=== PATIENT | male | born 1945 | race Caucasian/White ===

== ENCOUNTER 2023-06-17 03:47 | Emergency (ER) | payer MEDICARE, SELFPAY ==
[2023-06-17 03:51] VITALS: BP 125/83; PULSE 77; RESP 18; TEMP 36.9; O2SAT 97; BMI 25.8
--- NOTE | 2023-06-17 04:27 | ED.AMS ---
HPI - Altered Mental Status General Chief Complaint: Altered Mental Status Stated Complaint: AMS Time Seen by Provider: 06/17/23 03:51 Source: EMS Mode of arrival: EMS Limitations: altered mental status History of Present Illness HPI narrative: Patient comes to the emergency room from [facility] for increased altered mental status. EMS reports the patient has history of dementia. Seems that it today patient was being aggressive, PD was called. Then EMS arrived and brought the patient to the emergency room. Patient is unable to give any history. However, patient's nurse was able to talk to the patient's . Seems that patient was sleeping at 3 in the morning, the staff started moving him around the bed changing sheets, patient became upset and aggressive. Also, patient's states that the patient has history of urinary retention. Recently the Peck catheter was removed because the patient kept pulling it out Related Data Allergies Allergy/AdvReac Type Severity Reaction Status Date / Time No Known Allergies Allergy Verified 06/17/23 04:27 Review of Systems Review of Systems: Yes Unobtainable due to mental condition [facility] Past Medical History Medical History (Updated 06/17/23 @ 05:34 by Brenda Roblero MD) Dementia Social History Social History Alcohol intake: never Smoked in Last 30 Days: No Use of substances other than those prescribed or required for medical reasons: No Advance Directives: No Advance Directives Information Provided: No Physical Exam ED Vital Signs: Vital Signs - 24 hr 06/17/23 03:51 Temperature 98.5 F Pulse Rate 77 Respiratory Rate 18 Blood Pressure 125/83 Pulse Oximetry 97 Oxygen Delivery Method Room Air BMI result Body Mass Index 25.8 Const Other: Appearance: Alert. No acute distress. Not making sense at all but patient is calm Eyes: Pupils equal, round and reactive to light. ENT: Pharynx normal. Neck: Normal inspection. Neck supple. No lymph nodes noted. No crepitus CVS: Normal heart rate and rhythm. Pulses normal. Normal S1 and S2 Respiratory: No respiratory distress. Breath sounds normal. No Wheezing. No rales Abdomen: Soft and nontender. No rigidity. No distention. Skin: Skin warm and dry. Normal skin color. Normal skin turgor. Extremities: No lower extremity edema. No Lacerations. No Rash Neuro: Moving all extremities spontaneously. patient is not able to participating cranial nerve assessment. Psych: calm, cooperative Course Course Course Narrative: -all of patient's labs pending Medical Decision Making Medical Decision Making [facility] Narrative: -I was informed by the patient's nurse that the patient has 400 cc of urine. Patient will be straight cathed. Ideally, patient should be returning to the facility with a Peck catheter. However, the patient's is concerned the patient keeps yancy it out. Patient's requesting that if he retains urine, to be straight cath, no Peck's. -bladder scan shows more than 400 cc of urine. Patient was straight cath, patient calm, cooperative, seems that he is feeling better -patient's white blood cell count 13.1, likely reactive leukocytosis, chemistry within normal limits, urine negative for UTI Patient tested negative for COVID and influenza Differential Diagnosis Differential Diagnoses: The differential diagnosis associated with the presentation includes (Dementia, UTI, anger, urinary retention) Lab Data 06/17/23 04:45 06/17/23 04:45 Labs: Lab Results 06/17/23 06/17/23 Range/Units 04:45 04:52 WBC 13.1 H (4.8-10.8) X10*3/uL RBC 4.50 L (4.60-5.80) X10*6/uL Hgb 14.1 (14.0-18.0) g/dl Hct 41.5 L (42.0-52.0) % MCV 92.2 (80.0-98.0) fL MCH 31.3 (27.0-33.0) pg MCHC 34.0 (31.0-36.0) g/dl RDW 13.9 (11.0-16.0) % Plt Count 233 (160-400) X10*3/uL MPV 9.7 (9.4-12.4) fL Immature Gran % (Auto) 1.6 H (0.0-0.4) % Neut % (Auto) 78.3 H (45-73) % Lymph % (Auto) 12.3 L (20-40) % [place] % (Auto) 7.5 (2-11) % Eos % (Auto) 0.1 (0-4) % Baso % (Auto) 0.2 (0-2) % Lymph # (Auto) 1.6 (1.2-4.9) X10*3/uL [place]ah # (Auto) 1.0 (0.1-1.2) X10*3/uL Eos # (Auto) 0.0 (0.0-0.4) X10*3/uL Baso # (Auto) 0.0 (0.0-0.2) X10*3/uL Abs Immat Gran (auto) 0.21 H (0.00-0.03) X10*3/uL Absolute Neuts (auto) 10.3 H (2.0-8.3) x10*3/uL Absolute Nucleated RBC 0.000 (0.0-0.012) X10*3/uL Nucleated RBC % (auto) 0.0 (0.0-0.2) /100WBC Sodium 141 (135-145) mmol/L Potassium 4.8 (3.3-5.1) mmol/L Chloride 104 (96-108) mmol/L Carbon Dioxide 23 (22-29) mmol/L Anion Gap 19 (12-20) BUN 21 H (9-16) mg/dL Creatinine 1.12 (0.5-1.4) mg/dL Estim Creat Clear Calc 59.6 Estimated GFR > 60 Random Glucose 237 H (60-115) mg/dL Calcium 9.5 (8.4-10.2) mg/dL Total Bilirubin 0.5 (0.0-1.0) mg/dL AST 18 (5-37) U/L ALT 14 (0-40) U/L Alkaline Phosphatase 116 (39-117) U/L Total Protein 6.7 (6.5-8.0) g/dL Albumin 3.8 (3.5-5.0) g/dL Urine Color Yellow Urine Appearance Clear Urine pH 7.0 (5.0-9.0) Ur Specific [place] 1.010 (1.005-1.025) Urine Protein Negative (Neg-Trace) mg/dL Urine Glucose (UA) 500 H (Negative) mg/dL Urine Ketones Negative (Negative) mg/dL Urine Blood Negative (Negative) Urine Nitrite Negative (Negative) Ur Leukocyte Esterase Negative (Negative) Urine RBC 0-2 (0-2) /HPF Urine WBC 0-5 (0-5) /HPF Ur Squamous Epith Cells 0-2 (0-2) /HPF Urine Bacteria None Seen (None Seen) Hyaline Casts 0-2 (0-2) /LPF COVID-19 (CONRADO) Negative (Negative) COVID-19 Clin Com See Note Influenza Type A (IZABELA) Negative (Negative) Influenza Type B (IZABELA) Negative (Negative) Influenza A & B Note See Note Discharge Plan Discharge Clinical Impression: Acute urinary retention Patient Disposition: Home, Self-Care Instructions: Urinary Retention in Men (ED) Additional Instructions: Please follow-up with your primary care physician tomorrow. If you have any worsening or new symptoms, please return to the emergency room or call 911
--- OUTSIDE RECORDS SUMMARY | 2023-06-17 04:29 | XMS_ITS | Continuity of Care Document ---
Author Name Unknown Organization [facility] ter Address [address] [place] [id number] Care Team Providers Care Line Up Worker Name Role Phone Bert CALLEJAS, Luma Dixon Primary Care Phys[place] [facility] [place] - 05/08/[address] [id number]- [facility] Encounter Diagnosis Fall(Final) - 05/05/20 Hyperkalemia(Final) - 05/05/20 Discharge Disposition: A-D/C Home Attending Physician: Claudy Echeverria MD Admitting Physician: Haily Smith MD Referring Physician: Not on Staff, Referring MD Allergies, Adverse Reactions, Alerts Substance Reaction Severity Status NKA Active Immunizations Not Given Vaccine Date Status Refusal Reason pneumococcal 13-valent vaccine 05/07/20 Not Given Patient Refuses Medications allopurinol 300 mg oral tablet 300 mg, 1, tablet, By Mouth, Daily, Refills 0, Maintenance, 02/18/20 14:06:00 EDT Start Date: 02/18/20 Status: Ordered aspirin 81 mg oral tablet 1/2 Tablet, By Mouth, Daily, 0 Refills, Maintenance, 02/18/20 14:07:00 EDT Start Date: 02/18/20 Status: Ordered cyanocobalamin 1000 mcg oral tablet 1,000 mcg, 1, tablet, By Mouth, Daily, # 30 tablet, Refills 6, Tot. Refills 6, Maintenance, 05/08/20 11:09:00 EDT, Route to Pharmacy Electronically, [id number], 183, cm, 05/08/20 7:48:00 EDT, Height, 91.2, kg, 05/06/20 16:31:00 EDT, Dry Weight Start Date: 05/08/20 Status: Ordered diltiazem 180 mg/24 hours oral capsule, extended release 180 mg, 1, capsule, By Mouth, Daily, Refills 0, Maintenance, 02/18/20 14:06:00 EDT Start Date: 02/18/20 Status: Ordered glipiZIDE 5 mg oral tablet 5 mg, 1, tablet, By Mouth, 2 times a day, Refills 0, Maintenance, 02/18/20 14:07:00 EDT Start Date: 02/18/20 Status: Ordered lisinopril 2.5 mg oral tablet 2.5 mg, 1, tablet, By Mouth, Daily, Refills 0, Maintenance, 02/18/20 14:06:00 EDT Start Date: 02/18/20 Status: Ordered metoprolol 25 mg oral tablet 25 mg, 1, tablet, By Mouth, 2 times a day, # 60 tablet, Refills 6, Tot. Refills 6, Maintenance, 05/08/20 11:09:00 EDT, Route to Pharmacy Electronically, [id number], 183, cm, 05/08/20 7:48:00 EDT, Height, 91.2, kg, 05/06/20 16:31:00 EDT, Dry... Start Date: 05/08/20 Status: Ordered Vital Signs Most recent to oldest [Reference Range]: 1 2 3 Height 183 cm (05/08/20 7:48 AM) 183 cm (05/07/20 4:15 PM) 183 cm (05/07/20 12:25 PM) Weight 91.2 kg (05/06/20 4:08 PM) Oxygen Saturation [94-100 %] 98 % (05/08/20 7:48 AM) 95 % (05/08/20 3:00 AM) 94 % (05/07/20 11:00 PM) Pulse Rate [55-90 bpm] 84 bpm (05/08/20 8:33 AM) 84 bpm (05/08/20 8:33 AM) 84 bpm (05/08/20 7:48 AM) Body Mass Index [18.5-24.99] 27.23 *H* (05/06/20 4:08 PM) Blood Pressure [90-138/55-84 mm Hg] 146/70mm Hg *H* (05/08/20 8:33 AM) 146/70mm Hg *H* (05/08/20 8:33 AM) 146/70mm Hg *H* (05/08/20 7:48 AM) Respiratory Rate [16-30 br/min] 18 br/min (05/08/20 7:48 AM) 19 br/min (05/08/20 3:00 AM) 17 br/min (05/07/20 11:00 PM) Temperature [96.8-100.4 DegF] 97.7 DegF (05/08/20 7:48 AM) 98.7 DegF (05/08/20 3:00 AM) 97.9 DegF (05/07/20 11:00 PM) Liters per Minute 1 L/min (05/06/20 11:20 AM) 2 L/min (05/06/20 10:50 AM) 2 L/min (05/06/20 10:14 AM) Mode of Delivery (Oxygen) Room air (05/08/20 7:48 AM) Room air (05/08/20 3:00 AM) Room air (05/07/20 11:00 PM) Blood pressure sites Arm, left (05/08/20 7:48 AM) Arm, right (05/08/20 3:00 AM) Arm, right (05/07/20 11:00 PM) Temperature Route Oral (05/08/20 7:48 AM) Oral (05/08/20 3:00 AM) Oral (05/07/20 11:00 PM) Dry Weight 91.2 kg (05/06/20 4:08 PM) Weight Obtained Via Bed scale (05/06/20 4:08 PM) Dry Weight Obtained Via scale (05/06/20 4:08 PM)
--- OUTSIDE RECORDS SUMMARY | 2023-06-17 04:29 | XMS_ITS | Continuity of Care Document ---
Author Name Unknown Organization [facility] Address [address] [place] [id number]- Care Team Providers Care Napper Runner Name Role Phone Jericho CALLEJAS, Ganga Ball Primary Care Physician [phone] [place] [facility] [place] 03/01/[address] [address]- Encounter Diagnosis Dementia(Discharge Diagnosis) - 02/18/23 Chronic kidney disease (CKD), stage III (moderate)(Discharge Diagnosis) - 02/18/23 Hereditary cerebral amyloid angiopathy(Discharge Diagnosis) - 02/18/23 History of fall(Discharge Diagnosis) - 02/18/23 ENEDINA (obstructive sleep apnea)(Discharge Diagnosis) - 02/18/23 Major neurocognitive disorder(Discharge Diagnosis) - 02/18/23 Major neurocognitive disorder due to multiple etiologies with behavioral disturbance(Discharge Diagnosis) - 02/18/23 Discharge Disposition: A-Transfer SNF Attending Physician: Barbara Juarez MD Admitting Physician: Sierra Ying MD Referring Physician: Not on Staff, Referring MD Allergies, Adverse Reactions, Alerts No Known Allergies Immunizations Given and Recorded Vaccine Date Status Refusal Reason SARS-CoV-2 (COVID-19) mRNA BNT-162b2 vac 12/27/20 Recorded SARS-CoV-2 (COVID-19) mRNA BNT-162b2 vac 12/06/20 Recorded tetanus-diphtheria toxoids (Td) 11/21/20 Recorded influenza virus vaccine, inactivated 07/24/18 Mehdi rded influenza virus vaccine, inactivated 07/12/17 Mehdi rded influenza virus vaccine, inactivated 08/01/14 Mehdi rded Not Given Vaccine Date Status Refusal Reason pneumococcal 13-valent vaccine 05/07/20 Not Given Patient Refuses Medications acetaminophen 325 mg oral tablet 975 mg, By Mouth, 3 times a day, Temperature Greater than 100.5, Refills 0, Maintenance, 02/28/23 13:10:00 EDT, Partial fill upon patient request if the prescription is for a schedule II opioid drug. Start Date: 02/28/23 Status: Ordered Acetaminophen Tablet 975 mg, Tablet, By Mouth, Temperature Greater than 100.5, 02/28/23 9:00:00 EDT Start Date: 02/28/23 Stop Date: 02/28/23 Status: Completed allopurinol 300 mg oral tablet 300 mg, 1, tablet, By Mouth, Daily, Refills 0, Maintenance, 02/18/20 14:06:00 EDT Start Date: 02/18/20 Status: Ordered diltiazem 180 mg/24 hours oral capsule, extended release 180 mg, 1, capsule, By Mouth, Daily, Refills 0, Maintenance, 02/18/20 14:06:00 EDT Start Date: 02/18/20 Status: Ordered diltiazem 180 mg/24 hours oral capsule, extended release 180 mg, CD Capsule, By Mouth, Hold for: sbp <110, 02/28/23 9:00:00 EDT Start Date: 02/28/23 Stop Date: 02/28/23 Status: Completed glipiZIDE 5 mg oral tablet 5 mg, 1, tablet, By Mouth, Daily in AM, Refills 0, Maintenance, 02/28/23 13:09:00 EDT, Partial fillupon patient request if the prescription is for a schedule II opioid drug. Start Date: 02/28/23 Status: Ordered lisinopril 5 mg oral tablet 2.5 mg, Tablet, By Mouth, 02/28/23 9:00:00 EDT Start Date: 02/28/23 Stop Date: 02/28/23 Status: Completed melatonin 3 mg oral tablet = 3 mg, By Mouth, Daily at bedtime, PRN Insomnia, 0 Refills, Maintenance, 02/28/23 13:10:00 EDT, Tablet, Partial fill upon patient request if the prescription is for a schedule II opioid drug. Start Date: 02/28/23 Status: Ordered metoprolol 50 mg oral tablet, extended release 50 mg, 1, tablet, By Mouth, Daily, Refills 0, Maintenance, 03/01/23 7:36:00 EDT, Partial fill upon patient request if the prescription is for a schedule II opioid drug. Start Date: 03/01/23 Status: Ordered MiraLax Powder 1 pack/packet = 17 Gm, By Mouth, Daily, PRN Constipation, 0 Refills, Maintenance, 02/28/23 13:10:00EDT, Powder, Partial fill upon patient request if the prescription is for a schedule II opioid drug. Start Date: 02/28/23 Status: Ordered Senna 8.6 mg oral tablet 17.2 mg, 2, tablet, By Mouth, Daily at bedtime, Refills 0, Maintenance, 02/28/23 13:10:00 EDT, Tablet, Partial fill upon patient request if the prescription is for a schedule II opioid drug. Start Date: 02/28/23 Status: Ordered SEROquel 25 mg oral tablet 12.5 mg, 0.5, tablet, By Mouth, 3 times a day, PRN, Refills 0, Maintenance, Anxiety, 02/28/23 13:10:00 EDT, Partial fill upon patient request if the prescription is for a schedule II opioid drug. Start Date: 02/28/23 Status: Ordered simethicone 80 mg oral tablet, chewable 80 mg, Chew, 3 times a day, PRN, Refills 0, Maintenance, Gas, 02/28/23 13:10:00 EDT, Partial fill upon patient request if the prescription is for a schedule II opioid drug. Start Date: 02/28/23 Status: Ordered traZODone 50 mg oral tablet 1, tablet, By Mouth, Daily at bedtime, PRN, # 30 tablet, Refills 0, Maintenance, NEEDED FOR INSOMNIA, 01/21/23 15:24:00 EDT, Route to Pharmacy Electronically, [id number], 183, cm, 12/29/22 14:03:00 EDT, Height Start Date: 01/21/23 Status: Ordered Problem List Condition Confirmation Course Effective Dates Status Health at Informant Atrial fibrillation Confirmed Active Cataract Confirmed Active Chronic kidney disease (CKD), stage III (moderate) Confirmed Active Dementia Confirmed Active Gout Confirmed Active Hereditary cerebral amyloid angiopathy Confirmed Active History of fall Confirmed Active HTN (hypertension) Confirmed Active Occasional tremors Confirmed Active ENEDINA (obstructive sleep apnea) Confirmed Active Periorbital hematoma of left eye Confirmed Active T2DM (type 2 diabetes mellitus) Confirmed Active Diagnosis Diagnosis Type Effective Dates Health Status Clinical Service Informant Dementia Discharge Diagnosis 02/18/23 Chronic kidney disease (CKD), stage III (moderate) Discharge Diagnosis 02/18/23 Hereditary cerebral amyloid angiopathy Discharge Diagnosis 02/18/23 History of fall Discharge Diagnosis 02/18/23 ENEDINA (obstructive sleep apnea) Discharge Diagnosis 02/18/23 Major neurocognitive disorder Discharge Diagnosis 02/18/23 Major neurocognitive disorder due to multiple etiologies with behavioral disturbance Discharge Diagnosis 02/18/23 Results Radiology Reports * Exam Date Time Procedure Performing Provider Status 02/18/23 5:[address] Head/Brain W/O Contrast Anna Willams; Elena (Verified) Notes: (CT Head/Brain W/O Contrast) Reason For Exam: Trauma RESULT: CT Head/Brain W/O Contrast CT Head/Brain W/O Contrast INDICATION: Hx of Present Illness: just discharged after a fall yesterday. returns due to decreasedmobility at home. says hes been more agressive with family at home and increased difficulty moving around.; Reason: Trauma; Clinical Question(s): Hematoma; Order Comment: TECHNIQUE: Noncontrast head CT using axial technique and reconstructed in axial and coronal planes.Iterative reconstruction techniques are used to optimize dose and image quality. CTDIvol Head: 47.80 mGy, DLP Head: 772 mGy*cm. COMPARISON: 02/16/2023. FINDINGS: Steward Dishwasher view findings, lines and tubes: None. BRAIN AND EXTRA-AXIAL SPACES: No parenchymal hemorrhage, midline shift, or mass effect. Ross-white matter differentiation is wellpreserved. No acute infarct. Negative insular ribbon sign. Atherosclerotic vascular calcification of the carotid arteries but negative hyperdense vessel sign. Moderate prominence of the ventricles and sulci consistent with parenchymal volume loss. Moderate low-density white matter changes. No subarachnoid hemorrhage. No subdural or epidural collection. CALVARIUM, SKULL BASE, AND SOFT TISSUES: No fractures or suspicious bony lesions. The paranasal sinuses and mastoid air cells are clear. Status-post bilateral lens extraction. No significant change in size of a small left supraorbital hematoma. IMPRESSION: No acute intracranial pathology. I have personally reviewed the images and I agree with this report. WSN: [id number] Ordering Physician: Danny Arriola Dictated By: Toni CALLEJAS, Jensen Dictated Date/Time: 02/18/23 6:07 am Reviewed By: Melissa Meier MD Signed By: Melissa Meier MD Signed Date/Time: 02/18/23 6:12 am Transcribed By: MIGDALIA Transcribed Date/Time: 02/18/23 5:26 am Vital Signs Most recent to oldest [Reference Range]: 1 2 3 4 Height 183 cm (03/01/23 10:04 AM) 183 cm (02/28/23 9:57 PM) 183 cm (02/28/23 6:30 AM) Weight 90.5 kg (02/19/23 2:17 PM) 91 kg (02/19/23 11:55 AM) 91 kg (02/19/23 8:34 AM) Oxygen Saturation [94-100 %] 95 % (02/28/23 9:57 PM) 95 % (02/28/23 6:30 AM) 95 % (02/27/23 9:20 PM) Pulse Rate [55-90 bpm] 56 bpm (03/01/23 10:04 AM) 113 bpm *H* (02/28/23 9:57 PM) 93 bpm *H* (02/28/23 9:23 AM) Body Mass Index [18.5-24.99 kg/m2] 27.02 kg/m2 *H* (02/19/23 2:17 PM) 27.17 kg/m2 *H* (02/19/23 11:55 AM) 27.17 kg/m2 *H* (02/19/23 8:34 AM) Blood Pressure [90-138/55-84 mm Hg] 112/62mm Hg (03/01/23 10:04 AM) 132/65mm Hg (02/28/23 9:57 PM) 123/58mm Hg (02/28/23 9:23 AM) 123/58mm Hg (02/28/23 9:23 AM) Respiratory Rate [16-30 br/min] 18 br/min (02/28/23 9:57 PM) 16 br/min (02/28/23 10:24 AM) 18 br/min (02/28/23 6:30 AM) Temperature [96.8-100.4 DegF] 97.1 DegF (02/28/23 9:57 PM) 97.6 DegF (02/28/23 6:30 AM) 98.0 DegF (02/27/23 9:20 PM) Mode of Delivery (Oxygen) Room air (02/28/23 9:57 PM) Room air (02/28/23 6:30 AM) Room air (02/27/23 9:20 PM) Blood pressure sites Arm, right (03/01/23 10:04 AM) Arm, right (02/28/23 9:57 PM) Arm, right (02/28/23 6:30 AM) Temperature Route Oral (02/28/23 9:57 PM) Oral (02/28/23 6:30 AM) Oral (02/27/23 9:20 PM) Dry Weight 90.5 kg (02/19/23 2:17 PM) Weight Obtained Via Patient/family stated (02/17/23 9:30 PM) Social History Social History Type Response Smoking Status Never (less than 100 in lifetime) entered on: 07/22/22 Sex Admission evaluation note * Lan Francis: PERFORM Event Display: Admission Note Authored Date: Patient: ??MACK ALY ? Age:??77 Years?Sex:??Male?:??1945?? Chief Complaint/Reason for Consultation General weakness History of Present Illness History obtained from [facility]. ??Patient is a poor historian. 77-year-old male with history of gout, hypertension, atrial fibrillation, diabetes, dementia??presents with weakness.?? He was seen yesterdayin the emergency department??after having a fall.?? Imaging revealed no traumatic injury and he wassent home with PT services.?? At home he became increasingly agitated??and was unable to get out ofthe car. ??He was too weak??to ambulate and family members could not take care of him.?? So they return to the emergency department.?? Psych was??consulted and adjusted his medications since he was agitated.?? He will need to be admitted??for case management and placement.?? Currently he has no physical complaints. Review of Systems CONSTITUTIONAL: ??Denies any fever, chills, changes to weight or fatigue. EYES: Denies any changes to vision, burning or diplopia. HEENT: Denies any WILKERSON, nasal d/c, nose bleeds, changes to voice, vertigo, photophobia, hearing changes or dental problems. CV: Denies any CP, orthopnea, PND, edema, palpitations. PULM: Denies any SOB, wheezing, cough or production of phlegm. ABD: Denies any abdominal pain, N/V/D, heartburn, PRBPR, melena, or changes to bowel habits. : Denies any changes to frequency. ??Denies dysuria, urgency, straining, hematuria, incontinence.? MS: Denies any joint or muscle pain, falls or changes to gait. NEURO: Denies any weakness, numbness, changes to speech confusion or memory loss. SKIN: Denies any rashes or lesions. ?? PSYCH: Denies any depression or anxiety. SIGECAPS negative. Objective Vital Signs?? Temperature: 98.3 DegF (02/18/23 18:14:00) Temperature Route: Oral (02/18/23 18:14:00) Pulse Rate:??97 bpm??High (02/18/23 20:09:00) Respiratory Rate: 16 br/min (02/18/23 20:09:00) Systolic Blood Pressure: 103 mm Hg (02/18/23 20:09:00) Diastolic Blood Pressure: 68 mm Hg (02/18/23 20:09:00) Blood pressure sites: Arm, left (02/18/23 20:09:00) Mean Arterial Pressure: 82 mm Hg (02/18/23 01:42:00) Pulse Pressure: 31 mm Hg (02/18/23 15:16:00) Oxygen Saturation: 97 % (02/18/23 20:09:00) Mode of Delivery (Oxygen): Room air (02/18/23 20:09:00) Early Warning Score: 0 (02/18/23 20:13:04) ? Physical Exam General:??77 year old male??lies in bed comfortably in no acute distress HEENT: NCAT, moist oral mucosa, good dentition, oropharynx without erythema Card: RRR no murmur, non displaced PMI, no JVD, 2+ radial pulse B/L Resp: CTA B/L, no wheezing, rales, ronchi Abdomen: soft and non tender, bowel sounds WNL Extremities: no pitted edema B/L lower extremities Skin: Without rashes or lesions, good turgor Hem/Lymph: without bruising or lymphadenopathy Psych: appropriate affect Neuro: A&OX3, no focal motor deficits Assessment/Plan 77-year-old male with history of gout, hypertension, atrial fibrillation, diabetes, dementia??presents with weakness.? Dementia (F03.90):??. Agitation (R45.1):??Psych consulted appreciate recs Seroquel 12.5 to 25 mg p.o. 3 times daily??as needed??for agitation Olanzapine 2.5 mg IM every 6 hours as needed for severe agitation Trazodone 25 mg twice daily ?? History of fall (Z91.81):??Patient is awaiting placement in a rehab ?? Hypertension (I10):??Continue lisinopril ?? ENEDINA (obstructive sleep apnea) (G47.33):??CPAP ordered ?? Atrial fibrillation (I48.91):??Continue diltiazem,??metoprolol ?? History of gout (Z87.39):??Continue allopurinol ?? Diabetes: Continue glipizide ?? VTE Prophylaxis:??Pneumoboots ?VTE Prophylaxis Assessment:??VTE Prophylaxis Ordered ?? Discharge Planning:??Awaiting placement ? Histories Allergies Allergies ?(Active and Proposed Allergies Only) NKA? (Severity: Unknown severity, Onset: Unknown) ? Past Medical History/Problem List Active Problems??(12) Atrial fibrillation Cataract Chronic kidney disease (CKD), stage III (moderate) Dementia Gout Hereditary cerebral amyloid angiopathy History of fall HTN (hypertension) Occasional tremors ENEDINA (obstructive sleep apnea) Periorbital hematoma of left eye T2DM (type 2 diabetes mellitus) ? Past Surgical History None ? Social History Alcohol Details:??Use: Never. Employment/School Details:??Status: Retired. Exercise Details:??Self assessment: Fair condition. Home/Environment Details:??Living situation: Home/Independent. ??Lives with: Spouse. Nutrition/Health Details:??Diet: Regular. Sexual Details:??Gender identity: Identifies as male. Substance Abuse Details:??Use: Never. Tobacco Details:??Use: Never (less than 100 in lifetime). Details:??Use: Never (less than 100 in lifetime). Electronic Cigarette/Vaping Details:??Electronic Cigarette Use: Never. ? Family History Father (): Heart attack Sister (): Stroke Brother: Parkinson disease ? Medications Home Medications Allopurinol (allopurinol 300 mg oral tablet)?300?Milligram?1?tablet?By Mouth?Daily Diltiazem (diltiazem 180 mg/24 hours oral capsule, extended release)?180?Milligram?1?capsule?By Mouth?Daily GlipiZIDE (glipiZIDE 5 mg oral tablet)?5?Milligram?1?tablet?By Mouth?2 times a day Lisinopril (lisinopril 2.5 mg oral tablet)?2.5?Milligram?1?tablet?By Mouth?Daily Metoprolol (Metoprolol Tartrate 50 mg oral tablet)?1?tab(s)?By Mouth?2 times a day?for 30?Days Trazodone (traZODone 50 mg oral tablet)?1?tablet?By Mouth?Daily at bedtime?as needed? NEEDED FOR INSOMNIA ? Results Recent Labs BLOOD COUNT & DIFF WBC 10.3 k/mm3 ()?? 02/17/2023 00:45 RBC 4.66 m/mm3 (Low)?? 02/17/2023 00:45 Hgb 15.0 Gm/dL ()?? 02/17/2023 00:45 Hct 44.0 % ()?? 02/17/2023 00:45 MCV 94.4 femtoliters (High)?? 02/17/2023 00:45 MCH 32.2 pg ()?? 02/17/2023 00:45 MCHC 34.1 g/dL ()?? 02/17/2023 00:45 Platelet Count 194 k/mm3 ()?? 02/17/2023 00:45 RDW-SD 51.5 femtoliters (High)?? 02/17/2023 00:45 MPV 9.5 femtoliters ()?? 02/17/2023 00:45 Nucleated RBC (Automated) 0.0 #/100 WBC'S ()?? 02/17/2023 00:45 Abs. NRBC 0.0 k/mm3 ()?? 02/17/2023 00:45 Abs. Neut 7.3 k/mm3 (High)?? 02/17/2023 00:45 Abs. Lymph 1.8 k/mm3 ()?? 02/17/2023 00:45 Abs. [place] 0.9 k/mm3 ()?? 02/17/2023 00:45 Abs. Eo 0.1 k/mm3 ()?? 02/17/2023 00:45 Abs. Baso 0.1 k/mm3 ()?? 02/17/2023 00:45 Neut % 71.0 % ()?? 02/17/2023 00:45 Lymph % 17.3 % ()?? 02/17/2023 00:45 [place] % 9.0 % ()?? 02/17/2023 00:45 Eos % 0.7 % ()?? 02/17/2023 00:45 Baso % 0.8 % ()?? 02/17/2023 00:45 Imm Gran 1.2 % ()?? 02/17/2023 00:45 Abs. Imm Gran 0.1 k/mm3 ()?? 02/17/2023 00:45 ?? CARDIAC Nt-Probnp 381 pg/mL ()?? 02/17/2023 00:45 High Sensitivity Troponin (HSTnT) 109 ng/L (Critical)?? 02/17/2023 02:19 ?? CHEM GENERAL Sodium 138 mmol/L ()?? 02/17/2023 00:45 Potassium 4.4 mmol/L ()?? 02/17/2023 00:45 Chloride 103 mmol/L ()?? 02/17/2023 00:45 Bicarbonate Level 21 mmol/L (Low)?? 02/17/2023 00:45 Anion Gap 14 ()?? 02/17/2023 00:45 Glucose Level 156 mg/dL (High)?? 02/17/2023 00:45 Glucose, POC 107 mg/dL (High)?? 02/18/2023 11:52 BUN 37 mg/dL (High)?? 02/17/2023 00:45 Creatinine-Blood 1.6 mg/dL (High)?? 02/17/2023 00:45 Estimated GFR Creatinine 43 ML/MIN/1.73 M2 ()?? 02/17/2023 00:45 Calcium 9.6 mg/dL ()?? 02/17/2023 00:45 Calcium, Ionized pH Corrected 1.28 mmol/L ()?? 02/17/2023 00:45 Magnesium 1.8 mg/dL ()?? 02/17/2023 00:45 ?? ENDOCRINE/TUMOR MARKER TSH 1.83 uIU/mL ()?? 02/17/2023 00:45 ?? HEME OTHER Hold Blue Top SPECIMEN DISCARDED AFTER 4 HOURS. ()?? 02/17/2023 00:45 ?? UA/URINALYSIS Appear/Color, Urine YELLOW ()?? 02/17/2023 02:03 Specific [place], Urine 1.012 ()?? 02/17/2023 02:03 pH, Urine 5.0 ()?? 02/17/2023 02:03 Albumin, Urine TRACE (Abnormal)?? 02/17/2023 02:03 Glucose, Urine TRACE (Abnormal)?? 02/17/2023 02:03 Ketones, Urine NEGATIVE ()?? 02/17/2023 02:03 Bilirubin, Urine NEGATIVE ()?? 02/17/2023 02:03 Hemoglobin, Urine NEGATIVE ()?? 02/17/2023 02:03 Nitrite, Urine NEGATIVE ()?? 02/17/2023 02:03 Leukocyte, Urine NEGATIVE ()?? 02/17/2023 02:03 Urobilinogen NORMAL mg/dL ()?? 02/17/2023 02:03 WBC's, Urine <1 /HPF ()?? 02/17/2023 02:03 RBC's, Urine 1 /HPF ()?? 02/17/2023 02:03 Squamous Epith <1 /HPF ()?? 02/17/2023 02:03 Mucus SLIGHT /LPF ()?? 02/17/2023 02:03 Hold Urine Culture Testing available 48 hours from time of collection. ()?? 02/17/2023 02:03 ?? VIROLOGY COVID-19 by RT-PCR NEGATIVE ()?? 02/18/2023 03:47 ? Hospital Progress note * Antoni Garcia RN: PERFORM, SIGN, VERIFY Event Display: Progress Note Hospital Authored Date: Patient: MACK ALY Age: 77 years Sex: Male : 1945 Associated Diagnoses: None Author: Antoni Garcia RN Findings Narrative/Incidental Pt A&O*self. VSS. denied any pain for me. All AM meds admin ex the ones significant other refused. Pt ordered for D/C. all paper work done per protocol and given to [facility] including a mini bedside report. pt had no belongings on record with him. He did not have a PIV in site. Given pants; socks and a anamaria to leave with because had no own clothes. picked up via [facility] in stretcher to go to rehab. safety maintained. . Discharge Information Case Management Discharge Plan : Case Management Discharge Plan Data 02/28/2023 15:08 EDT Discharge Level of Care at Discharge Not Done: no DC today (Not Done) 02/28/2023 9:21 EDT Discharge Level of Care at Discharge [facility] facility Discharge Nursing Homes/Rehab Facilities [facility] [address] Leigh Snow [place] (Modified) Discharge Transportation Arranged [facility] [address] [place] [address] Discharge Arranged Transport Date/Time 03/01/2023 10:00 (Modified) Mode of Transportation Arranged Ambulance Name of Agency #1 [facility] (Modified) Agency Night Nurse #1 Leslye Rodriguez, clinical liaison, [facility] (Modified) Service Categories #1 Occupational Therapy, Physical Therapy, Half-Way Service Start Date and Time #1 03/01/2023 10:00 Service Comments #1 Your hospitalist has determined you are cleared to transfer to [facility] to continue your rehabilitation & recovery. You will be transported there by ambulance. Your /health care proxy Cyn is aware of & agrees with this plan. (Modified) Rehabilitation Discharge : Rehab Discharge Index 02/26/2023 8:11 EDT Comments on treatment indicated Rec'd dysphagia diet level 3 and thin liquids w/aspiration precautions, watch for swallow and remind to swallow as needed, solid-liquid alternation, 1:1 feed. May have familir soft foods from home. RN consutled. ST to follow up Full chart review completed Yes Hospital course Hospital course * Tyler BURKS, Courtney: PERFORM, SIGN, VERIFY Event Display: Progress Note Hospital Authored Date: [id number] Patient: MACK ALY Age: 77 years Sex: Male : 1945 Associated Diagnoses: None Author: Tyler BURKS, Courtney Findings Problem Related to Alteration in Neurological : Alteration in Neurological Function/new 02/28/2023 11:00 EDT Alteration in Neuro status Related to Alzheimer's/Dementia Goals & Outcomes, Neurological Pt is safe with transfers & activities, Pt will maintain intact skin integrity, Pt will remain free from injury Interventions, Neurological Assess/monitor neurologic status Goals/Interventions, Neurological Yes Neurological, Problem Start 02/19/2023 19:30 Reviewed plan with, Neurological Patient Patient Progression, Neurological Pt progressing according to plan . Evaluation P: Alteration in Neurological Function I: Interventions per care plan E: Patient A+Ox1, confused, calm and cooperative with care at this time. at bedside, requesting diet order change, MD notified, ST recommending dysphagia level 3 with thin liquids on 02/26, education provided, 1:1 feed, taking medications crushed in pudding. CM working on DC plan. Plan is for DC to rehab facility 1000 on 03/01 via [facility]. Currently resting in bed at this time, bed in [facility], call rodríguez within reach, bed alarm on. . Discharge Information Case Management Discharge Plan : Case Management Discharge Plan Data 02/28/2023 15:08 EDT Discharge Level of Care at Discharge Not Done: no DC today (Not Done) 02/28/2023 9:21 EDT Discharge Level of Care at Discharge [facility] facility Discharge Nursing Homes/Rehab Facilities [facility] [address] Leigh Snow [place] (Modified) Discharge Transportation Arranged [facility] Discharge Arranged Transport Date/Time 03/01/2023 10:00 (Modified) Mode of Transportation Arranged Ambulance Name of Agency #1 [facility] [place] (Modified) Agency Night Nurse #1 Leslye Rodriguez, clinical liaisonLAMINE (Modified) Service Categories #1 Occupational Therapy, Physical Therapy, Half-Way Service Start Date and Time #1 03/01/2023 10:00 Service Comments #1 Your hospitalist has determined you are cleared to transfer to [facility] to continue your rehabilitation & recovery. You will be transported there by ambulance. Your /health care proxy Cyn is aware of & agrees with this plan. (Modified) Rehabilitation Discharge : Rehab Discharge Index 02/26/2023 8:11 EDT Comments on treatment indicated Rec'd dysphagia diet level 3 and thin liquids w/aspiration precautions, watch for swallow and remind to swallow as needed, solid-liquid alternation, 1:1 feed. May have familir soft foods from home. RN consutled. ST to follow up Full chart review completed Yes Hospital course Hospital course * Larry CALLEJAS, Barbara Rodriguez: PERFORM Event Display: Progress Note Hospital Authored Date: [id number] Patient: ??MACK ALY ? Age:??77 Years?Sex:??Male?:??1945? Discharged to rehab, but does not want that one She wants rehab closer to her home Will cancel discharge Will d/c am ?? pl see my d/c summary as progress note Note * Antoni Garcia RN: PERFORM Event Display: Discharge/Transfer Note Hospital Authored Date: [id number] Nursing Discharge Note Entered On: 03/01/2023 10:48 EDT Performed On: 03/01/2023 10:47 EDT by Antoni Garcia RN Nursing Discharge Note 2 Discharge Time : 03/01/2023 10:25 EDT Discharge Level of Care at Discharge : [facility] facility Discharge Nursing Homes/Rehab Facilities : [address] Leigh Snow [place] Patient Left Unit Via : Ambulance Patient Accompanied Off Unit with : Ambulance/Ch[facility] Van Personnel Handover Given to Transport Personnel : Yes DC Instructions Provided & Signed by Pt : Unable Patient Understands D/C Instructions : Unable Patient Instructions Discharge Signed : Yes Did Pt have Specialty Bed or Wound Vac : Yes Antoni Garcia RN - 03/01/2023 10:47 EDT * Larry CALLEJAS, Barbara Rodriguez: PERFORM Event Display: Discharge/Transfer Note Hospital Authored Date: [id number] Patient: ??MCAK ALY ? Age:??77 Years?Sex:??Male?:??1945?? Patient Information Discharge Location: [facility] Primary Care Physician: Ganga Echavarria MD Admit Date/Time: 02/19/23 14:09 Discharge Disposition Discharge Disposition: ?? 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 _ Discharge Medications Acetaminophen (acetaminophen 325 mg oral tablet)?975?Milligram?By Mouth?3 times a day?Temperature Greater than 100.5 Allopurinol (allopurinol 300 mg oral tablet)?300?Milligram?1?tablet?By Mouth?Daily Diltiazem (diltiazem 180 mg/24 hours oral capsule, extended release)?180?Milligram?1?capsule?By Mouth?Daily GlipiZIDE (glipiZIDE 5 mg oral tablet)?5?Milligram?1?tablet?By Mouth?Daily in AM Melatonin (melatonin 3 mg oral tablet)?3?Milligram?By Mouth?Daily at bedtime?as needed?Insomnia Metoprolol (metoprolol 50 mg oral tablet, extended release)?50?Milligram?1?tablet?ByMouth?Daily Polyethylene Glycol 3350 (MiraLax Powder)?1?pack/packet?17?gram?By Mouth?Daily?as needed?Constipation Quetiapine (SEROquel 25 mg oral tablet)?12.5?Milligram?0.5?tablet?By Mouth?3 times a day?as needed?Anxiety Senna (Senna 8.6 mg oral tablet)?17.2?Milligram?2?tab(s)?By Mouth?Daily at bedtime Simethicone (simethicone 80 mg oral tablet, chewable)?80?Milligram?Chew?3 times a day?as needed?Gas Trazodone (traZODone 50 mg oral tablet)?1?tablet?By Mouth?Daily at bedtime?as needed? NEEDED FOR INSOMNIA ? Medications Started Seroquel, melatonin, bowel meds Medications Discontinued Lisinopril Doses Changed Metoprolol to XL 50 daily (from 50 mg BID) Glipizide reduced to 5 mg daily (was on BID at home) Allergies Allergies ?(Active and Proposed Allergies Only) NKA? (Severity: Unknown severity, Onset: Unknown) ? Hospital Course 77 y/o male with h/o multifactorial dementia (micro-hemorrhagic infarcts, cerebral amyloid angiopathy), CAD, HTN, A-fib, DM 2 who presents with generalized weakness and repeated falls at home (appearing to be mechanical). Hospital course complicated by delirium. ?? Delirium (R41.0) Agitation (R45.1) Dementia (F03.90) Cerebral amyloid angiopathy (I68.0) Metabolic work-up benign: CBC, CMP, TSH, CTH, no SIRS.? Appears to have hyperactive delirium, potentially in setting of hospitalization ?? Geriatric consulted and adjusted meds He is more calm and cooperative now PT recommended rehab ?? He is being discharged to[facility]in a stable condition ? Plan: Will continue seroquel and melatonin Would recommend non pharmacologic delirium precautions ? History of fall (Z91.81): appears mechanical. PT rec rehab. ?going to rehab ?? CHRONIC MEDICAL CONDITIONS: Hypertension (I10): Continue CCB and BB ? History of gout (Z87.39): Continue allopurinol ? DM2: Will continue??glipizide ? Code Status: Full ? Diet: Dys 3 with thin liq? Objective ? Discharge Planning:? Vital Signs?? Temperature: 97.1 DegF (02/28/23 21:57:00) Temperature Route: Oral (02/28/23 21:57:00) Pulse Rate:??113 bpm??High (02/28/23 21:57:00) Respiratory Rate: 18 br/min (02/28/23 21:57:00) Systolic Blood Pressure: 132 mm Hg (02/28/23 21:57:00) Diastolic Blood Pressure: 65 mm Hg (02/28/23 21:57:00) Blood pressure sites: Arm, right (02/28/23 21:57:00) Mean Arterial Pressure: 87 mm Hg (02/28/23 21:57:00) Pulse Pressure: 67 mm Hg (02/28/23 21:57:00) Oxygen Saturation: 95 % (02/28/23 21:57:00) Mode of Delivery (Oxygen): Room air (02/28/23 21:57:00) Early Warning Score: 6 (02/28/23 22:47:17) ? . Physical Exam Awake, alert, oriented Lungs: Clear to auscultation bilateral, no wheezing no rales Heart: Regular rate and rhythm, no murmur, no rub or gallop Abdomen: Soft, nontender, nondistended; Bowel sounds present Extremity: No edema cyanosis clubbing Neurological: No focal deficit Psychiatric: Normal mood and affect Pending Results Add On Lab Order ordered on 02/20/2023 Add On Lab Order ordered on 02/22/2023 Add On Lab Order ordered on 02/22/2023 Follow-Up Appointments Added Follow Up ?Time Frame ?Comments Ganga Echavarria MD?If discharged from rehab Ganga Echavarria MD Post Discharge Care Discharge Prescriptions ?None, ??02/28/23 13:17:00 EDT Home Health Face to Face ^[facility] Results Discharge Labs BLOOD COUNT & DIFF WBC 9.9 k/mm3 ()?? 02/20/2023 00:14 RBC 4.82 m/mm3 ()?? 02/20/2023 00:14 Hgb 15.9 Gm/dL ()?? 02/20/2023 00:14 Hct 46.0 % ()?? 02/20/2023 00:14 MCV 95.4 femtoliters (High)?? 02/20/2023 00:14 MCH 33.0 pg ()?? 02/20/2023 00:14 MCHC 34.6 g/dL ()?? 02/20/2023 00:14 Platelet Count 195 k/mm3 ()?? 02/20/2023 00:14 RDW-SD 51.6 femtoliters (High)?? 02/20/2023 00:14 MPV 9.5 femtoliters ()?? 02/20/2023 00:14 Nucleated RBC (Automated) 0.0 #/100 WBC'S ()?? 02/20/2023 00:14 Abs. NRBC 0.0 k/mm3 ()?? 02/20/2023 00:14 Abs. Neut 7.1 k/mm3 (High)?? 02/20/2023 00:14 Abs. Lymph 1.6 k/mm3 ()?? 02/20/2023 00:14 Abs. [place] 0.9 k/mm3 ()?? 02/20/2023 00:14 Abs. Eo 0.2 k/mm3 ()?? 02/20/2023 00:14 Abs. Baso 0.1 k/mm3 ()?? 02/20/2023 00:14 Neut % 71.8 % ()?? 02/20/2023 00:14 Lymph % 15.8 % ()?? 02/20/2023 00:14 [place] % 8.6 % ()?? 02/20/2023 00:14 Eos % 1.8 % ()?? 02/20/2023 00:14 Baso % 0.8 % ()?? 02/20/2023 00:14 Imm Gran 1.2 % ()?? 02/20/2023 00:14 Abs. Imm Gran 0.1 k/mm3 ()?? 02/20/2023 00:14 ?? CHEM GENERAL Sodium 139 mmol/L ()?? 02/22/2023 10:10 Potassium 4.4 mmol/L ()?? 02/22/2023 10:10 Chloride 104 mmol/L ()?? 02/22/2023 10:10 Bicarbonate Level 23 mmol/L ()?? 02/22/2023 10:10 Anion Gap 12 ()?? 02/22/2023 10:10 Glucose Level 210 mg/dL (High)?? 02/22/2023 10:10 Glucose, POC 163 mg/dL (High)?? 02/28/2023 21:37 Hemoglobin A1C (Monitoring) 7.9 % (High)?? 02/22/2023 19:11 BUN 33 mg/dL (High)?? 02/22/2023 10:10 Creatinine-Blood 1.4 mg/dL (High)?? 02/22/2023 10:10 Estimated GFR Creatinine 53 ML/MIN/1.73 M2 ()?? 02/22/2023 10:10 Calcium 9.9 mg/dL ()?? 02/20/2023 00:14 Phosphorus 3.6 mg/dL ()?? 02/20/2023 00:14 Magnesium 1.9 mg/dL ()?? 02/22/2023 10:10 Protein, Total 5.6 Gm/dL (Low)?? 02/22/2023 10:10 Albumin 4.0 Gm/dL ()?? 02/22/2023 10:10 Alkaline Phosphatase 110 units/L ()?? 02/22/2023 10:10 AST (SGOT) 25 units/L ()?? 02/22/2023 10:10 ALT (SGPT) 24 units/L ()?? 02/22/2023 10:10 Bilirubin, Total 1.0 mg/dL ()?? 02/22/2023 10:10 Bilirubin, Direct 0.3 mg/dL ()?? 02/22/2023 10:10 Bilirubin, Indirect 0.7 mg/dL ()?? 02/22/2023 10:10 Vitamin B12 Level 858 pg/mL ()?? 02/20/2023 00:14 Folic Acid Level HEMOLYZED ng/mL ()?? 02/20/2023 00:14 ?? URINE OTHER Est Creatinine Clearance 47.80 mL/min ()?? 02/22/2023 11:28 ? VIROLOGY COVID-19 by RT-PCR NEGATIVE ()?? 02/18/2023 03:47 ? 35 minutes spent on discharge * Antoni Garcia RN: PERFORM Event Display: Patient Education/Instruction Authored Date: [id number] Inpatient Adult Discharge Instructions [address] [address] Name: MACK ALY : 1945 Visit: 02/19/2023 14:09:00 Current Date: 03/01/2023 09:39 Account: [id number] Inpatient Adult Discharge Instructions We would like to thank you for allowing us to assist you with your healthcare needs. The following includes patient education materials and information regarding your injury/illness. Our entire staffstrives to provide an excellent experience for our patients and their families. PLEASE ENSURE YOU FOLLOW-UP PER THE INSTRUCTIONS BELOW! ?? YOUR OPINION IS IMPORTANT TO US! Please complete the survey you may receive by mail or email. Your feedback will be used to make improvements to the healthcare experiences of our patients and their families. Surveys are administered by [employer] ?? If further treatment with your primary care physician or another doctor is recommended, it is important for you to keep the appointment. Call your primary care physician or return to the Emergency Department immediately if your condition worsens, fails to improve, or new symptoms develop. If you need to find a doctor, you can call [facility] [employer] for a referral at [phone] or toll free at [phone] or log in to [email or web address].. ?? You can view and manage your care through the patient portal or by using a health care areli of your choosing. [employer] is a website that allows you to securely view your medical information including your hospital discharge summary, office visit summaries, medications and follow-up visits. You can also request appointments, renew medications, and request access to your medical information using a health care areli of your choosing, or just ask a question. You can enroll at [email or web address] or register during your next office visit. You have been discharged from [facility], Patient Care Unit: S64. If you have any questions regarding these instructions after you leave, please call us and we will be happy to assist you. [facility] Your Care Team Attending Physician Barbara Juarez MD Consulting Providers Nicky Chopra MD Discharging Providers Barbara Juarez MD Reason for Admission AGITATION Your Diagnosis Dementia Chronic kidney disease (CKD), stage III (moderate) Hereditary cerebral amyloid angiopathy History of fall ENEDINA (obstructive sleep apnea) Major neurocognitive disorder Major neurocognitive disorder due to multiple etiologies with behavioral disturbance Agitation Hypertension Atrial fibrillation History of gout Tests Performed Below is a partial list of the tests performed during your hospitalization. You may have had other tests and procedures not included in this list. Please discuss all test results with your provider. BUN Calcium Level CBC CBC w/ Differential COVID-19 (Novel Coronavirus), Rapid PCR CREATININE ELECTROLYTES FOLIC ACID GLUCOSE GLUCOSE POC HEPATIC FUNCTION PANEL Hgb A1C (Monitoring) MAGNESIUM Phosphorus Level VITAMIN B12 CT Head/Brain W/O Contrast Primary Care Provider Ganga Echavarria MD Advance Directive Health Care Proxy on File Yes - Health Care Proxy Discharge Vitals Temperature: 97.1 DegF Height: 183 cm Pulse Rate:??113 bpm??High Weight: 90.5 kg Respiratory Rate: 18 br/min Body Mass Index:??27.02 kg/m2??High Systolic Blood Pressure: 132 mm Hg Body surface area: 2.14 Diastolic Blood Pressure: 65 mm Hg ?? Oxygen Saturation: 95 % ?? Studies Pending All tests and labs ordered during this hospital stay have been completed unless listed below. Please discuss all pending results with your provider listed above in these instructions. ?? Add On Lab Order What to do next Instructions From Your Doctor Discharge Orders You Need to Schedule the Following Appointments Follow Up with??Ganga Echavarria MD Why: If discharged from rehab Where: [address] [place] [address]- Follow Up with??Ganga Echavarria MD Where: [address], [place] [id number]- Discharge Medications MACK ALY :1945 Visit Date:02/19/2023 Medications: Please continue your medications until treatment is completed or stopped by your provider. Medications not listed below should be discontinued. Discuss any questions related to medications with your provider. What How Much When Instructions Next Dose New Acetaminophen (acetaminophen 325 mg oral tablet) 975 Milligram Oral 3 times a day Temperature Greater than 100.5 ?? 03/01/23 AT 3PM New Melatonin (melatonin 3 mg oral tablet) 3 Milligram Oral Daily at Bedtime as needed for Insomnia NEEDED New Polyethylene Glycol 3350 (MiraLax Powder) 17 gram Oral Daily as needed for Constipation NEEDED New Quetiapine (SEROquel 25 mg oral tablet) 0.5 tab(s) Oral 3 times a day as needed for Anxiety NEEDED New Senna (Senna 8.6 mg oral tablet) 2 tab(s) Oral Daily at Bedtime 03/01/23 AT 9PM New Simethicone (simethicone 80 mg oral tablet, chewable) 80 Milligram Chew 3 times a day as needed for Gas NEEDED Changed GlipiZIDE (glipiZIDE 5 mg oral tablet) 1 tab(s) Oral Daily in the morning 03/02/23 AT 9AM Changed Metoprolol (metoprolol 50 mg oral tablet, extended release) 1 tab(s) Oral Daily 03/02/23 AT 9AM Unchanged Allopurinol (allopurinol 300 mg oral tablet) 1 tab(s) Oral Daily 03/02/23 AT 9AM Unchanged Diltiazem (diltiazem 180 mg/ 24 hours oral capsule, extended release) 1 capsule Oral Daily 03/02/23 AT 9AM Unchanged Trazodone (traZODone 50 mg oral tablet) 1 tab(s) Oral Daily at Bedtime as needed for NEEDED FOR INSOMNIA NEEDED ?? What How Much When Comments Stop Taking Lisinopril (lisinopril 2.5 mg oral tablet) 1 tab(s) Oral Daily Test Results Below is a partial list of the most recent Laboratory test results done prior to this discharge. You may have had other tests and procedures not included in this list. Please discuss all test resultswith your provider. Est Creatinine Clearance - 47.80 mL/min (02/22/2023) BUN (02/22/2023) ???BUN - 33 mg/dL Calcium Level (02/20/2023) ???Calcium - 9.9 mg/dL CBC (02/19/2023) ???WBC - 9.9 k/mm3???RBC - 4.67 m/mm3???Hgb - 15.2 Gm/dL???Hct - 44.9 %???MCV - 96.1 femtoliters???MCH - 32.5 pg???MCHC - 33.9 g/dL???Platelet Count - 208 k/mm3???RDW-SD - 52.5 femtoliters???MPV - 9.7 femtoliters???Nucleated RBC (Automated) - 0.0 #/100 WBC'S???Abs. NRBC - 0.0 k/mm3 CBC w/ Differential (02/20/2023) ???WBC - 9.9 k/mm3???RBC - 4.82 m/mm3???Hgb - 15.9 Gm/dL???Hct - 46.0 %???MCV - 95.4 femtoliters???MCH - 33.0 pg???MCHC - 34.6 g/dL???Platelet Count - 195 k/mm3???RDW-SD - 51.6 femtoliters???MPV - 9.5 femtoliters???Nucleated RBC (Automated) - 0.0 #/100 WBC'S???Abs. NRBC - 0.0 k/mm3???Abs. Neut - 7.1 k/mm3???Abs. Lymph - 1.6 k/mm3???Abs. [place] - 0.9 k/mm3???Abs. Eo - 0.2 k/mm3???Abs. Baso - 0.1 k/mm3???Neut % - 71.8 %???Lymph % - 15.8 %???[place] % - 8.6 %???Eos % - 1.8 %???Baso % - 0.8 %???Imm Gran- 1.2 %???Abs. Imm Gran - 0.1 k/mm3 COVID-19 (Novel Coronavirus), Rapid PCR (02/18/2023) ???COVID-19 by RT-PCR - NEGATIVE CREATININE (02/22/2023) ???Creatinine-Blood - 1.4 mg/dL???Estimated GFR Creatinine - 53 ML/MIN/1.73 M2 ELECTROLYTES (02/22/2023) ???Sodium - 139 mmol/L???Potassium - 4.4 mmol/L???Chloride - 104 mmol/L???Bicarbonate Level - 23 mmol/L???Anion Gap - 12 FOLIC ACID (02/20/2023) ???Folic Acid Level - HEMOLYZED GLUCOSE (02/22/2023) ???Glucose Level - 210 mg/dL GLUCOSE POC (03/01/2023) ???Glucose, POC - 78 mg/dL HEPATIC FUNCTION PANEL (02/22/2023) ???Protein, Total - 5.6 Gm/dL???Albumin - 4.0 Gm/dL???Alkaline Phosphatase - 110 units/L???AST (SGOT) - 25 units/L???ALT (SGPT) - 24 units/L???Bilirubin, Total - 1.0 mg/dL???Bilirubin, Direct - 0.3 mg/dL???Bilirubin, Indirect - 0.7 mg/dL Hgb A1C (Monitoring) (02/22/2023) ???Hemoglobin A1C (Monitoring) - 7.9 % MAGNESIUM (02/22/2023) ???Magnesium - 1.9 mg/dL Phosphorus Level (02/20/2023) ???Phosphorus - 3.6 mg/dL VITAMIN B12 (02/20/2023) ???Vitamin B12 Level - 858 pg/mL Allergies (NKA means No Known Allergies) NKA Problems Active Problems??(12) Atrial fibrillation?? Cataract?? Chronic kidney disease (CKD), stage III (moderate)?? Dementia?? Gout?? Hereditary cerebral amyloid angiopathy?? History of fall?? HTN (hypertension)?? Occasional tremors?? ENEDINA (obstructive sleep apnea)?? Periorbital hematoma of left eye?? T2DM (type 2 diabetes mellitus)?? Education Materials Below is the list of Educational Leaflet Providered with your Discharge Instructions. Valuables and Belongings I fully understand and agree that [facility] accepts no responsibility for all my personal property including clothing, toilet articles, radios, jewelry, dentures, hearing aids, rings, money, or any other property that is in my possession or is brought to me after admission. I understand certain valuables may be placed in a hospital safe for a short period of time. I understand that the hospital is not liable for loss or damage due to accident, fire, or other natural occurrence while said property is in the safe. I accept full responsibility for any personal property that I keep with me, and will not hold the hospital responsible in case of loss or disappearance. I acknowledge that i have been encouraged to send valuables and belongings home. ?? No Valuables/Belongings: No valuables/belongings present Review of Valuable and Belonging List: With family, With witness Disposition of Belongings: Sent home with patient/family Possessions released to: Cyn Aly : The only belongings left at the hospital is the patient's yazidism necklace. Date for Pt to Sign Valuables/Belongings: 02/19/23 13:40:00 ?? Other Discharge Information ?? Wound Assessment?? Wound Assessment?? Wound Location I: Forearm, left Wound Type I: Skin Tear Wound I, Present on Admission: Yes Wound Location II: Forearm, right Wound Type II: Skin Tear Wound II, Present on Admission: Yes Wound Location III: Knee, left Wound Type III: Shear Injury Wound III, Present on Admission: Yes ? Case Management Discharge Plan?? Discharge Plan?? Discharge Agency Information?? Discharge Level of Care at Discharge: [facility] facility Name of Agency #1: [facility] Discharge Transportation Arranged: [facility] [address] [place] [address] ??[phone] Agency Night Nurse #1: Leslye Rodriguez clinical liaison, [facility] Mode of Transportation Arranged: Ambulance Service Start Date and Time #1: 03/01/23 10:00:00 Discharge Arranged Transport Date/Time: 03/01/23 10:00:00 Service Categories #1: Occupational Therapy, Physical Therapy, Half-Way Discharge Nursing Homes/Rehab [facility]ilities[facility] [address] [facility] ?? Service Comments #1: Your hospitalist has determined you are cleared to transfer to [facility] to continue your rehabilitation & recovery. You will be transported there by ambulance. Your /health care proxy Cyn is aware of & agrees with this plan. ?? Pulmonary Rehab Status?? Pulmonary Rehab Discharge Status?? Respiratory Rate: 18 br/min ? Common Emergency Awareness Tips IS IT A STROKE? Act FAST and Check for these signs: FACE Does the face look uneven? ARM Does one arm drift down? SPEECH Does their speech sound strange? TIME Call at any sign of stroke ?? Heart Attack Signs Chest discomfort: Most heart attacks involve discomfort in the center of the chest and lasts more than a few minutes, or goes away and comes back. It can feel like uncomfortable pressure, squeezing, fullness or pain. Discomfort in upper body: Symptoms can include pain or discomfort in one or both arms, back, neck, jaw or stomach. Shortness of breath: With or without discomfort. Other signs: Breaking out in a cold sweat, nausea, or lightheaded. Remember, MINUTES DO MATTER. If you experience any of these heart attack warning signs, call to get immediate medical attention! ?? Smoking can increase your chances of developing chronic health problems and can cause harmful effects to other family members in your house. If you smoke, you are strongly encouraged to quit. Please call [facility] [employer] at [phone] or [phone] ([phone]) or log in to [email or web address] for referrals to smoking cessation programs. ?? 235 Suicide & Crisis Lifeline is available 11/04 if you or someone you know needs to find a reason to keep living. By calling 454 you'll be connected to a skilled, trained counselor at a crisis center in your area. INPATIENT DISCHARGE INSTRUCTIONS SIGNATURE PAGE MACK ALY Location:[facility] Registration Date and Time:02/19/2023 14:09 EDT Primary Care Physician: Jericho CALLEJAS, Ganga Ball, Attending Physician: Larry CALLEJAS, Barbara Rodriguez, I MACK ALY, have received the above patient education materials/instructions and have verbalized understanding. If ambulance or transport services are being used I further acknowledge being given a choice of service. ?? If you need to contact me, please call me at this number: . Patient/Gift Shop Manager Name: Patient/Gift Shop Manager Signature: Relationship to Patient: Witness Name/Signature: Date: * Larry CALLEJAS, Barbara Rodriguez: PERFORM Event Display: Discharge/Transfer Note Hospital Authored Date: Patient: ??MACK ALY ? Age:??77 Years?Sex:??Male?:??1945?? Patient Information Discharge Location: [facility] Primary Care Physician: Ganga Echavarria MD Admit Date/Time: 02/19/23 14:09 Discharge Disposition Discharge Disposition: ?? 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 _ Discharge Medications Acetaminophen (acetaminophen 325 mg oral tablet)?975?Milligram?By Mouth?3 times a day?Temperature Greater than 100.5 Allopurinol (allopurinol 300 mg oral tablet)?300?Milligram?1?tablet?By Mouth?Daily Diltiazem (diltiazem 180 mg/24 hours oral capsule, extended release)?180?Milligram?1?capsule?By Mouth?Daily GlipiZIDE (glipiZIDE 5 mg oral tablet)?5?Milligram?1?tablet?By Mouth?Daily in AM Lisinopril (lisinopril 2.5 mg oral tablet)?2.5?Milligram?1?tablet?By Mouth?Daily Melatonin (melatonin 3 mg oral tablet)?3?Milligram?By Mouth?Daily at bedtime?as needed?Insomnia Polyethylene Glycol 3350 (MiraLax Powder)?1?pack/packet?17?gram?By Mouth?Daily?as needed?Constipation Quetiapine (SEROquel 25 mg oral tablet)?12.5?Milligram?0.5?tablet?By Mouth?3 times a day?as needed?Anxiety Senna (Senna 8.6 mg oral tablet)?17.2?Milligram?2?tab(s)?By Mouth?Daily at bedtime Simethicone (simethicone 80 mg oral tablet, chewable)?80?Milligram?Chew?3 times a day?as needed?Gas Trazodone (traZODone 50 mg oral tablet)?1?tablet?By Mouth?Daily at bedtime?as needed? NEEDED FOR INSOMNIA ? Medications Started Seroquel, melatonin, bowel meds Medications Discontinued BB Doses Changed Reduced glipizide to daily (from BID) Allergies Allergies ?(Active and Proposed Allergies Only) NKA? (Severity: Unknown severity, Onset: Unknown) ? Hospital Course 77 y/o male with h/o multifactorial dementia (micro-hemorrhagic infarcts, cerebral amyloid angiopathy), CAD, HTN, A-fib, DM 2 who presents with generalized weakness and repeated falls at home (appearing to be mechanical). Hospital course complicated by delirium. ?? Delirium (R41.0) Agitation (R45.1) Dementia (F03.90) Cerebral amyloid angiopathy (I68.0) Metabolic work-up benign: CBC, CMP, TSH, CTH, no SIRS.? Appears to have hyperactive delirium, potentially in setting of hospitalization ?? Geriatric consulted and adjusted meds He is more calm and cooperative now PT recommended rehab ?? He is being discharged to [facility] in a [facility] condition ? Plan: Will continue seroquel Would recommend non pharmacologic delirium precautions ? History of fall (Z91.81): appears mechanical. PT rec rehab. ? CHRONIC MEDICAL CONDITIONS: Hypertension (I10): Continue lisinopril and CCB Discontinued metoprolol as 3 med will lower BP ?? ENEDINA (obstructive sleep apnea) (G47.33): CPAP ordered Atrial fibrillation (I48.91): Continue diltiazem HR stable ?? Discontinued mtoprolol (change to XL) ?? History of gout (Z87.39): Continue allopurinol ? DM2: Will continue??glipizide ? Code Status: Full ? Diet: Dys 3 with thin liq Regular ? Objective ? Discharge Planning:? Vital Signs?? Temperature: 97.6 DegF (02/28/23 06:30:00) Temperature Route: Oral (02/28/23 06:30:00) Pulse Rate:??93 bpm??High (02/28/23 09:23:00) Respiratory Rate: 16 br/min (02/28/23 10:24:00) Systolic Blood Pressure: 123 mm Hg (02/28/23 09:23:00) Systolic Blood Pressure: 123 mm Hg (02/28/23 09:23:00) Diastolic Blood Pressure: 58 mm Hg (02/28/23 09:23:00) Diastolic Blood Pressure: 58 mm Hg (02/28/23 09:23:00) Blood pressure sites: Arm, right (02/28/23 06:30:00) Mean Arterial Pressure: 93 mm Hg (02/28/23 06:30:00) Pulse Pressure: 63 mm Hg (02/28/23 06:30:00) Oxygen Saturation: 95 % (02/28/23 06:30:00) Mode of Delivery (Oxygen): Room air (02/28/23 06:30:00) Early Warning Score: 4 (02/28/23 12:35:24) ? . Physical Exam Awake, alert, not oriented Lungs: Clear to auscultation bilateral, no wheezing no rales Heart: Regular rate and rhythm, no murmur, no rub or gallop Abdomen: Soft, nontender, nondistended; Bowel sounds present Extremity: No edema cyanosis clubbing Neurological: No focal deficit Psychiatric: Normal mood and affect Pending Results Add On Lab Order ordered on 02/20/2023 Add On Lab Order ordered on 02/22/2023 Add On Lab Order ordered on 02/22/2023 Follow-Up Appointments Added Follow Up ?Time Frame ?Comments Ganga Echavarria MD?If discharged from rehab Ganga Echavarria MD Home Health Face to Face ^HomeHealth[facility]F Results Discharge Labs BLOOD COUNT & DIFF WBC 9.9 k/mm3 ()?? 02/20/2023 00:14 RBC 4.82 m/mm3 ()?? 02/20/2023 00:14 Hgb 15.9 Gm/dL ()?? 02/20/2023 00:14 Hct 46.0 % ()?? 02/20/2023 00:14 MCV 95.4 femtoliters (High)?? 02/20/2023 00:14 MCH 33.0 pg ()?? 02/20/2023 00:14 MCHC 34.6 g/dL ()?? 02/20/2023 00:14 Platelet Count 195 k/mm3 ()?? 02/20/2023 00:14 RDW-SD 51.6 femtoliters (High)?? 02/20/2023 00:14 MPV 9.5 femtoliters ()?? 02/20/2023 00:14 Nucleated RBC (Automated) 0.0 #/100 WBC'S ()?? 02/20/2023 00:14 Abs. NRBC 0.0 k/mm3 ()?? 02/20/2023 00:14 Abs. Neut 7.1 k/mm3 (High)?? 02/20/2023 00:14 Abs. Lymph 1.6 k/mm3 ()?? 02/20/2023 00:14 Abs. [place] 0.9 k/mm3 ()?? 02/20/2023 00:14 Abs. Eo 0.2 k/mm3 ()?? 02/20/2023 00:14 Abs. Baso 0.1 k/mm3 ()?? 02/20/2023 00:14 Neut % 71.8 % ()?? 02/20/2023 00:14 Lymph % 15.8 % ()?? 02/20/2023 00:14 [place] % 8.6 % ()?? 02/20/2023 00:14 Eos % 1.8 % ()?? 02/20/2023 00:14 Baso % 0.8 % ()?? 02/20/2023 00:14 Imm Gran 1.2 % ()?? 02/20/2023 00:14 Abs. Imm Gran 0.1 k/mm3 ()?? 02/20/2023 00:14 ?? CHEM GENERAL Sodium 139 mmol/L ()?? 02/22/2023 10:10 Potassium 4.4 mmol/L ()?? 02/22/2023 10:10 Chloride 104 mmol/L ()?? 02/22/2023 10:10 Bicarbonate Level 23 mmol/L ()?? 02/22/2023 10:10 Anion Gap 12 ()?? 02/22/2023 10:10 Glucose Level 210 mg/dL (High)?? 02/22/2023 10:10 Glucose, POC 192 mg/dL (High)?? 02/28/2023 12:09 Hemoglobin A1C (Monitoring) 7.9 % (High)?? 02/22/2023 19:11 BUN 33 mg/dL (High)?? 02/22/2023 10:10 Creatinine-Blood 1.4 mg/dL (High)?? 02/22/2023 10:10 Estimated GFR Creatinine 53 ML/MIN/1.73 M2 ()?? 02/22/2023 10:10 Calcium 9.9 mg/dL ()?? 02/20/2023 00:14 Phosphorus 3.6 mg/dL ()?? 02/20/2023 00:14 Magnesium 1.9 mg/dL ()?? 02/22/2023 10:10 Protein, Total 5.6 Gm/dL (Low)?? 02/22/2023 10:10 Albumin 4.0 Gm/dL ()?? 02/22/2023 10:10 Alkaline Phosphatase 110 units/L ()?? 02/22/2023 10:10 AST (SGOT) 25 units/L ()?? 02/22/2023 10:10 ALT (SGPT) 24 units/L ()?? 02/22/2023 10:10 Bilirubin, Total 1.0 mg/dL ()?? 02/22/2023 10:10 Bilirubin, Direct 0.3 mg/dL ()?? 02/22/2023 10:10 Bilirubin, Indirect 0.7 mg/dL ()?? 02/22/2023 10:10 Vitamin B12 Level 858 pg/mL ()?? 02/20/2023 00:14 Folic Acid Level HEMOLYZED ng/mL ()?? 02/20/2023 00:14 ?? URINE OTHER Est Creatinine Clearance 47.80 mL/min ()?? 02/22/2023 11:28 ? VIROLOGY COVID-19 by RT-PCR NEGATIVE ()?? 02/18/2023 03:47 ? 35 minutes spent on discharge * Isabel Ocampo RN, V: VERIFY, PERFORM, SIGN Event Display: Case Management Discharge Plan Authored Date: [id number] Patient: MACK ALY Age: 77 years Sex: Male : 1945 Associated Diagnoses: None Author: Isabel Ocampo RN, V Discharge Plan Case Management Discharge Plan : Case Management Discharge Plan Data 02/28/2023 9:21 EDT Discharge Level of Care at Discharge [facility] facility Discharge Nursing Homes/Rehab Facilities Care [address] [facility] (Modified) Discharge Transportation Arranged [facility] [address] [place] [address] Discharge Arranged Transport Date/Time 03/01/2023 10:00 (Modified) Mode of Transportation Arranged Ambulance Name of Agency #1 [facility] (Modified) Agency Night Nurse #1 Leslye Rodriguez clinical liaisonLAMINE (Modified) Service Categories #1 Occupational Therapy, Physical Therapy, Half-Way Service Start Date and Time #1 03/01/2023 10:00 Service Comments #1 Your hospitalist has determined you are cleared to transfer to [facility] to continue your rehabilitation & recovery. You will be transported there by ambulance. Your /health care proxy Cyn is aware of & agrees with this plan. (Modified) * Isabel Ocampo RN, V: SIGN, PERFORM, VERIFY Event Display: Case Management Discharge Plan Authored Date: [id number] Patient: MACK ALY Age: 77 years Sex: Male : 1945 Associated Diagnoses: None Author: Isabel Ocampo RN, V Discharge Plan Case Management Discharge Plan : Case Management Discharge Plan Data 02/28/2023 9:21 EDT Discharge Level of Care at Discharge [facility] facility Discharge Nursing Homes/Rehab Facilities [facility] Discharge Transportation Arranged [facility] Discharge Arranged Transport Date/Time 02/28/2023 12:00 Mode of Transportation Arranged Ambulance Name of Agency #1 In [facility] (In Error) Agency Night Nurse #1 Leslye Rodriguez, clinical liaison, SALEEMOHAndrew Service Categories #1 Occupational Therapy, Physical Therapy, Half-Way Service Comments #1 Your hospitalist has determined you are cleared to transfer to [facility] today to continue your rehabilitation & recovery. You will be transported there by ambulance. Your /health care proxy Cyn is aware of & agrees with this plan. CT Head WO contrast * BHSPowerscribe , CIS S: TRANSCCHRISTIANO Muñoz MD, Ahmed: MARLI Meier MD, Melissa: VERIFY Event Display: Result: Authored Date: [id number] CT Head/Brain W/O Contrast INDICATION: Hx of Present Illness: just discharged after a fall yesterday. returns due to decreasedmobility at home. says hes been more agressive with family at home and increased difficulty moving around.; Reason: Trauma; Clinical Question(s): Hematoma; Order Comment: TECHNIQUE: Noncontrast head CT using axial technique and reconstructed in axial and coronal planes.Iterative reconstruction techniques are used to optimize dose and image quality. CTDIvol Head: 47.80 mGy, DLP Head: 772 mGy*cm. COMPARISON: 02/16/2023. FINDINGS: Steward Dishwasher view findings, lines and tubes: None. BRAIN AND EXTRA-AXIAL SPACES: No parenchymal hemorrhage, midline shift, or mass effect. Ross-white matter differentiation is wellpreserved. No acute infarct. Negative insular ribbon sign. Atherosclerotic vascular calcification of the carotid arteries but negative hyperdense vessel sign. Moderate prominence of the ventricles and sulci consistent with parenchymal volume loss. Moderate low-density white matter changes. No subarachnoid hemorrhage. No subdural or epidural collection. CALVARIUM, SKULL BASE, AND SOFT TISSUES: No fractures or suspicious bony lesions. The paranasal sinuses and mastoid air cells are clear. Status-post bilateral lens extraction. No significant change in size of a small left supraorbital hematoma. IMPRESSION: No acute intracranial pathology. I have personally reviewed the images and I agree with this report. WSN: [id number] Ordering Physician: Danny Arriola Dictated By: Jensen Muñoz MD Dictated Date/Time: 02/18/23 6:07 am Reviewed By: Melissa Meier MD Signed By: Melissa Meier MD Signed Date/Time: 02/18/23 6:12 am Transcribed By: CSMaria Isabel Transcribed Date/Time: 02/18/23 5:26 am Patient Care team information Care Team Personnel Name: Adrian De Leon RN Position: [facility] RN Member Role: Primary Care Nurse Name: Adelita Rizzo RN Position: [facility] ED RN W/OE and Tasks Member Role: Primary Care Nurse Name: Antoni Garcia RN Position: [facility] RN Member Role: Primary Care Nurse Name: Shaji North RN Position: [facility] RN Member Role: Primary Care Nurse Name: Jennifer Soria RN Position: [facility] RN Member Role: Primary Care Nurse Name: Ganga Echavarria MD Position: [facility] Physician - Primary Care Member Role: PCP Address: Address: [address] [place] [address] Name: *Agata COREY Attending Position: [facility] ED Medicine MD Name: Adelita Aguero Position: [facility] ED OA Charge Member Role: ED Associate Name: Farhana Colin RN Position: [facility] ED RN W/OE and Tasks Member Role: Patient Care Provider Name: Luis Sanford Position: [facility] ED TA [facility] Member Role: Patient Care Provider Care Team Related Persons Name: ALY CYN Address: [place] [address]
--- OUTSIDE RECORDS SUMMARY | 2023-06-17 04:29 | XMS_ITS | Continuity of Care Document ---
Author Name Unknown Organization [facility] Address [address] [place] [id number]- Care Team Providers Care Electric Motor Winder Name Role Phone Selma MARTINS, Tiarra Rodriguez Primary Care Physician Encounter [facility] [place] [place] Date(s): 04/23/21 - 05/23/[address] [address] Attending Physician: Marquez Graff Admitting Physician: Marquez Graff Referring Physician: AdmtrMarquez Allergies, Adverse Reactions, Alerts Substance Reaction Severity [...] 05/08/20 11:09:00 EDT, Route to Pharmacy Electronically, [facility], 183, cm, 05/08/20 7:48:00 EDT, [...] By Mouth, 2 times a day, # 120 tablet, Refills 6, Tot. Refills 6, Maintenance, 04/28/21 12:08:00 EDT, Route to Pharmacy Electronically, [facility], 183, cm, 07/28/20 15:00:00 EST, Height, 91.2, kg, 05/06/20 16:31:00 EDTJovon Start Date: 04/28/21 Stop Date: 06/22/22 Status: Ordered Social History Social History Type Response Smoking Status Never (less than 100 in lifetime) entered on: 07/28/20 Sex
--- OUTSIDE RECORDS SUMMARY | 2023-06-17 04:29 | XMS_ITS | Continuity of Care Document ---
Author Name Unknown Organization [facility] Address [address] [place] [address]- Care Team Providers Care Marketing And Public Relations Manager Name Role Phone Selma MARTINS, Tiarra Rodriguez Primary Care Physician [id number] Date(s): 10/27/20 - 11/26/[address] [address] Attending Physician: Marquez Graff Admitting Physician: [...] 05/08/20 11:09:00 EDT, Route to Pharmacy Electronically, [facility], 183, cm, 05/08/20 7:48:00 [...] 05/08/20 11:09:00 EDT, Route to Pharmacy Electronically, [facility], 183, cm, 05/08/20 7:48:00 EDT, Height, 91.2, kg, 05/06/20 16:31:00 EDT, Dry... Start Date: 05/08/20 Status: Ordered Social History Social History Type Response Smoking Status Never (less than 100 in lifetime) entered on: 07/28/20 Sex
--- OUTSIDE RECORDS SUMMARY | 2023-06-17 04:29 | XMS_ITS | Continuity of Care Document ---
Author Name Unknown Organization [facility] ter Address [address] [place] [address]- Care Team Providers Care Chief Executive Or Managing Director Name Role Phone Bert CALLEJAS, Luma Dixon Primary Care Physician Encounter [facility] [place] Date(s): 05/08/20 - 06/07/[address] [address]- [facility] Attending Physician: Not on Staff, Attending MD Admitting Physician: Not on Staff, Admitting MD Referring Physician: Not on Staff, Referring [...] 05/08/20 11:09:00 EDT, Route to Pharmacy Electronically, [facility], 183, cm, 05/08/20 7:48:00 [...] 05/08/20 11:09:00 EDT, Route to Pharmacy Electronically, [facility], 183, cm, 05/08/20 7:48:00 EDT, Height, 91.2, kg, 05/06/20 16:31:00 EDT, Dry... Start Date: 05/08/20 Status: Ordered
--- OUTSIDE RECORDS SUMMARY | 2023-06-17 04:29 | XMS_ITS | Continuity of Care Document ---
Author Name Unknown Organization [facility] Address [address] [place] [address]- Care Team Providers Care Controls Technician Name Role Phone Selma MARTINS, Tiarra Rodriguez Primary Care Physician En[facility] [place] Date(s): 08/18/20 - 08/25/[address] [address] Attending Physician: Christopher CALLEJAS, Esmer Delcid Admitting Physician: Esmer Whiet MD Allergies, Adverse Reactions, Alerts Substance Reaction [...] 05/08/20 11:09:00 EDT, Route to Pharmacy Electronically, [facility], 183, cm, 05/08/20 7:48:00 [...] 05/08/20 11:09:00 EDT, Route to Pharmacy Electronically, [facility], 183, cm, 05/08/20 7:48:00 EDT, Height, 91.2, kg, 05/06/20 16:31:00 EDT, Dry... Start Date: 05/08/20 Status: Ordered Social History Social History Type Response Smoking Status Never (less than 100 in lifetime) entered on: 07/28/20 Sex
--- OUTSIDE RECORDS SUMMARY | 2023-06-17 04:29 | XMS_ITS | Continuity of Care Document ---
Author Name Unknown Organization [facility] Address [address] [place] [address]- Care Team Providers Care Supervisor Burling And Joining Name Role Phone Tiarra Terry Primary Care Physician ( [phone] Encounter [facility] [place] Date(s): 07/28/20 - 08/27/20 [facility] [address] [place] [id number] Attending Physician: Marquez Graff Admitting [...] 05/08/20 11:09:00 EDT, Route to Pharmacy Electronically, [facility], 183, cm, 05/08/20 7:48:00 [...] 05/08/20 11:09:00 EDT, Route to Pharmacy Electronically, [facility], 183, cm, 05/08/20 7:48:00 EDT, Height, 91.2, kg, 05/06/20 16:31:00 EDT, Dry... Start Date: 05/08/20 Status: Ordered Social History Social History Type Response Smoking Status Never (less than 100 in lifetime) entered on: 07/28/20 Sex
--- OUTSIDE RECORDS SUMMARY | 2023-06-17 04:29 | XMS_ITS | Continuity of Care Document ---
Author Name Unknown Organization [facility] Address [address], [address], [address] [place] [id number]- Care Team Providers Care Science Technician Name Role Phone Bert CALLEJAS, Luma Dixon Primary Care Physician En[place] [facility] [place] Date(s): 11/08/19 - 11/18/19 [facility] [address], [address] Floor, [address] [place] [address]- [facility] Attending Physician: Admtr, Ar8 Admitting Physician: Admtr, Ar8 Referring Physician: Admtr, Ar8 Allergies, Adverse Reactions, Alerts Substance Reaction Severity Status NKA Active
--- OUTSIDE RECORDS SUMMARY | 2023-06-17 04:30 | XMS_ITS | Continuity of Care Document ---
Author Name Unknown Organization [facility] Address [address] [place] [address]- Care Team Providers Care Consultant Name Role Phone Selma MARTINS, Tiarra Rodriguez Primary Care Physician ( [phone] Encounter [facility] [place] Date(s): 09/17/20 - 09/24/[address] [address] Attending Physician: Christopher CALLEJAS, Esmer Delcid Admitting Physician: Esmer White MD Allergies, Adverse Reactions, Alerts Substance Reaction [...] 05/08/20 11:09:00 EDT, Route to Pharmacy Electronically, [facility], 183, cm, 05/08/20 [...] 05/08/20 11:09:00 EDT, Route to Pharmacy Electronically, [facility], 183, cm, 05/08/20 7:48:00 EDT, Height, 91.2, kg, 05/06/20 16:31:00 EDT, Dry... Start Date: 05/08/20 Status: Ordered Social History Social History Type Response Smoking Status Never (less than 100 in lifetime) entered on: 07/28/20 Sex
--- OUTSIDE RECORDS SUMMARY | 2023-06-17 04:30 | XMS_ITS | Continuity of Care Document ---
Author Name Unknown Organization [facility] Address [address] [place] [address]- Care Team Providers Care Logistics Vice President Name Role Phone Tiarra Terry Primary Care Physician Encounter [facility] [place] Date(s): 09/24/20 - 10/24/20 [facility] [address] [place] [address] [address] Attending Physician: Marquez Graff Admitting [...] 05/08/20 11:09:00 EDT, Route to Pharmacy Electronically, [facility], 183, cm, 05/08/20 7:48:00 [...] 05/08/20 11:09:00 EDT, Route to Pharmacy Electronically, [facility], 183, cm, 05/08/20 7:48:00 EDT, Height, 91.2, kg, 05/06/20 16:31:00 EDT, Dry... Start Date: 05/08/20 Status: Ordered Social History Social History Type Response Smoking Status Never (less than 100 in lifetime) entered on: 07/28/20 Sex
--- OUTSIDE RECORDS SUMMARY | 2023-06-17 04:30 | XMS_ITS | Continuity of Care Document ---
Author Name Unknown Organization [facility] Address [address] [place] [address]- Care Team Providers Care Automatic Transmission Mechanic Name Role Phone Tiarra Terry Primary Care Physician Encounter [facility] [place] Date(s): 03/16/21 - 05/23/[address] [address] Attending Physician: Christopher CALLEJAS, Esmer Delcid Admitting Physician: Esmer White MD Referring Physician: Tiarra Terry Allergies, Adverse Reactions, Alerts Substance Reaction Severity [...] 05/08/20 11:09:00 EDT, Route to Pharmacy Electronically, [facility], 183, cm, 05/08/20 7:48:00 EDT, [...] 04/28/21 12:08:00 EDT, Route to Pharmacy Electronically, [facility], 183, cm, 07/28/20 15:00:00 EST, Height, 91.2, kg, 05/06/20 16:31:00 EDTYovanny. Start Date: 04/28/21 Stop Date: 06/22/22 Status: Ordered Social History Social History Type Response Smoking Status Never (less than 100 in lifetime) entered on: 07/28/20 Sex
--- OUTSIDE RECORDS SUMMARY | 2023-06-17 04:30 | XMS_ITS | Continuity of Care Document ---
Author Name Unknown Organization [facility] ter Address [address] [place] [address]- Care Team Providers Care Flattening Machine Operator Name Role Phone Bert CALLEJAS, Luma Dixon Primary Care Physician Encounter [facility] Date(s): 09/24/19 - 09/24/[address] [address]- [facility] Attending Physician: Not on Staff, Attending MD Allergies, Adverse Reactions, Alerts Substance Reaction Severity Status NKA Active
--- OUTSIDE RECORDS SUMMARY | 2023-06-17 04:30 | XMS_ITS | Continuity of Care Document ---
Author Name Unknown Organization [facility] ter Address [address] [place] [id number] Care Team Providers Care Professor Of Physical Education Name Role Phone Enmanuel CALLEJAS, Olga Pierce Primary Care Physician [phone] [place] [facility] [place]03[place]23 - 03/04/[address] [address]- Encounter Diagnosis Fall(Final) - 03/03/23 Altered mental status(Final) - 03/03/23 Atrial fibrillation with RVR(Final) - 03/03/23 Discharge Disposition: A-Transfer SNF Attending Physician: Jag To MD Admitting Physician: Sierra Ying MD Referring [...] mg, By Mouth, 3 times a day, PRN, Refills 0, Maintenance, FEVER >100.5, 02/28/23 13:10:00 EDT, Partial fill upon patient request if the prescription is for a schedule II opioid drug. Start Date: 02/28/23 Status: Ordered allopurinol 300 mg oral tablet 300 mg, 1, tablet, By Mouth, Daily, Refills 0, Maintenance, 02/18/20 14:06:00 EDT Start Date: 02/18/20 Status: Ordered bisacodyl 10 mg rectal suppository 1 supp = 10 mg, Rectally, Every 24 hours, PRN as needed for constipation, 0 Refills, Maintenance, 03/03/23 7:20:00 EDT, Partial fill upon patient request if the prescription is for a schedule II opioid drug. Start Date: 03/03/23 Status: Ordered diltiazem 180 mg/24 hours oral capsule, extended release 180 mg, 1, capsule, By Mouth, Daily, Refills 0, Maintenance, 02/18/20 14:06:00 EDT Start Date: 02/18/20 Status: Ordered diltiazem 180 mg/24 hours oral capsule, extended release 180 mg, CD Capsule, By Mouth, 03/04/23 9:00:00 EDT Start Date: 03/04/23 Stop Date: 03/04/23 Status: Completed Fleet Enema 19 gm-7 gm rectal enema 118 mL, Rectally, Once, PRN as needed for constipation, Use only if Bisacodyl is ineffective, # 118mL, 0 Refills, Maintenance, 03/03/23 7:23:00 EDT, Enema, Partial fill upon patient request if the prescription is for a schedule II opioid drug. Start Date: 03/03/23 Status: Ordered glipiZIDE 5 mg oral tablet 5 mg, 1, tablet, By Mouth, Daily in AM, Refills 0, Maintenance, 02/28/23 13:09:00 EDT, Partial fillupon patient request if the prescription is for a schedule II opioid drug. Start Date: 02/28/23 Status: Ordered lactulose 10 gm/15 ml oral syrup 30 mL = 20 Gm, By Mouth, Daily, 0 Refills, Maintenance, 03/03/23 7:27:00 EDT, Partial fill upon patient request if the prescription is for a schedule II opioid drug. Start Date: 03/03/23 Status: Ordered melatonin 3 mg oral tablet = 3 mg, By Mouth, Daily at bedtime, PRN Insomnia, 0 Refills, Maintenance, 02/28/23 13:10:00 EDT, Tablet, Partial fill upon patient request if the prescription is for a schedule II opioid drug. Start Date: 02/28/23 Status: Ordered metoprolol 50 mg oral tablet, extended release 50 mg, XL Tablet, By Mouth, 03/04/23 9:00:00 EDT Start Date: 03/04/23 Stop Date: 03/04/23 Status: Completed metoprolol 50 mg oral tablet, extended release 50 mg, 1, tablet, By Mouth, Daily, Refills 0, Maintenance, 03/01/23 7:36:00 EDT, Partial fill upon patient request if the prescription is for a schedule II opioid drug. Start Date: 03/01/23 Status: Ordered MiraLax Powder 1 pack/packet = 17 Gm, By Mouth, Daily, 0 Refills, Maintenance, 02/28/23 13:10:00 EDT, Powder, Partial fill upon patient request if the prescription is for a schedule II opioid drug. Start Date: 02/28/23 Status: Ordered Senna 8.6 mg oral tablet 8.6 mg, 1, tablet, By Mouth, Daily, PRN, Refills 0, Maintenance, as needed for constipation, 02/28/23 13:10:00 EDT, Tablet, Partial fill upon patient request if the prescription is for a schedule II opioid drug. Start Date: 02/28/23 Status: Ordered Senna 8.6 mg oral tablet 17.2 mg, 2, tablet, By Mouth, Daily at bedtime, Refills 0, Maintenance, 03/03/23 7:30:00 EDT, Partial fill upon patient request if the prescription is for a schedule II opioid drug. Start Date: 03/03/23 Status: Ordered SEROquel 25 mg oral tablet 12.5 mg, 0.5, tablet, By Mouth, 3 times a day, PRN, Refills 0, Maintenance, Anxiety, 02/28/23 13:10:00 EDT, Partial fill upon patient request if the prescription is for a schedule II opioid drug. Start Date: 02/28/23 Status: Ordered simethicone 80 mg oral tablet, chewable 80 mg, 1, tablet, Chew, Every 8 hours, PRN, Refills 0, Maintenance, Gas, 02/28/23 13:10:00 EDT, Partial fill upon patient request if the prescription is for a schedule II opioid drug. Start Date: 02/28/23 Status: Ordered traZODone 50 mg oral tablet 50 mg, 1, tablet, By Mouth, Daily at bedtime, PRN, Not on current paper chart, Maintenance, Insomnia, 03/03/23 7:33:00 EDT, Partial fill upon patient request if the prescription is for a schedule II opioid drug. Start Date: 03/03/23 Status: Ordered Problem List Condition Confirmation Course Effective Dates Status Health St atus Informant Atrial fibrillation Confirmed Active Cataract Confirmed Active Chronic kidney disease (CKD), stage III (moderate) Confirmed Active Dementia Confirmed Active Gout Confirmed Active Hereditary cerebral amyloid angiopathy Confirmed Active History of fall Confirmed Active HTN (hypertension) Confirmed Active Occasional tremors Confirmed Active ENEDINA (obstructive sleep apnea) Confirmed Active Periorbital hematoma of left eye Confirmed Active T2DM (type 2 diabetes mellitus) Confirmed Active Results Orders for Microbiology Reports Name Date Blood Culture 03/03/23 Blood Culture #2 03/03/23 Microbiology Reports TEST:Blood Culture, Second Order STATUS:Unauthenticated BODY SITE: SOURCE:Blood COLLECTED DATE/TIME:03/03/23 6:26 AM Blood Culture, Second Order SPECIMEN DESCRIPTION : BLOOD LHE SPECIAL REQUESTS : NONE CULTURE : NO GROWTH AFTER 24 HOURS REPORT STATUS : PRELIMINARY REPORT TEST:Blood Culture STATUS:Unauthenticated BODY SITE: SOURCE:Blood COLLECTED DATE/TIME:03/03/23 4:20 AM Blood Culture SPECIMEN DESCRIPTION : BLOOD RAC SPECIAL REQUESTS : NONE CULTURE : NO GROWTH AFTER 24 HOURS REPORT STATUS : PRELIMINARY REPORT Radiology Reports (Most Recent Ten) * Exam Date Time Procedure Performing Provider Status 03/03/23 7:11 AM Wrist Comp Min 3 Views Right Mervat Johansen; Auth (Verified) Notes: (Wrist Comp Min 3 Views Right) Reason For Exam: Trauma RESULT: Wrist Comp Min 3 Views Right Wrist Comp Min 3 Views Right HX OF PRESENT ILLNESS: coming from SNF, unwitnessed fall, multiple skin tears, bruising to L occipital, grimace with right arm movement and abd palpation; Reason: Trauma; Clinical Question(s): Fracture COMPARISON: None. FINDINGS: No fracture or dislocation. Mild hypertrophy of the base of the fifth metacarpal. Moderate degenerative changes of the hand. Normal soft tissues. Vascular calcifications. IMPRESSION: No acute fracture. I have personally reviewed the images and I agree with this report. WSN: [id number] Ordering Physician: Iva Quintero Dictated By: Di Ingram MD Dictated Date/Time: 03/03/23 9:47 am Reviewed By: Terry Clark MD, V Signed By: Terry Clark MD, V Signed Date/Time: 03/03/23 9:52 am Transcribed By: MIGDALIA Transcribed Date/Time: 03/03/23 8:46 am * Exam Date Time Procedure Performing Provider Status 03/03/23 7:11 AM Elbow Min 3 Views Right Juve Johansenline; Auth (Verified) Notes: (Elbow Min 3 Views Right) Reason For Exam: Trauma RESULT: Elbow Min 3 Views Right Elbow Min 3 Views Right, 3 views HX OF PRESENT ILLNESS: coming from SNF, unwitnessed fall, multiple skin tears, bruising to L occipital, grimace with right arm movement and abd palpation; Reason: Trauma; Clinical Question(s): Fracture COMPARISON: None. FINDINGS: No fracture or dislocation. Moderate degenerative changes. No joint effusion. IMPRESSION: No acute fracture. I have personally reviewed the images and I agree with this report. WSN: [id number] Ordering Physician: Iva Quintero Dictated By: Di Ingram MD Dictated Date/Time: 03/03/23 8:53 am Reviewed By: Terry Clark MD, V Signed By: Terry Clark MD, V Signed Date/Time: 03/03/23 8:58 am Transcribed By: MIGDALIA Transcribed Date/Time: 03/03/23 8:42 am * Exam Date Time Procedure Performing Provider Status 03/03/23 7:11 AM Elbow Min 3 Views Left Kalli Johansen ueline; Auth (Verified) Notes: (Elbow Min 3 Views Left) Reason For Exam: Trauma RESULT: Elbow Min 3 Views Left Elbow Min 3 Views Left, 3 views HX OF PRESENT ILLNESS: coming from SNF, unwitnessed fall, multiple skin tears, bruising to L occipital, grimace with right arm movement and abd palpation; Reason: Trauma; Clinical Question(s): Fracture COMPARISON: None. FINDINGS: No fracture or dislocation. Moderate degenerative changes. No joint effusion. IMPRESSION: No acute fracture. I have personally reviewed the images and I agree with this report. WSN: [id number] Ordering Physician: Iva Quintero Dictated By: Di Ingram MD Dictated Date/Time: 03/03/23 8:52 am Reviewed By: Terry Clark MD, V Signed By: Terry Clark MD, V Signed Date/Time: 03/03/23 8:57 am Transcribed By: MIGDALIA Transcribed Date/Time: 03/03/23 8:42 am * Exam Date Time Procedure Performing Provider Status 03/03/23 7:11 AM Wrist Comp Min 3 Views Left Mervat Johansen; Auth (Verified) Notes: (Wrist Comp Min 3 Views Left) Reason For Exam: Trauma RESULT: Wrist Comp Min 3 Views Left Wrist Comp Min 3 Views Left HX OF PRESENT ILLNESS: coming from SNF, unwitnessed fall, multiple skin tears, bruising to L occipital, grimace with right arm movement and abd palpation; Reason: Trauma; Clinical Question(s): Fracture COMPARISON: None. FINDINGS: No fracture or dislocation. No arthritic change. Normal carpal configuration. Intact radial and ulnar styloid processes. Normal soft tissues. Moderate arterial calcifications. IMPRESSION: No acute fracture or dislocation is seen involving the left wrist. I have personally reviewed the images and I agree with this report. WSN: [id number] Ordering Physician: Iva Quintero Dictated By: Di Ingram MD Dictated Date/Time: 03/03/23 9:00 am Reviewed By: Terry Clark MD, V Signed By: Terry Clark MD, V Signed Date/Time: 03/03/23 9:05 am Transcribed By: MIGDALIA Transcribed Date/Time: 03/03/23 8:41 am * Exam Date Time Procedure Performing Provider Status 03/03/23 5:[address] Lumbar Spine W/ Contrast Barbie Gupta; Auth (Verified) Notes: (CT Lumbar Spine W/ Contrast) Reason For Exam: Spine fracture, lumbar, traumatic;Other: RESULT: CT Lumbar Spine W/ Contrast CT Chest W/ Contrast, CT Abd/Pelvis W/ IV Contrast Only, CT Thoracic Spine W/ Contrast, CT Lumbar Spine W/ Contrast INDICATION: Hx of Present Illness: coming from SNF, unwitnessed fall, multiple skin tears, bruisingto L occipital, grimace with right arm movement and abd palpation; Reason: Chest trauma, blunt. Clinical Question(s): Aortic hilar injury. TECHNIQUE: Helical CT scan of the chest, abdomen, and pelvis with IV contrast, formatted in 3 planes. The original dataset was reconstructed with a small field of view around the thoracic and lumbar spine utilizing soft tissue and bone algorithm reconstructions in 3 planes. 100 cc of Omnipaque 300 was administered intravenously. This study was performed without oral contrast. Weight-based protocol was performed using automatic exposure control. CTDIvol Body: 14.70 mGy, DLP Body: 1111 mGy*cm. COMPARISON: Correlation with CT abdomen and pelvis 11/27/2021. FINDINGS: Case Maker view findings, lines and tubes: None. Trachea and airways: Patent without evidence of tracheal or endobronchial lesion. Lungs and pleura: Mild bibasilar atelectasis. No effusion or pneumothorax. Mediastinum and silas: No mass or hematoma. No mediastinal or hilar lymphadenopathy. No esophageal abnormality. Normal thyroid. Heart: Heart is normal in size. No pericardial effusion. Mild coronary artery calcification. Aorta: No aortic aneurysm. Pulmonary arteries: Normal caliber. No evidence of pulmonary embolism on this study performed without angiographic technique. Chest wall soft tissues: No acute abnormality. Diaphragm: Intact. Liver: Normal in attenuation and morphology. No suspicious lesion. Gallbladder: No CT evidence of gallbladder pathology. Bile ducts: No biliary ductal dilation. Spleen: Normal in size. Pancreas: No suspicious lesion or ductal dilatation. Adrenal glands: No nodule. Kidneys and ureters: RIGHT: No hydronephrosis, stone, or suspicious lesion. Mild, nonspecific perinephric fat stranding. A few scattered simple appearing cysts. No dedicated imaging follow-up required. LEFT: No hydronephrosis, stone, or suspicious lesion. Mild, nonspecific perinephric fat stranding. Unchanged ill-defined hypodense lesions in the lower pole measuring 4.5 cm medially and 2.9 cm laterally, likely benign Bosniak 2 cysts. Bladder: Bladder is under distended. Questionable wall thickening (201:192). Reproductive organs: Unremarkable. Stomach, small bowel, and large bowel: Normal caliber stomach and bowel loops. No surrounding inflammatory changes. Appendix: No evidence of acute appendicitis. Peritoneum and retroperitoneum: No ascites or pneumoperitoneum. No omental or mesenteric lesions. Lymph nodes: No enlarged lymph nodes. Blood vessels: Mild abdominal aortic vascular calcification. No aneurysm. No evidence of venous thrombosis. Abdominal and pelvic wall soft tissues: No acute abnormality. Bones: * No acute abnormality. * Mild buckling of right anterior rib 3 without fracture line, degraded by motion artifact, favoredto be an old fracture (205:53). * Healing/healed fractures of right anterior ribs 8 and 9 (201:98, 104) and left rib 10 (201:12). * Old fracture of the base of the right fifth metacarpal. Please refer to dedicated right wrist radiograph. * Moderate degenerative changes of the shoulders. Moderate degenerative changes of the sacroiliac joints. Thoracic and lumbar spine: No acute fracture or traumatic malalignment. Mild chronic height loss of T7 and T8. Moderate, multilevel degenerative changes of the visualized spine. Multilevel disc bulging especially L4-L5 with moderate canal stenosis and severe neuroforaminal narrowing bilaterally at that level. IMPRESSION: No acute traumatic injury of the chest, abdomen, pelvis, thoracic spine, and lumbar spine. Questionable wall thickening of an underdistended bladder. Please correlate with urinalysis. Results were relayed by [employer] by Dr. Pettit to Iva Quintero DO on 03/03/2023 6:42 AM. I have personally reviewed the images and I agree with this report. WSN: [id number] Ordering Physician: Iva Quintero Dictated By: Dean Pettit MD Dictated Date/Time: 03/03/23 7:55 am Reviewed By: Johnnie Foreman MD Signed By: Johnnie Foreman MD Signed Date/Time: 03/03/23 8:00 am Transcribed By: MIGDALIA Transcribed Date/Time: 03/03/23 6:44 am * Exam Date Time Procedure Performing Provider Status 03/03/23 5:[address] Thoracic Spine W/ Contrast Barbie Gupta; Elena (Verified) Notes: (CT Thoracic Spine W/ Contrast) Reason For Exam: Spine fracture, thoracic, traumatic;Other: RESULT: CT Thoracic Spine W/ Contrast CT Chest W/ Contrast, CT Abd/Pelvis W/ IV Contrast Only, CT Thoracic Spine W/ Contrast, CT Lumbar Spine W/ Contrast INDICATION: Hx of Present Illness: coming from SNF, unwitnessed fall, multiple skin tears, bruisingto L occipital, grimace with right arm movement and abd palpation; Reason: Chest trauma, blunt. Clinical Question(s): Aortic hilar injury. TECHNIQUE: Helical CT scan of the chest, abdomen, and pelvis with IV contrast, formatted in 3 planes. The original dataset was reconstructed with a small field of view around the thoracic and lumbar spine utilizing soft tissue and bone algorithm reconstructions in 3 planes. 100 cc of Omnipaque 300 was administered intravenously. This study was performed without oral contrast. Weight-based protocol was performed using automatic exposure control. CTDIvol Body: 14.70 mGy, DLP Body: 1111 mGy*cm. COMPARISON: Correlation with CT abdomen and pelvis 11/27/2021. FINDINGS: Case Maker view findings, lines and tubes: None. Trachea and airways: Patent without evidence of tracheal or endobronchial lesion. Lungs and pleura: Mild bibasilar atelectasis. No effusion or pneumothorax. Mediastinum and silas: No mass or hematoma. No mediastinal or hilar lymphadenopathy. No esophageal abnormality. Normal thyroid. Heart: Heart is normal in size. No pericardial effusion. Mild coronary artery calcification. Aorta: No aortic aneurysm. Pulmonary arteries: Normal caliber. No evidence of pulmonary embolism on this study performed without angiographic technique. Chest wall soft tissues: No acute abnormality. Diaphragm: Intact. Liver: Normal in attenuation and morphology. No suspicious lesion. Gallbladder: No CT evidence of gallbladder pathology. Bile ducts: No biliary ductal dilation. Spleen: Normal in size. Pancreas: No suspicious lesion or ductal dilatation. Adrenal glands: No nodule. Kidneys and ureters: RIGHT: No hydronephrosis, stone, or suspicious lesion. Mild, nonspecific perinephric fat stranding. A few scattered simple appearing cysts. No dedicated imaging follow-up required. LEFT: No hydronephrosis, stone, or suspicious lesion. Mild, nonspecific perinephric fat stranding. Unchanged ill-defined hypodense lesions in the lower pole measuring 4.5 cm medially and 2.9 cm laterally, likely benign Bosniak 2 cysts. Bladder: Bladder is under distended. Questionable wall thickening (201:192). Reproductive organs: Unremarkable. Stomach, small bowel, and large bowel: Normal caliber stomach and bowel loops. No surrounding inflammatory changes. Appendix: No evidence of acute appendicitis. Peritoneum and retroperitoneum: No ascites or pneumoperitoneum. No omental or mesenteric lesions. Lymph nodes: No enlarged lymph nodes. Blood vessels: Mild abdominal aortic vascular calcification. No aneurysm. No evidence of venous thrombosis. Abdominal and pelvic wall soft tissues: No acute abnormality. Bones: * No acute abnormality. * Mild buckling of right anterior rib 3 without fracture line, degraded by motion artifact, favoredto be an old fracture (205:53). * Healing/healed fractures of right anterior ribs 8 and 9 (201:98, 104) and left rib 10 (201:12). * Old fracture of the base of the right fifth metacarpal. Please refer to dedicated right wrist radiograph. * Moderate degenerative changes of the shoulders. Moderate degenerative changes of the sacroiliac joints. Thoracic and lumbar spine: No acute fracture or traumatic malalignment. Mild chronic height loss of T7 and T8. Moderate, multilevel degenerative changes of the visualized spine. Multilevel disc bulging especially L4-L5 with moderate canal stenosis and severe neuroforaminal narrowing bilaterally at that level. IMPRESSION: No acute traumatic injury of the chest, abdomen, pelvis, thoracic spine, and lumbar spine. Questionable wall thickening of an underdistended bladder. Please correlate with urinalysis. Results were relayed by [employer] by Dr. Pettit to Iva Quintero DO on 03/03/2023 6:42 AM. I have personally reviewed the images and I agree with this report. WSN: [id number] Ordering Physician: Iva Quintero Dictated By: Dean Pettit MD Dictated Date/Time: 03/03/23 7:55 am Reviewed By: Johnnie Foreman MD Signed By: Johnnie Foreman MD Signed Date/Time: 03/03/23 8:00 am Transcribed By: MIGDALIA Transcribed Date/Time: 03/03/23 6:44 am * Exam Date Time Procedure Performing Provider Status 03/03/23 5:[address] Abd/Pelvis W/ IV Contrast Only Barbie Casper; Auth (Verified) Notes: (CT Abd/Pelvis W/ IV Contrast Only) Reason For Exam: Abd trauma, blunt;Other: RESULT: CT Abd/Pelvis W/ IV Contrast Only CT Chest W/ Contrast, CT Abd/Pelvis W/ IV Contrast Only, CT Thoracic Spine W/ Contrast, CT Lumbar Spine W/ Contrast INDICATION: Hx of Present Illness: coming from SNF, unwitnessed fall, multiple skin tears, bruisingto L occipital, grimace with right arm movement and abd palpation; Reason: Chest trauma, blunt. Clinical Question(s): Aortic hilar injury. TECHNIQUE: Helical CT scan of the chest, abdomen, and pelvis with IV contrast, formatted in 3 planes. The original dataset was reconstructed with a small field of view around the thoracic and lumbar spine utilizing soft tissue and bone algorithm reconstructions in 3 planes. 100 cc of Omnipaque 300 was administered intravenously. This study was performed without oral contrast. Weight-based protocol was performed using automatic exposure control. CTDIvol Body: 14.70 mGy, DLP Body: 1111 mGy*cm. COMPARISON: Correlation with CT abdomen and pelvis 11/27/2021. FINDINGS: Case Maker view findings, lines and tubes: None. Trachea and airways: Patent without evidence of tracheal or endobronchial lesion. Lungs and pleura: Mild bibasilar atelectasis. No effusion or pneumothorax. Mediastinum and silas: No mass or hematoma. No mediastinal or hilar lymphadenopathy. No esophageal abnormality. Normal thyroid. Heart: Heart is normal in size. No pericardial effusion. Mild coronary artery calcification. Aorta: No aortic aneurysm. Pulmonary arteries: Normal caliber. No evidence of pulmonary embolism on this study performed without angiographic technique. Chest wall soft tissues: No acute abnormality. Diaphragm: Intact. Liver: Normal in attenuation and morphology. No suspicious lesion. Gallbladder: No CT evidence of gallbladder pathology. Bile ducts: No biliary ductal dilation. Spleen: Normal in size. Pancreas: No suspicious lesion or ductal dilatation. Adrenal glands: No nodule. Kidneys and ureters: RIGHT: No hydronephrosis, stone, or suspicious lesion. Mild, nonspecific perinephric fat stranding. A few scattered simple appearing cysts. No dedicated imaging follow-up required. LEFT: No hydronephrosis, stone, or suspicious lesion. Mild, nonspecific perinephric fat stranding. Unchanged ill-defined hypodense lesions in the lower pole measuring 4.5 cm medially and 2.9 cm laterally, likely benign Bosniak 2 cysts. Bladder: Bladder is under distended. Questionable wall thickening (201:192). Reproductive organs: Unremarkable. Stomach, small bowel, and large bowel: Normal caliber stomach and bowel loops. No surrounding inflammatory changes. Appendix: No evidence of acute appendicitis. Peritoneum and retroperitoneum: No ascites or pneumoperitoneum. No omental or mesenteric lesions. Lymph nodes: No enlarged lymph nodes. Blood vessels: Mild abdominal aortic vascular calcification. No aneurysm. No evidence of venous thrombosis. Abdominal and pelvic wall soft tissues: No acute abnormality. Bones: * No acute abnormality. * Mild buckling of right anterior rib 3 without fracture line, degraded by motion artifact, favoredto be an old fracture (205:53). * Healing/healed fractures of right anterior ribs 8 and 9 (201:98, 104) and left rib 10 (201:12). * Old fracture of the base of the right fifth metacarpal. Please refer to dedicated right wrist radiograph. * Moderate degenerative changes of the shoulders. Moderate degenerative changes of the sacroiliac joints. Thoracic and lumbar spine: No acute fracture or traumatic malalignment. Mild chronic height loss of T7 and T8. Moderate, multilevel degenerative changes of the visualized spine. Multilevel disc bulging especially L4-L5 with moderate canal stenosis and severe neuroforaminal narrowing bilaterally at that level. IMPRESSION: No acute traumatic injury of the chest, abdomen, pelvis, thoracic spine, and lumbar spine. Questionable wall thickening of an underdistended bladder. Please correlate with urinalysis. Results were relayed by [facility] by Dr. Pettit to Iva Quintero DO on 03/03/2023 6:42 AM. I have personally reviewed the images and I agree with this report. WSN: [id number] Ordering Physician: Iva Quintero Dictated By: Dean Pettit MD Dictated Date/Time: 03/03/23 7:55 am Reviewed By: Johnnie Foreman MD Signed By: Johnnie Foreman MD Signed Date/Time: 03/03/23 8:00 am Transcribed By: MIGDALIA Transcribed Date/Time: 03/03/23 6:44 am * Exam Date Time Procedure Performing Provider Status 03/03/23 5:[address] Chest W/ Contrast Barbie Gupta ; Elena (Verified) Notes: (CT Chest W/ Contrast) Reason For Exam: Chest trauma, blunt;Other: RESULT: CT Chest W/ Contrast CT Chest W/ Contrast, CT Abd/Pelvis W/ IV Contrast Only, CT Thoracic Spine W/ Contrast, CT Lumbar Spine W/ Contrast INDICATION: Hx of Present Illness: coming from SNF, unwitnessed fall, multiple skin tears, bruisingto L occipital, grimace with right arm movement and abd palpation; Reason: Chest trauma, blunt. Clinical Question(s): Aortic hilar injury. TECHNIQUE: Helical CT scan of the chest, abdomen, and pelvis with IV contrast, formatted in 3 planes. The original dataset was reconstructed with a small field of view around the thoracic and lumbar spine utilizing soft tissue and bone algorithm reconstructions in 3 planes. 100 cc of Omnipaque 300 was administered intravenously. This study was performed without oral contrast. Weight-based protocol was performed using automatic exposure control. CTDIvol Body: 14.70 mGy, DLP Body: 1111 mGy*cm. COMPARISON: Correlation with CT abdomen and pelvis 11/27/2021. FINDINGS: Case Maker view findings, lines and tubes: None. Trachea and airways: Patent without evidence of tracheal or endobronchial lesion. Lungs and pleura: Mild bibasilar atelectasis. No effusion or pneumothorax. Mediastinum and silas: No mass or hematoma. No mediastinal or hilar lymphadenopathy. No esophageal abnormality. Normal thyroid. Heart: Heart is normal in size. No pericardial effusion. Mild coronary artery calcification. Aorta: No aortic aneurysm. Pulmonary arteries: Normal caliber. No evidence of pulmonary embolism on this study performed without angiographic technique. Chest wall soft tissues: No acute abnormality. Diaphragm: Intact. Liver: Normal in attenuation and morphology. No suspicious lesion. Gallbladder: No CT evidence of gallbladder pathology. Bile ducts: No biliary ductal dilation. Spleen: Normal in size. Pancreas: No suspicious lesion or ductal dilatation. Adrenal glands: No nodule. Kidneys and ureters: RIGHT: No hydronephrosis, stone, or suspicious lesion. Mild, nonspecific perinephric fat stranding. A few scattered simple appearing cysts. No dedicated imaging follow-up required. LEFT: No hydronephrosis, stone, or suspicious lesion. Mild, nonspecific perinephric fat stranding. Unchanged ill-defined hypodense lesions in the lower pole measuring 4.5 cm medially and 2.9 cm laterally, likely benign Bosniak 2 cysts. Bladder: Bladder is under distended. Questionable wall thickening (201:192). Reproductive organs: Unremarkable. Stomach, small bowel, and large bowel: Normal caliber stomach and bowel loops. No surrounding inflammatory changes. Appendix: No evidence of acute appendicitis. Peritoneum and retroperitoneum: No ascites or pneumoperitoneum. No omental or mesenteric lesions. Lymph nodes: No enlarged lymph nodes. Blood vessels: Mild abdominal aortic vascular calcification. No aneurysm. No evidence of venous thrombosis. Abdominal and pelvic wall soft tissues: No acute abnormality. Bones: * No acute abnormality. * Mild buckling of right anterior rib 3 without fracture line, degraded by motion artifact, favoredto be an old fracture (205:53). * Healing/healed fractures of right anterior ribs 8 and 9 (201:98, 104) and left rib 10 (201:12). * Old fracture of the base of the right fifth metacarpal. Please refer to dedicated right wrist radiograph. * Moderate degenerative changes of the shoulders. Moderate degenerative changes of the sacroiliac joints. Thoracic and lumbar spine: No acute fracture or traumatic malalignment. Mild chronic height loss of T7 and T8. Moderate, multilevel degenerative changes of the visualized spine. Multilevel disc bulging especially L4-L5 with moderate canal stenosis and severe neuroforaminal narrowing bilaterally at that level. IMPRESSION: No acute traumatic injury of the chest, abdomen, pelvis, thoracic spine, and lumbar spine. Questionable wall thickening of an underdistended bladder. Please correlate with urinalysis. Results were relayed by [facility] by Dr. Pettit to Iva Quintero DO on 03/03/2023 6:42 AM. I have personally reviewed the images and I agree with this report. WSN: [id number] Ordering Physician: Iva Quintero Dictated By: Dean Pettit MD Dictated Date/Time: 03/03/23 7:55 am Reviewed By: Johnnie Foreman MD Signed By: Johnnie Foreman MD Signed Date/Time: 03/03/23 8:00 am Transcribed By: MIGDALIA Transcribed Date/Time: 03/03/23 6:44 am * Exam Date Time Procedure Performing Provider Status 03/03/23 5:[address] Maxilloface W/O Contrast Barbie Gupta; Elena (Verified) Notes: (CT Maxilloface W/O Contrast) Reason For Exam: Facial trauma, blunt;Other: RESULT: CT Maxilloface W/O Contrast CT Head/Brain W/O Contrast, CT Cervical Spine W/O Contrast, CT Maxilloface W/O Contrast Hx of Present Illness: coming from SNF, unwitnessed fall, multiple skin tears, bruising to L occipital, grimace with right arm movement and abd palpation; Reason: Head trauma, mod-severe. Clinical Question(s): Hematoma. TECHNIQUE: Noncontrast head CT using axial technique and reconstructed in axial and coronal planes.Weight-based protocol using automatic tube modulation was used to optimize exposure parameters. CTDIvol Body: 12.60 mGy, DLP Body: 416 mGy*cm. CTDIvol Head: 40.00 mGy, DLP Head: 671 mGy*cm. COMPARISON: Head CT 02/18/2023, CT head and cervical spine 02/16/2023, CT head and cervical spine, andmaxillofacial CT 02/04/2023. FINDINGS: BRAIN and EXTRA-AXIAL SPACES: No parenchymal hemorrhage, midline shift or mass effect. Ross-white matter differentiation is well preserved. No acute infarct. Negative insular ribbon sign. Atherosclerotic vascular calcification ofthe carotid arteries but negative hyperdense vessel sign. Moderate prominence of the ventricles and sulci consistent with parenchymal volume loss. Moderate low-density white matter changes. No subarachnoid hemorrhage, subdural or epidural collections. CALVARIUM, SKULL BASE AND SOFT TISSUES: No fractures or suspicious bony lesions. Mild scattered mucosal thickening in the paranasal sinuses with a left maxillary sinus mucus retention cyst. Status-post bilateral lens extraction. Left supraorbital and left frontal scalp soft tissue swelling. CERVICAL SPINE: No fracture. No acute osseous abnormalities. There are, multilevel degenerative changes of the visualized spine with multilevel intervertebral disc space height loss. Multilevel degenerative endplatechanges with confluent bulky osteophytes which are most prominent at the C5-C6 through C7-T1 levels, suggesting DISH. Normal alignment. No locked or perched facet. OTHER BONES: No acute abnormality. CERVICAL SOFT TISSUES AND LUNG APICES: Clear lung apices. Normal thyroid gland. MAXILLOFACE: Periorbital soft tissues: Mild, persistent left supraorbital soft tissue swelling (303:42), representing decreasing hematoma.. Orbital soft tissues: Normal. No hemorrhage or ocular injury. Frontal bones: No fracture. Orbital marquez: No fracture. Nasal bones: No fracture. Frontal processes of maxilla: No fracture. Nasal Septum: No fracture. Anterior nasal spine: Intact. Maxillary bones: No fracture. Alveolus: No fracture or avulsed teeth. Zygomatic arches: No fracture. No overlying soft tissue swelling. Pterygoid plates: Intact bilaterally. Mandible: The portions included on the exam are normal. No fracture or dislocation. IMPRESSION: No acute intracranial abnormality. No acute fracture of the cervical spine. No acute maxillofacial fracture. Results were relayed by [facility] by Dr. Pettit to Iva Quintero DO on 03/03/2023 6:04 AM. I have personally reviewed the images and I agree with this report. WSN: [id number] Ordering Physician: Iva Quintero Dictated By: Dean Pettit MD Dictated Date/Time: 03/03/23 7:41 am Reviewed By: Radha Moreno MD Signed By: Radha Moreno MD Signed Date/Time: 03/03/23 7:46 am Transcribed By: MIGDALIA Transcribed Date/Time: 03/03/23 6:05 am * Exam Date Time Procedure Performing Provider Status 03/03/23 5:[address] Cervical Spine W/O Contrast Barbie Gupta; Elena (Verified) Notes: (CT Cervical Spine W/O Contrast) Reason For Exam: Neck trauma, dangerous injury mechanism;Other: RESULT: CT Cervical Spine W/O Contrast CT Head/Brain W/O Contrast, CT Cervical Spine W/O Contrast, CT Maxilloface W/O Contrast Hx of Present Illness: coming from SNF, unwitnessed fall, multiple skin tears, bruising to L occipital, grimace with right arm movement and abd palpation; Reason: Head trauma, mod-severe. Clinical Question(s): Hematoma. TECHNIQUE: Noncontrast head CT using axial technique and reconstructed in axial and coronal planes.Weight-based protocol using automatic tube modulation was used to optimize exposure parameters. CTDIvol Body: 12.60 mGy, DLP Body: 416 mGy*cm. CTDIvol Head: 40.00 mGy, DLP Head: 671 mGy*cm. COMPARISON: Head CT 02/18/2023, CT head and cervical spine 02/16/2023, CT head and cervical spine, andmaxillofacial CT 02/04/2023. FINDINGS: BRAIN and EXTRA-AXIAL SPACES: No parenchymal hemorrhage, midline shift or mass effect. Ross-white matter differentiation is well preserved. No acute infarct. Negative insular ribbon sign. Atherosclerotic vascular calcification ofthe carotid arteries but negative hyperdense vessel sign. Moderate prominence of the ventricles and sulci consistent with parenchymal volume loss. Moderate low-density white matter changes. No subarachnoid hemorrhage, subdural or epidural collections. CALVARIUM, SKULL BASE AND SOFT TISSUES: No fractures or suspicious bony lesions. Mild scattered mucosal thickening in the paranasal sinuses with a left maxillary sinus mucus retention cyst. Status-post bilateral lens extraction. Left supraorbital and left frontal scalp soft tissue swelling. CERVICAL SPINE: No fracture. No acute osseous abnormalities. There are, multilevel degenerative changes of the visualized spine with multilevel intervertebral disc space height loss. Multilevel degenerative endplatechanges with confluent bulky osteophytes which are most prominent at the C5-C6 through C7-T1 levels, suggesting DISH. Normal alignment. No locked or perched facet. OTHER BONES: No acute abnormality. CERVICAL SOFT TISSUES AND LUNG APICES: Clear lung apices. Normal thyroid gland. MAXILLOFACE: Periorbital soft tissues: Mild, persistent left supraorbital soft tissue swelling (303:42), representing decreasing hematoma.. Orbital soft tissues: Normal. No hemorrhage or ocular injury. Frontal bones: No fracture. Orbital marquez: No fracture. Nasal bones: No fracture. Frontal processes of maxilla: No fracture. Nasal Septum: No fracture. Anterior nasal spine: Intact. Maxillary bones: No fracture. Alveolus: No fracture or avulsed teeth. Zygomatic arches: No fracture. No overlying soft tissue swelling. Pterygoid plates: Intact bilaterally. Mandible: The portions included on the exam are normal. No fracture or dislocation. IMPRESSION: No acute intracranial abnormality. No acute fracture of the cervical spine. No acute maxillofacial fracture. Results were relayed by [facility] by Dr. Pettit to Iva Quintero DO on 03/03/2023 6:04 AM. I have personally reviewed the images and I agree with this report. WSN: [id number] Ordering Physician: Iva Quintero Dictated By: Dean ePttit MD Dictated Date/Time: 03/03/23 7:41 am Reviewed By: Radha Moreno MD Signed By: Radha Moreno MD Signed Date/Time: 03/03/23 7:46 am Transcribed By: MIGDALIA Transcribed Date/Time: 03/03/23 6:05 am Vital Signs Most recent to oldest [Reference Range]: 1 2 3 4 Oxygen Saturation [94-100 %] 95 % (03/04/23 3:49 PM) 95 % (03/04/23 2:18 PM) 96 % (03/04/23 7:21 AM) Pulse Rate [55-90 bpm] 96 bpm *H* (03/04/23 3:49 PM) 77 bpm (03/04/23 2:18 PM) 146 bpm *H* (03/04/23 8:57 AM) 151 bpm *H* (03/04/23 8:57 AM) Blood Pressure [90-138/55-84 mm Hg] 109/66mm Hg (03/04/23 3:49 PM) 119/93mm Hg (03/04/23 2:18 PM) 131/83mm Hg (03/04/23 8:57 AM) 131/83mm Hg (03/04/23 8:57 AM) Respiratory Rate [16-30 br/min] 18 br/min (03/04/23 3:49 PM) 18 br/min (03/04/23 2:18 PM) 20 br/min (03/04/23 7:21 AM) Temperature [96.8-100.4 DegF] 98.6 DegF (03/04/23 2:18 PM) 98.7 DegF (03/03/23 11:09 PM) 97.7 DegF (03/03/23 6:06 PM) Liters per Minute 1 L/min (03/03/23 5:49 PM) 2 L/min (03/03/23 4:13 PM) 2 L/min (03/03/23 1:10 PM) Mode of Delivery (Oxygen) Room air (03/04/23 3:49 PM) Room air (03/04/23 2:18 PM) Room air (03/04/23 7:21 AM) Blood pressure sites Arm, left (03/04/23 3:49 PM) Arm, left (03/04/23 2:18 PM) Arm, left (03/04/23 7:21 AM) Temperature Route Oral (03/04/23 2:18 PM) Oral (03/03/23 6:06 PM) Oral (03/03/23 1:10 PM) Social History Social History Type Response Smoking Status Never (less than 100 in lifetime) entered on: 07/22/22 Sex History and physical note * Elton Guerrero DO: PERFORM, MODIFY, MODIFY Event Display: History and Physical Hospital Authored Date: Patient: ??MACK ALY ? Age:??77 Years?Sex:??Male?:??1945?? Chief Complaint/Reason for Consultation unwitnessed fall History of Present Illness This is a 77-year-old male??with past medical history including??dementia,??gout,??atrial fibrillation,??chronic kidney disease stage III,??hereditary cerebral amyloid angiopathy,??hypertension,??obstructive sleep apnea not tolerant of CPAP,??and diabetes mellitus type 2, who currently presents to the hospital??from his rehab facility??after he sustained a fall out of bed at 2:30 in the morning.?? The patient was noted to be agitated at the time??and was apparently kicking, hitting,??screaming,and biting at??the staff.?? He did complain of some left arm pain??per the notes from the patient's facility.?? In the ED, the patient was initially noted to be??tachycardic with a heart rate in the 120s. ??He had lab work done that demonstrated a white count of 10.7.?? D-dimer was elevated at 13.32.?? Other labs showed a low chloride of 97 with a low bicarb at 21, anion gap of 19, and glucose level of 206 with a beta hydroxybutyrate of 3.2.?? Patient's BUN was 35 with a creatinine of 1.7.?? Itappears that the patient's prior baseline creatinine has been around 1.6- 1.7.?? There was elevationof his alk phos to 154 with an elevated total bili of 1.5.?? Lactate was negative x2.?? High-sensitivity troponin was initially 123, and then subsequently 95 and then 89.?? UA showed 1+ albumin, 1+ ketones, 1 WBC, less than 1 RBC, and moderate bacteria.?? He did undergo [facility] imaging including head, cervical spine, and maxillofacial CT that showed no acute abnormalities or fractures.?? He also underwent CT of the chest, abdomen and pelvis, as well as thoracic and lumbar spine.?? There is no acutetraumatic injury noted on the studies with questionable wall thickening of an under distended the patient also had bilateral wrist and elbow x-rays which showed no evidence of acute fracture.?? The patient is a poor historian due to his underlying dementia.?? His reports that he had a series of falls that led to his most recent hospitalization from February 19 to March 01, 2023.?? Prior to then, she states that he was able to go to the bathroom by himself, walk by himself, feed himself, and onlyneeded assistance with bathing since being at rehab, he has been able to get up to the bathroom.?? She also expresses some concern about using short acting insulin on the patient as she is afraid he might become hypoglycemic, which she states occurred on the last hospital stay Review of Systems A limited review of systems was obtained from this patient??due to his underlying dementia.?? He denies any pain complaints presently. Objective ? Vital Signs?? Temperature: 98.7 DegF (03/03/23 23:09:00) Temperature Route: Oral (03/03/23 18:06:00) Pulse Rate:??140 bpm??High (03/03/23 23:09:00) Respiratory Rate: 23 br/min (03/03/23 23:09:00) Systolic Blood Pressure: 130 mm Hg (03/03/23 23:09:00) Diastolic Blood Pressure: 80 mm Hg (03/03/23 23:09:00) Blood pressure sites: Arm, right (03/03/23 18:06:00) Mean Arterial Pressure: 97 mm Hg (03/03/23 18:06:00) Pulse Pressure: 38 mm Hg (03/03/23 18:06:00) Oxygen Saturation: 96 % (03/03/23 23:09:00) Liters per Minute: 1 L/min (03/03/23 17:49:00) Mode of Delivery (Oxygen): Room air (03/03/23 18:06:00) Early Warning Score: 5 (03/03/23 23:11:14) ? Physical Exam General: Alert, in no acute cardiopulmonary distress. Mental Status: Oriented to person, place and time. Normal affect. Head: Normocephalic.?? Mild left??periorbital ecchymosis??that appears old Eyes: Pupils are equal, round and reactive to light. Extraocular muscles intact. Ear, Nose and Throat: Oropharynx clear, mucous membranes moist. Ears and nose without masses, lesions or deformities. Trachea midline. Neck: Supple, Full range of motion. Respiratory: Clear to auscultation and percussion. No wheezing, rales or rhonchi. Cardiovascular: Heart sounds normal. Regular rate and rhythm, no murmurs, rubs or gallops. Gastrointestinal: Abdomen soft, non-tender, non-distended. Normal bowel sounds. No pulsatile mass. No hepatosplenomegaly. Neurologic: Cranial nerves II-XII grossly intact. No focal neurological deficits. Moves all extremities spontaneously. Sensation intact bilaterally. Skin: No rashes or lesions. No petechiae or purpura. No lower extremity??edema.?? Right upper extremity wrapped??with ED note mentioning??skin tears.?? Ecchymosis noted??as well. Musculoskeletal: No cyanosis or clubbing. No gross deformities. Normal range of motion. Assessment/Plan This is a 77-year-old male??with past medical history as noted above,??who currently presents to the hospital??after he sustained an??unwitnessed fall at his??rehab facility.?? He is now admitted forfurther management. ?? Altered mental status ??(R41.82) Fall ??(W19.XXXA) This patient will be admitted to an observation??medical bed.?? He presents after??an unwitnessed fall out of bed. ??He had [facility] imaging??including CT scan of the head, neck,??maxillofacial,??chest,??abdomen,??and lumbar and thoracic spine.?? His imaging did not show any evidence of acute fracture. ??He also had bilateral wrist and elbow??x-rays that were negative.?? He has had??increased??falls??in the past 1 to 2 months.?? We will ask PT to follow him while he is here.? Atrial fibrillation with RVR ??(I48.91) Patient noted initially to have a rapid heart rate in the 120s.?? Presently heart rate has improvedto the 70s to 80s.?? He is not on chronic anticoagulation due to fall risk and risk of bleeding.?? He is on diltiazem which will be continued, as well as his metoprolol. ?? Metabolic acidosis, increased anion gap ??(E87.29) Patient noted to have mild metabolic??acidosis with??elevated beta hydroxybutyrate??and increased anion gap.?? Lactate level was noted to be normal. ??Patient??glucose is noted to be??in the 200s.?? He did receive IV fluid hydration in the ED??and we will keep him on some??maintenance fluids.?? We will follow his??electrolytes in the morning. ?? Diabetes mellitus type 2. We will follow POC's and cover with sliding scale insulin. Patient's reports that he is prone to hypoglycemia,??so we will monitor POC's every 4 hours for now. ??We will also??adjust sliding scale coverage??to begin at a lower dose if needed. ?? Dementia We will continue patient on Seroquel??as needed for anxiety/agitation. ?? CODE STATUS.?? Patient is a full code. ?? DVT prophylaxis.?? We will use subcu Lovenox and encourage early mobilization. ?? Patient seen on??March 03, 2023. Total time spent with patient and in coordination of care: including reviewing the chart/medical records, speaking with the patient, formulating and discussing the treatment plan, and documenting thefindings and encounter: ??70 + min ? Histories Allergies Allergies ?(Active and Proposed [...] Electronic Cigarette/Vaping Details:??Electronic Cigarette Use: Never. ? Medications Home Medications Acetaminophen (acetaminophen 325 mg oral tablet)?975?Milligram?By Mouth?3 times a day?as needed?FEVER >100.5 Allopurinol (allopurinol 300 mg oral tablet)?300?Milligram?1?tablet?By Mouth?Daily Bisacodyl (bisacodyl 10 mg rectal suppository)?1?suppository(ies)?10?Milligram?Rectally?Every 24 hours?as needed?as needed for constipation Diltiazem (diltiazem 180 mg/24 hours oral capsule, extended release)?180?Milligram?1?capsule?By Mouth?Daily GlipiZIDE (glipiZIDE 5 mg oral tablet)?5?Milligram?1?tablet?By Mouth?Daily in AM Lactulose (lactulose 10 gm/15 ml oral syrup)?30?Milliliter?20?gram?By Mouth?Daily Melatonin (melatonin 3 mg oral tablet)?3?Milligram?By Mouth?Daily at bedtime?as needed?Insomnia Metoprolol (metoprolol 50 mg oral tablet, extended release)?50?Milligram?1?tablet?ByMouth?Daily Polyethylene Glycol 3350 (MiraLax Powder)?1?pack/packet?17?gram?By Mouth?Daily Quetiapine (SEROquel 25 mg oral tablet)?12.5?Milligram?0.5?tablet?By Mouth?3 times a day?as needed?Anxiety Senna (Senna 8.6 mg oral tablet)?8.6?Milligram?1?tab(s)?By Mouth?Daily?as needed?as needed for constipation Senna (Senna 8.6 mg oral tablet)?17.2?Milligram?2?tab(s)?By Mouth?Daily at bedtime Simethicone (simethicone 80 mg oral tablet, chewable)?80?Milligram?1?tablet?Chew?Every 8 hours?as needed?Gas Sodium Biphosphate-Sodium Phosphate (Fleet Enema 19 gm-7 gm rectal enema)?118?Milliliter?Rectally?Once?as needed?as needed for constipation?Use only if Bisacodyl is ineffective Trazodone (traZODone 50 mg oral tablet)?50?Milligram?1?tablet?By Mouth?Daily at bedtime?as needed?Insomnia ? Results Recent Labs BLOOD COUNT & DIFF WBC 10.7 k/mm3 ()?? 03/03/2023 04:20 RBC 4.85 m/mm3 ()?? 03/03/2023 04:20 Hgb 15.7 Gm/dL ()?? 03/03/2023 04:20 Hct 46.3 % ()?? 03/03/2023 04:20 MCV 95.5 femtoliters (High)?? 03/03/2023 04:20 MCH 32.4 pg ()?? 03/03/2023 04:20 MCHC 33.9 g/dL ()?? 03/03/2023 04:20 Platelet Count 245 k/mm3 ()?? 03/03/2023 04:20 RDW-SD 50.4 femtoliters (High)?? 03/03/2023 04:20 MPV 9.9 femtoliters ()?? 03/03/2023 04:20 Nucleated RBC (Automated) 0.0 #/100 WBC'S ()?? 03/03/2023 04:20 Abs. NRBC 0.0 k/mm3 ()?? 03/03/2023 04:20 Abs. Neut 8.3 k/mm3 (High)?? 03/03/2023 04:20 Abs. Lymph 1.2 k/mm3 ()?? 03/03/2023 04:20 Abs. [place] 0.8 k/mm3 ()?? 03/03/2023 04:20 Abs. Eo 0.1 k/mm3 ()?? 03/03/2023 04:20 Abs. Baso 0.1 k/mm3 ()?? 03/03/2023 04:20 Neut % 78.1 % (High)?? 03/03/2023 04:20 Lymph % 10.9 % (Low)?? 03/03/2023 04:20 [place] % 7.9 % ()?? 03/03/2023 04:20 Eos % 0.7 % ()?? 03/03/2023 04:20 Baso % 0.8 % ()?? 03/03/2023 04:20 Imm Gran 1.6 % ()?? 03/03/2023 04:20 Abs. Imm Gran 0.2 k/mm3 ()?? 03/03/2023 04:20 ?? CARDIAC CK, Total 80 units/L ()?? 03/03/2023 04:20 High Sensitivity Troponin (HSTnT) 89 ng/L (Critical)?? 03/03/2023 10:47 ?? CHEM GENERAL Sodium 137 mmol/L ()?? 03/03/2023 04:20 Potassium 4.7 mmol/L ()?? 03/03/2023 04:20 Chloride 97 mmol/L (Low)?? 03/03/2023 04:20 Bicarbonate Level 21 mmol/L (Low)?? 03/03/2023 04:20 Anion Gap 19 (High)?? 03/03/2023 04:20 Glucose Level 206 mg/dL (High)?? 03/03/2023 04:20 Glucose, POC 138 mg/dL (High)?? 03/03/2023 23:05 Beta Hydroxybutyrate 3.20 mmol/L (High)?? 03/03/2023 04:20 BUN 35 mg/dL (High)?? 03/03/2023 04:20 Creatinine-Blood 1.7 mg/dL (High)?? 03/03/2023 04:20 Estimated GFR Creatinine 41 ML/MIN/1.73 M2 ()?? 03/03/2023 04:20 Calcium 10.2 mg/dL ()?? 03/03/2023 04:20 Magnesium 2.1 mg/dL ()?? 03/03/2023 04:20 Protein, Total 6.7 Gm/dL ()?? 03/03/2023 04:20 Albumin 4.6 Gm/dL ()?? 03/03/2023 04:20 AG Ratio 2.2 ()?? 03/03/2023 04:20 Alkaline Phosphatase 154 units/L (High)?? 03/03/2023 04:20 AST (SGOT) 23 units/L ()?? 03/03/2023 04:20 ALT (SGPT) 29 units/L ()?? 03/03/2023 04:20 Bilirubin, Total 1.5 mg/dL (High)?? 03/03/2023 04:20 Lactate 1.7 mmol/L ()?? 03/03/2023 06:26 ?? COAG INR 1.0 ()?? 03/03/2023 04:20 Protime (PT) 10.5 seconds ()?? 03/03/2023 04:20 APTT 24.5 seconds ()?? 03/03/2023 04:20 D-Dimer 13.32 mg/L FEU (High)?? 03/03/2023 04:20 ?? ENDOCRINE/TUMOR MARKER TSH 2.35 uIU/mL ()?? 03/03/2023 04:20 ?? UA/URINALYSIS Appear/Color, Urine YELLOW ()?? 03/03/2023 04:55 Specific [place], Urine 1.021 ()?? 03/03/2023 04:55 pH, Urine 5.0 ()?? 03/03/2023 04:55 Albumin, Urine 1+ (Abnormal)?? 03/03/2023 04:55 Glucose, Urine NEGATIVE ()?? 03/03/2023 04:55 Ketones, Urine 1+ (Abnormal)?? 03/03/2023 04:55 Bilirubin, Urine NEGATIVE ()?? 03/03/2023 04:55 Hemoglobin, Urine NEGATIVE ()?? 03/03/2023 04:55 Nitrite, Urine NEGATIVE ()?? 03/03/2023 04:55 Leukocyte, Urine NEGATIVE ()?? 03/03/2023 04:55 Urobilinogen 2 mg/dL (Abnormal)?? 03/03/2023 04:55 WBC's, Urine 1 /HPF ()?? 03/03/2023 04:55 RBC's, Urine <1 /HPF ()?? 03/03/2023 04:55 Bacteria MODERATE HPF (Abnormal)?? 03/03/2023 04:55 Squamous Epith 1 /HPF ()?? 03/03/2023 04:55 Hyaline Cast 8 LPF (High)?? 03/03/2023 04:55 Mucus SLIGHT /LPF ()?? 03/03/2023 04:55 Hold Urine Culture Testing available 48 hours from time of collection. ()?? 03/03/2023 04:55 ?? VIROLOGY COVID-19 by RT-PCR NEGATIVE ()?? 03/03/2023 04:56 ? Imaging(s) ?Other Image ?EKG showing atrial fibrillation with heart rate 125. Some nonspecific T wave abnormalities noted. ?(03/03/2023 05:[address] Head/Brain W/O Contrast) IMPRESSION: ?? No acute intracranial abnormality. ?? No acute fracture of the cervical spine. ?? No acute maxillofacial fracture. ?? [1] ?? (03/03/2023 05:[address] Chest W/ Contrast) IMPRESSION: ?? No acute traumatic injury of the chest, abdomen, pelvis, thoracic spine, and lumbar spine. ?? Questionable wall thickening of an underdistended bladder. Please correlate with urinalysis. ? (03/03/2023 07:11 EDT Elbow Min 3 Views Left) IMPRESSION:? No acute fracture.?? [2] ?? (03/03/2023 07:11 EDT Wrist Comp Min 3 Views Left) IMPRESSION:? No acute fracture or dislocation is seen involving the left wrist.?? [3] ?? (03/03/2023 07:11 EDT Wrist Comp Min 3 Views Right) IMPRESSION:? No acute fracture.?? [4] ?? (03/03/2023 07:11 EDT Elbow Min 3 Views Right) IMPRESSION:? No acute fracture.?? [5] [1]??CT Head/Brain W/O Contrast; Josh CALLEJAS, Radha N 03/03/2023 05:33 EDT [2]??Elbow Min 3 Views Left; Terry Clark MD V 03/03/2023 07:11 EDT [3]??Wrist Comp Min 3 Views Left; Terry Clark MD V 03/03/2023 07:11 EDT [4]??Wrist Comp Min 3 Views Right; Terry Clark MD V 03/03/2023 07:11 EDT [5]??Elbow Min 3 Views Right; Terry Clark MD V 03/03/2023 07:11 EDT Note * Zuleika CALLEJAS, Jag Wilson: PERFORM Event Display: Discharge/Transfer Note Hospital Authored Date: [id number] Patient: ??MACK ALY ? Age:??77 Years?Sex:??Male?:??1945?? Patient Information Discharge Location: [facility] Primary Care Physician: Olga Singer MD Admit Date/Time: 03/03/23 03:38 Discharge Disposition Discharge Disposition: [facility] Facility[facility]hab Discharge Diagnosis Metabolic acidosis, increased anion gap (E87.29) Altered mental status (R41.82) Atrial fibrillation with RVR (I48.91) Fall (W19.XXXA) ?? _ Discharge Medications Acetaminophen (acetaminophen 325 mg oral tablet)?975?Milligram?By Mouth?3 times a day?as needed?FEVER >100.5 Allopurinol (allopurinol 300 mg oral tablet)?300?Milligram?1?tablet?By Mouth?Daily Bisacodyl (bisacodyl 10 mg rectal suppository)?1?suppository(ies)?10?Milligram?Rectally?Every 24 hours?as needed?as needed for constipation Diltiazem (diltiazem 180 mg/24 hours oral capsule, extended release)?180?Milligram?1?capsule?By Mouth?Daily GlipiZIDE (glipiZIDE 5 mg oral tablet)?5?Milligram?1?tablet?By Mouth?Daily in AM Lactulose (lactulose 10 gm/15 ml oral syrup)?30?Milliliter?20?gram?By Mouth?Daily Melatonin (melatonin 3 mg oral tablet)?3?Milligram?By Mouth?Daily at bedtime?as needed?Insomnia Metoprolol (metoprolol 50 mg oral tablet, extended release)?50?Milligram?1?tablet?ByMouth?Daily Polyethylene Glycol 3350 (MiraLax Powder)?1?pack/packet?17?gram?By Mouth?Daily Quetiapine (SEROquel 25 mg oral tablet)?12.5?Milligram?0.5?tablet?By Mouth?3 times a day?as needed?Anxiety Senna (Senna 8.6 mg oral tablet)?8.6?Milligram?1?tab(s)?By Mouth?Daily?as needed?as needed for constipation Senna (Senna 8.6 mg oral tablet)?17.2?Milligram?2?tab(s)?By Mouth?Daily at bedtime Simethicone (simethicone 80 mg oral tablet, chewable)?80?Milligram?1?tablet?Chew?Every 8 hours?as needed?Gas Sodium Biphosphate-Sodium Phosphate (Fleet Enema 19 gm-7 gm rectal enema)?118?Milliliter?Rectally?Once?as needed?as needed for constipation?Use only if Bisacodyl is ineffective Trazodone (traZODone 50 mg oral tablet)?50?Milligram?1?tablet?By Mouth?Daily at bedtime?as needed?Not on current paper chart?Insomnia ? Hospital Course ? 77-year-old male??with past medical history as noted above,??who currently presents to the hospital??after he sustained an??unwitnessed fall at his??rehab facility.?? No new fractures. ??Was dehydrated with electrolyte imbalances which corrected with fluids.?? Skilled for rehab and discharged back to [facility] in stable condition with no medication changes.?? Patient's updated at bedside and agreeable with plan of care ?? Altered mental status ??(R41.82) Fall ??(W19.XXXA) This patient was admitted to an observation??medical bed.?? He presents after??an unwitnessed fall out of bed. ??He had [facility] imaging??including CT scan of the head, neck,??maxillofacial,??chest,??abdomen,??and lumbar and thoracic spine.?? His imaging did not show any evidence of acute fracture. ??Healso had bilateral wrist and elbow??x-rays that were negative.?? He has had??increased??falls??in the past 1 to 2 months.?? Current falls were in the setting of dehydration since patient??was refusing oral fluids at rehab, patient's at bedside and??stated further and stronger efforts are being made to ensure he??keeps up with oral hydration Physical therapy worked with patient and case management discussed with patient and family??patientwas discharged back to [facility] in stable condition ?? Atrial fibrillation with RVR ??(I48.91) Patient noted initially to have a rapid heart rate in the 120s.?? Presently heart rate has improvedto the 70s to 80s.?? He is not on chronic anticoagulation due to fall risk and risk of bleeding.?? He is on diltiazem which will be continued, as well as his metoprolol. ?? Metabolic acidosis, increased anion gap ??(E87.29) Patient noted to have mild metabolic??acidosis with??elevated beta hydroxybutyrate??and increased anion gap.?? Lactate level was noted to be normal. ??Patient??glucose is noted to be??in the 200s.?? He did receive IV fluid hydration in the ED??and we will keep him on some??maintenance fluids.?? Electrolytes normalized after??IV hydration??and metabolic acidosis resolved with normal anion gap prior to discharge ?? Diabetes mellitus type 2. Continue glipizide at rehab ?? Dementia We will continue patient on Seroquel??as needed for anxiety/agitation. ? Objective ? Vital Signs?? Temperature: 98.6 DegF (03/04/23 14:18:00) Temperature Route: Oral (03/04/23 14:18:00) Pulse Rate: 77 bpm (03/04/23 14:18:00) Respiratory Rate: 18 br/min (03/04/23 14:18:00) Systolic Blood Pressure: 119 mm Hg (03/04/23 14:18:00) Diastolic Blood Pressure:??93 mm Hg??High (03/04/23 14:18:00) Blood pressure sites: Arm, left (03/04/23 14:18:00) Mean Arterial Pressure: 102 mm Hg (03/04/23 14:18:00) Pulse Pressure: 26 mm Hg (03/04/23 14:18:00) Oxygen Saturation: 95 % (03/04/23 14:18:00) Liters per Minute: 1 L/min (03/03/23 17:49:00) Mode of Delivery (Oxygen): Room air (03/04/23 14:18:00) Early Warning Score: 2 (03/04/23 14:19:10) ? . Physical Exam ? General: Alert, in no acute cardiopulmonary distress. Mental Status: Oriented to person, place Respiratory: Clear to auscultation and percussion. No wheezing, rales or rhonchi. Cardiovascular: Heart sounds normal. Regular rate and rhythm, no murmurs, rubs or gallops. Gastrointestinal: Abdomen soft, non-tender, non-distended. Normal bowel sounds. No pulsatile mass. No hepatosplenomegaly. Neurologic: Cranial nerves II-XII grossly intact. No focal neurological deficits. Moves all extremities spontaneously. Sensation intact bilaterally. Skin: No rashes or lesions. No petechiae or purpura. No lower extremity??edema.?? Right upper extremity wrapped??with ED note mentioning??skin tears.?? Ecchymosis noted??as well. Musculoskeletal: No cyanosis or clubbing. No gross deformities. Normal range of motion. ?? Pending Results Blood Culture ordered on 03/03/2023 Blood Culture #2 ordered on 03/03/2023 Patient Education Titles Fall with Uncertain Cause?? Follow-Up Appointments Added Follow Up ?Time Frame ?Comments Olga Singer MD?3-5 day: call to discuss follow up visit Patient Instructions You were seen at [facility] for falls.?? While you were here we performed a CAT scan of the head, neck, chest, abdomen, pelvis.?? These demonstrated no traumatic injuries.?? You were found to be in atrial fibrillation that was fast however this improved with fluids.?? You appeared somewhat dehydrated on exam.?? We performed vital signs which were otherwise stable.? Evaluated??acute kidney injury and some electrolyte imbalances due to dehydration which improved with IV fluids ?? He was stable to return back to [facility], please ensure you have good oral fluid intake??daily to prevent dehydration since this was the primary cause behind your??return to the hospital Post Discharge Care Diet: Diabetic Diet Activity: As tolerated Code Status: ?? Full Resuscitation Condition: Stable Prognosis: Fair Discharge ?03/04/23 14:31:00 EDT Discharge Prescriptions ?None, ??03/04/23 14:31:00 EDT Home Health Face to Face ^[facility]Health[facility] Results Discharge Labs BLOOD COUNT & DIFF WBC 9.6 k/mm3 ()?? 03/04/2023 05:46 RBC 4.61 m/mm3 (Low)?? 03/04/2023 05:46 Hgb 14.9 Gm/dL ()?? 03/04/2023 05:46 Hct 45.0 % ()?? 03/04/2023 05:46 MCV 97.6 femtoliters (High)?? 03/04/2023 05:46 MCH 32.3 pg ()?? 03/04/2023 05:46 MCHC 33.1 g/dL ()?? 03/04/2023 05:46 Platelet Count 247 k/mm3 ()?? 03/04/2023 05:46 RDW-SD 53.1 femtoliters (High)?? 03/04/2023 05:46 MPV 9.8 femtoliters ()?? 03/04/2023 05:46 Nucleated RBC (Automated) 0.0 #/100 WBC'S ()?? 03/04/2023 05:46 Abs. NRBC 0.0 k/mm3 ()?? 03/04/2023 05:46 Abs. Neut 6.6 k/mm3 ()?? 03/04/2023 05:46 Abs. Lymph 1.7 k/mm3 ()?? 03/04/2023 05:46 Abs. [place] 0.8 k/mm3 ()?? 03/04/2023 05:46 Abs. Eo 0.3 k/mm3 ()?? 03/04/2023 05:46 Abs. Baso 0.1 k/mm3 ()?? 03/04/2023 05:46 Neut % 69.0 % ()?? 03/04/2023 05:46 Lymph % 17.2 % ()?? 03/04/2023 05:46 [place] % 8.6 % ()?? 03/04/2023 05:46 Eos % 3.1 % ()?? 03/04/2023 05:46 Baso % 1.0 % ()?? 03/04/2023 05:46 Imm Gran 1.1 % ()?? 03/04/2023 05:46 Abs. Imm Gran 0.1 k/mm3 ()?? 03/04/2023 05:46 ?? CARDIAC CK, Total 80 units/L ()?? 03/03/2023 04:20 High Sensitivity Troponin (HSTnT) 89 ng/L (Critical)?? 03/03/2023 10:47 ?? CHEM GENERAL Sodium 141 mmol/L ()?? 03/04/2023 07:00 Potassium 4.2 mmol/L ()?? 03/04/2023 07:00 Chloride 106 mmol/L ()?? 03/04/2023 07:00 Bicarbonate Level 23 mmol/L ()?? 03/04/2023 07:00 Anion Gap 12 ()?? 03/04/2023 07:00 Glucose Level 109 mg/dL (High)?? 03/04/2023 07:00 Glucose, POC 138 mg/dL (High)?? 03/03/2023 23:05 Beta Hydroxybutyrate 3.20 mmol/L (High)?? 03/03/2023 04:20 BUN 22 mg/dL ()?? 03/04/2023 07:00 Creatinine-Blood 1.3 mg/dL (High)?? 03/04/2023 07:00 Estimated GFR Creatinine 56 ML/MIN/1.73 M2 ()?? 03/04/2023 07:00 Calcium 9.4 mg/dL ()?? 03/04/2023 07:00 Magnesium 2.1 mg/dL ()?? 03/03/2023 04:20 Protein, Total 6.7 Gm/dL ()?? 03/03/2023 04:20 Albumin 4.6 Gm/dL ()?? 03/03/2023 04:20 AG Ratio 2.2 ()?? 03/03/2023 04:20 Alkaline Phosphatase 154 units/L (High)?? 03/03/2023 04:20 AST (SGOT) 23 units/L ()?? 03/03/2023 04:20 ALT (SGPT) 29 units/L ()?? 03/03/2023 04:20 Bilirubin, Total 1.5 mg/dL (High)?? 03/03/2023 04:20 Lactate 1.7 mmol/L ()?? 03/03/2023 06:26 ? COAG INR 1.0 ()?? 03/03/2023 04:20 Protime (PT) 10.5 seconds ()?? 03/03/2023 04:20 APTT 24.5 seconds ()?? 03/03/2023 04:20 D-Dimer 13.32 mg/L FEU (High)?? 03/03/2023 04:20 ?? ENDOCRINE/TUMOR MARKER TSH 2.35 uIU/mL ()?? 03/03/2023 04:20 ? UA/URINALYSIS Appear/Color, Urine YELLOW ()?? 03/03/2023 04:55 Specific [place], Urine 1.021 ()?? 03/03/2023 04:55 pH, Urine 5.0 ()?? 03/03/2023 04:55 Albumin, Urine 1+ (Abnormal)?? 03/03/2023 04:55 Glucose, Urine NEGATIVE ()?? 03/03/2023 04:55 Ketones, Urine 1+ (Abnormal)?? 03/03/2023 04:55 Bilirubin, Urine NEGATIVE ()?? 03/03/2023 04:55 Hemoglobin, Urine NEGATIVE ()?? 03/03/2023 04:55 Nitrite, Urine NEGATIVE ()?? 03/03/2023 04:55 Leukocyte, Urine NEGATIVE ()?? 03/03/2023 04:55 Urobilinogen 2 mg/dL (Abnormal)?? 03/03/2023 04:55 WBC's, Urine 1 /HPF ()?? 03/03/2023 04:55 RBC's, Urine <1 /HPF ()?? 03/03/2023 04:55 Bacteria MODERATE HPF (Abnormal)?? 03/03/2023 04:55 Squamous Epith 1 /HPF ()?? 03/03/2023 04:55 Hyaline Cast 8 LPF (High)?? 03/03/2023 04:55 Mucus SLIGHT /LPF ()?? 03/03/2023 04:55 Hold Urine Culture Testing available 48 hours from time of collection. ()?? 03/03/2023 04:55 ?? VIROLOGY COVID-19 by RT-PCR NEGATIVE ()?? 03/03/2023 04:56 ? Microbiology ?? COVID-19 (Novel Coronavirus), Rapid PCR?? Completed?? Source: Nasal Body Site: Nose Collected Dt/Tm: 03/03/2023 04:56 Last Updated Dt/Tm: 03/03/2023 05:44 ? 38_ minutes spent on discharge * Iva Quintero DO: PERFORM Event Display: Patient Education Leaflets Authored Date: [id number] Fall with Uncertain Cause ?? [id number] Fall with Uncertain Cause You had a fall today. But the cause of your fall is not certain. Falls can happen due to slipping, tripping, or losing your balance. A fall can also happen from a fainting spell or seizure. A fall can happen for a simple reason (such as tripping over something). But falls in older adults are often caused by a combination of things: ??? Age-related decline in function with worsening balance, stability, vision, and muscle strength ??? Chronic illness, such as heart arrhythmias, heart valve disease, vascular disease, COPD, diabetes, stroke, or arthritis ??? Shoes with lack of support that make you likely to slip or slide ??? Anemia or low blood pressure? Effects or side effects of medicines ??? Fluid loss (dehydration) orrecent alcohol use ??? Hazards in your home or around you, such as??uneven surfaces, slippery ground, an unfamiliar place, or obstacles ??? Something linked to an activity you were doing, such as rushing to the bathroom The cause of your fall today is not certain. So it's possible that it was due to a fainting spell or seizure. This means that it could happen again without warning. If you fall again without a cause,come back to this facility right away for more tests. Or follow up with your healthcare provider asexplained below. It's normal to feel sore and tight in your muscles and back the next day, and not just the muscles you first injured. All the parts of your body are connected. So while at first one area hurts, the next day another may hurt. Also, when you injure yourself, it causes inflammation. This makes your muscles tighten up and hurt more. After that, it should slowly improve over the next few days. Tell your provider if you have any more severe pain. Even without a definite head injury, you can still get a concussion. Concussions and bleeding can still happen, especially if you had a recent injury. Or if you take blood-thinner medicine. You may also have a mild headache. And you may feel tired and even nauseous or dizzy. Home care ??? Rest today and resume your normal activities as soon as you feel normal again. It's best to stay with someone. They can check on you for the next 24 hours to see if you fall again. ??? If you were hurt during the fall, follow your healthcare provider's advice on caring for your injury. ??? If you get lightheaded or dizzy, lie down right away. Or sit and lean forward with your head down. ??? For your safety, until you see your healthcare provider: o Don't drive a car or operate dangerous equipment. o Don't take a bath or shower alone. o Don't swim alone. A condition causing fainting or seizures must be ruled out before doing these activities. ??? You may use acetaminophen or ibuprofen to control pain, unless another pain medicine was prescribed. Talk with your provider beforeusing these medicines if you: o Have chronic liver or kidney disease o Ever had a stomach ulcer or??gastrointestinal bleeding o Take blood- thinning medicines ??? Keep your appointments for any further testing that may have been scheduled for you. ?? Follow-up care Follow up with your healthcare provider, or as advised. If X-rays or a CT scan were done, you will be told if there is a change in the reading, especially if it affects treatment. ?? Call 911 Call 911 if any of these happen: ??? Trouble breathing ??? Confusion ??? Trouble waking up ??? Fainting or loss of consciousness ??? Fast or very slow heart rate ??? Seizure ??? Speech or vision problems ??? Arm or leg weakness ??? Trouble walking or talking, loss of balance, numbness or weakness on one side of your body, or facial droop ?? When to get medical advice Call your healthcare provider right away if any of these happen: ??? Another unexplained fall ??? Dizziness ??? Severe headache ??? Nausea and vomiting ??? Blood in vomit, stools (black or red color) ?? Last Reviewed Date: 2022 ?? 1034-1922 [employer]. All rights reserved. This information is not intended as a substitute for professional medical care. Always follow your healthcare professional's instructions. ?? Patient Care team information Care Team Personnel Name: Adrian De Leon RN Position: [facility] RN Member Role: Primary Care Nurse Name: Adelita Rizzo RN Position: [facility] RN W/OE and Tasks Member Role: Primary Care Nurse Name: Olga Singer MD Position: [facility] Physician - Primary Care Member Role: PCP Address: Address: [address] [place] [address] [address] [facility] [place] [address]- [place] Name: Antoni Garcia RN Position: [facility] RN Member Role: Primary Care Nurse Name: Shaji North RN Position: [facility] RN Member Role: Primary Care Nurse Name: Jennifer Soria RN Position: [facility] RN Member Role: Primary Care Nurse Name: Agata SEBASTIAN Attending Position: [facility] ED Medicine MD Name: Mack Fall RN Position: [facility] ED RN W/OE and Tasks Member Role: Patient Care Provider Name: Alexandra Arevalo Position: [facility] ED [facility] Member Role: Patient Care Provider Name: Verona Kinney RN Position: [facility] ED RN W/OE and Tasks Member Role: Patient Care Provider Care Team Related Persons Name: CYN ALY Address: [address] [address]
--- OUTSIDE RECORDS SUMMARY | 2023-06-17 04:30 | XMS_ITS | Continuity of Care Document ---
Author Name Unknown Organization [facility] ter Address [address] [place] [id number]- Care Team Providers Care Correctional Guard Name Role Phone Jericho CALLEJAS, Ganga Ball Primary Care Physician Encounter [facility] Date(s): 05/12/23 - 05/17/[address] [address]- Encounter Diagnosis Syncope(Final) - 05/10/23 Hypotension(Final) - 05/10/23 Discharge Disposition: A-Transfer SNF Attending Physician: Kody Patel MD Admitting Physician: Mckenzie Singh MD Referring Physician: Not on Staff, Referring [...] influenza virus vaccine, inactivated 08/01/14 Mehdi rded Medications acetaminophen 325 mg oral tablet 975 mg, By Mouth, 3 times a day, PRN, Refills 0, Maintenance, FEVER >100.5, 02/28/23 13:10:00 EDT, Partial fill upon patient request if the prescription is for a schedule II opioid drug. Start Date: 02/28/23 Status: Ordered allopurinol 300 mg oral tablet 300 mg, 1, tablet, By Mouth, Daily, # 90 tablet, Refills 1, Tot. Refills 1, Maintenance, 04/18/23 15:35:00 EDT, Route to Pharmacy Electronically, [facility]/pharmacy #[id number], Partial fill upon patient requestif the prescription is for a schedule II opioid anika... Start Date: 04/18/23 Status: Ordered diltiazem 180 mg/24 hours oral capsule, extended release 180 mg, 1, capsule, By Mouth, Daily, # 90 capsule, Refills 3, Tot. Refills 3, Maintenance, 04/18/2315:35:00 EDT, Route to Pharmacy Electronically, [facility]/pharmacy #[id number], Partial fill upon patient request if the prescription is for a schedule II opioid d... Start Date: 04/18/23 Status: Ordered lactulose 10 gm/15 ml oral [...] drug. Start Date: 02/28/23 Status: Ordered metoprolol 25 mg oral tablet 12.5 mg, 0.5, tablet, By Mouth, 2 times a day, # 180 tablet, Refills 0, Tot. Refills 0, Maintenance, 05/11/23 12:06:00 EDT, Do Not Route, Partial fill upon patient request if the prescription is for a schedule II opioid drug. Start Date: 05/11/23 Status: Ordered metoprolol 50 mg oral tablet 12.5 mg, Tablet, By Mouth, 05/17/23 9:00:00 EDT Start Date: 05/17/23 Stop Date: 05/17/23 Status: Completed MiraLax Powder 1 pack/packet = 17 Gm, By Mouth, Daily, 0 Refills, Maintenance, 02/28/23 13:10:00 EDT, Powder, Partial fill upon patient request if the prescription is for a schedule II opioid drug. Start Date: 02/28/23 Status: Ordered mirtazapine 15 mg oral tablet = 7.5 mg, By Mouth, Daily at bedtime, # 30 tablet, 0 Refills, Maintenance, 05/16/23 11:06:00 EDT, Tablet, [facility], Partial fill upon patient request if the prescription is for a schedule II opioid drug., 182, cm, 05/16/23 8:41:00 EDT,... Start Date: 05/16/23 Status: Ordered Senna 8.6 mg oral tablet [...] Status: Ordered SEROquel 25 mg oral tablet See Instructions, PRN, 0.5 tablet By Mouth daily at bedtime; 2 times a day as needed for agitation,Refills 0, Maintenance, Anxiety, 02/28/23 13:10:00 EDT, Instructions Replace Required Details, Partial fill upon patient request if the prescription is... Start Date: 02/28/23 Status: Ordered sertraline 25 mg oral tablet TAKE 1 TABLET BY MOUTH EVERY DAY Start Date: 05/10/23 Status: Ordered simethicone 80 mg oral tablet, chewable 80 mg, 1, tablet, Chew, Every 8 hours, PRN, Refills 0, Maintenance, Gas, 02/28/23 13:10:00 EDT, Partial fill upon patient request if the prescription is for a schedule II opioid drug. Start Date: 02/28/23 Status: Ordered traZODone 50 mg oral tablet TAKE 1 TABLET BY MOUTH AT BEDTIME NEEDED FOR INSOMNIA Start Date: 05/10/23 Status: Ordered Wheelchair with high back and lay's back Wheelchair with high back and lay's back, See Instructions, # 1 Unknown, Refills 0, Tot. 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 This isolate was identified using Maldi-TOF system REPORT STATUS : FINAL 05/15/2023 Radiology Reports * Exam Date Time Procedure Performing Provider Status 05/10/23 4:17 PM Chest Portable Noy Santo; Auth (V erified) Notes: (Chest Portable) Reason For Exam: Stroke;Other: RESULT: Chest Portable Examination: Portable chest performed on 05/10/2023. History: Stroke. Findings: A frontal view of the chest is compared to a prior study dated 02/17/2023. The cardiac and mediastinal silhouettes are within normal limits. The lungs are clear. The osseous and soft tissue structures are unremarkable. IMPRESSION: There is no acute cardiopulmonary disease. WSN: [id number] Ordering Physician: Mayito Wayne Dictated By: Yu Handley MD Dictated Date/Time: 05/10/23 4:20 pm Reviewed By: Yu Handley MD Signed By: Yu Handley MD Signed Date/Time: 05/10/23 4:20 pm Transcribed By: MIGDALIA Transcribed Date/Time: 05/10/23 4:20 pm * Exam Date Time Procedure Performing Provider Status 05/10/23 1:[address] Angio Neck Hyperacute Stroke Adam Garcia; Auth (Verified) Notes: (CT Angio Neck Hyperacute Stroke) Reason For Exam: Aneurysm, neck vessel(s);Other: RESULT: CT Angio Neck Hyperacute Stroke CT Angio Head Hyperacute Stroke, CT Angio Neck Hyperacute Stroke Reason: Other:; Stroke; Clinical Question(s): Other:; Hematoma Aneurysm / Other: TECHNIQUE: CT angiogram of the head and neck was performed after bolus administration of intravenous contrast. 100 mL of Omnipaque 300 was administered intravenously. Coronal and sagittal MIP reformatted images were obtained. Additional 3-D images were created on a separate workstation under concurrent supervision by the attending radiologist. All stenoses are measured using NASCET criteria. Weight-based protocol using automatic tube modulation was used to optimize exposure parameters. RADIATION DOSE PARAMETERS: CTDIvol Body: 16.43 mGy, DLP Body: 616 mGy*cm. CTDIvol Head: 46.80 mGy, DLP Head: 774 mGy*cm. COMPARISON: Noncontrast CT head performed concurrently. FINDINGS: There is a 3 vessel arch. The supraaortic proximal great neck vessels appear normal in caliber and appearance. No hemodynamically significant stenosis. The right common carotid artery is normal in caliber. The right carotid bulb is normal. The right proximal ICA shows 0% stenosis by NASCET criteria. The left common carotid artery is normal in caliber. The left carotid bulb is normal. The left proximal ICA shows 0% stenosis by NASCET criteria. Right vertebral artery: Slightly dominant. Patent without stenosis. Left vertebral artery: Patent without stenosis. Cervical spine: No acute pathology. Multiple levels of cervical spondylosis Soft tissues and lung apices: The visualized upper lungs are clear. Bilateral thyroid lobes are normal. There is no definite abnormality throughout the soft tissue neck. [place]: Concurrent CT of head showed no acute pathology. Generalized volume loss and periventricular hypodensities are noted. Status post bilateral lens extractions. Bilateral internal carotid arteries at the skull base have mural calcifications. No definite stenosis is seen. The right posterior communicating artery is visualized. An infundibulum is seen at origin of the posterior communicating artery . Bilateral ACAs, MCAs and their branches are patent. No stenosis or vessel cut off is seen. No definite aneurysm is noted. Bilateral intracranial vertebral arteries show no definite stenosis. The vertebrobasilar junction is normal. The basilar artery is patent. No stenosis or dissection is seen. There is no basilar tip aneurysm. Bilateral truck driver and their branches are patent. The superior sagittal sinuses, the straight sinus, bilateral transverse and sigmoid sinuses: Patentwithout dural sinus thrombosis. IMPRESSION: No cutoff or high-grade stenosis of the major branches of the intracranial arteries. No aneurysm, stenosis, or vascular malformations present. The right proximal internal carotid artery show no significant stenosis by NASCET criteria. The left proximal internal carotid artery show no significant stenosis by NASCET criteria. The right cervical vertebral artery shows no significant stenosis. The left cervical vertebral artery shows no significant stenosis. REFERENCE: NASCET Criteria: The degree of internal carotid stenosis is based on NASCET Criteria: Normal: No stenosis Mild: Less than 50% stenosis Moderate: 50-69% stenosis Severe: 70-99% stenosis Total occlusion: No detectable patent lumen. The report was cortext to Dr. Mayito Wayne at 2:15 PM on 05/10/2023. WSN: [id number] Ordering Physician: Mayito Wayne Dictated By: Tunde Sosa MD Dictated Date/Time: 05/10/23 2:20 pm Reviewed By: Tunde Sosa MD Signed By: Tunde Sosa MD Signed Date/Time: 05/10/23 2:20 pm Transcribed By: MIGDALIA Transcribed Date/Time: 05/10/23 2:20 pm * Exam Date Time Procedure Performing Provider Status 05/10/23 1:[address] Angio Head Hyperacute Stroke Dany Garcia (Verified) Notes: (CT Angio Head Hyperacute Stroke) Reason For Exam: Stroke;Other: RESULT: CT Angio Head Hyperacute Stroke CT Angio Head Hyperacute Stroke, CT Angio Neck Hyperacute Stroke Reason: Other:; Stroke; Clinical Question(s): Other:; Hematoma Aneurysm / Other: TECHNIQUE: CT angiogram of the head and neck was performed after bolus administration of intravenous contrast. 100 mL of Omnipaque 300 was administered intravenously. Coronal and sagittal MIP reformatted images were obtained. Additional 3-D images were created on a separate workstation under concurrent supervision by the attending radiologist. All stenoses are measured using NASCET criteria. Weight-based protocol using automatic tube modulation was used to optimize exposure parameters. RADIATION DOSE PARAMETERS: CTDIvol Body: 16.43 mGy, DLP Body: 616 mGy*cm. CTDIvol Head: 46.80 mGy, DLP Head: 774 mGy*cm. COMPARISON: Noncontrast CT head performed concurrently. FINDINGS: There is a 3 vessel arch. The supraaortic proximal great neck vessels appear normal in caliber and appearance. No hemodynamically significant stenosis. The right common carotid artery is normal in caliber. The right carotid bulb is normal. The right proximal ICA shows 0% stenosis by NASCET criteria. The left common carotid artery is normal in caliber. The left carotid bulb is normal. The left proximal ICA shows 0% stenosis by NASCET criteria. Right vertebral artery: Slightly dominant. Patent without stenosis. Left vertebral artery: Patent without stenosis. Cervical spine: No acute pathology. Multiple levels of cervical spondylosis Soft tissues and lung apices: The visualized upper lungs are clear. Bilateral thyroid lobes are normal. There is no definite abnormality throughout the soft tissue neck. [place]: Concurrent CT of head showed no acute pathology. Generalized volume loss and periventricular hypodensities are noted. Status post bilateral lens extractions. Bilateral internal carotid arteries at the skull base have mural calcifications. No definite stenosis is seen. The right posterior communicating artery is visualized. An infundibulum is seen at origin of the posterior communicating artery . Bilateral ACAs, MCAs and their branches are patent. No stenosis or vessel cut off is seen. No definite aneurysm is noted. Bilateral intracranial vertebral arteries show no definite stenosis. The vertebrobasilar junction is normal. The basilar artery is patent. No stenosis or dissection is seen. There is no basilar tip aneurysm. Bilateral truck driver and their branches are patent. The superior sagittal sinuses, the straight sinus, bilateral transverse and sigmoid sinuses: Patentwithout dural sinus thrombosis. IMPRESSION: No cutoff or high-grade stenosis of the major branches of the intracranial arteries. No aneurysm, stenosis, or vascular malformations present. The right proximal internal carotid artery show no significant stenosis by NASCET criteria. The left proximal internal carotid artery show no significant stenosis by NASCET criteria. The right cervical vertebral artery shows no significant stenosis. The left cervical vertebral artery shows no significant stenosis. REFERENCE: NASCET Criteria: The degree of internal carotid stenosis is based on NASCET Criteria: Normal: No stenosis Mild: Less than 50% stenosis Moderate: 50-69% stenosis Severe: 70-99% stenosis Total occlusion: No detectable patent lumen. The report was cortext to Dr. Mayito Wayne at 2:15 PM on 05/10/2023. WSN: [id number] Ordering Physician: Mayito Wayne Dictated By: Tunde Sosa MD Dictated Date/Time: 05/10/23 2:20 pm Reviewed By: Tunde Sosa MD Signed By: Tunde Sosa MD Signed Date/Time: 05/10/23 2:20 pm Transcribed By: MIGDALIA Transcribed Date/Time: 05/10/23 2:20 pm * Exam Date Time Procedure Performing Provider Status 05/10/23 1:[address] Head-Hyper Acute Stroke Temi Garcia; Auth (Verified) Notes: (CT Head-Hyper Acute Stroke) Reason For Exam: Neuro deficit, acute, stroke suspected;Other: RESULT: CT Head-Hyper Acute Stroke CT Head-Hyper Acute Stroke INDICATION: Reason: Other:; Neuro deficit, acute, stroke suspected; Clinical Question(s): Other:; Hematoma Infarction TECHNIQUE: Noncontrast head CT using axial technique and reconstructed in axial and coronal planes.Iterative reconstruction techniques are used to optimize dose and image quality. COMPARISON: 03/03/2023 FINDINGS: The visualized sinuses are free from disease. Diffuse prominence of the ventricular system and subarachnoid spaces is seen, consistent with age-appropriate volume loss. A minimal degree of periventricular and deep subcortical white matter low-attenuation is noted, consistent with chronic small vessel ischemic change. There is no intracranial hemorrhage, mass effect, or midline shift. No intra or extra axial fluid collections are identified. The osseous structures are unremarkable. IMPRESSION: There is no acute intracranial abnormality. WSN: [id number] Ordering Physician: Mayito Wayne Dictated By: Yu Handley MD Dictated Date/Time: 05/10/23 1:51 pm Reviewed By: Yu Handley MD Signed By: Yu Handley MD Signed Date/Time: 05/10/23 1:51 pm Transcribed By: MIGDALIA Transcribed Date/Time: 05/10/23 1:50 pm Vital Signs Most recent to oldest [Reference Range]: 1 2 3 Height 182 cm (05/17/23 3:05 AM) 182 cm (05/17/23 12:06 AM) 182 cm (05/16/23 7:41 PM) Weight 79.0 kg (05/11/23 4:24 PM) Oxygen Saturation [94-100 %] 94 % (05/17/23 3:00 PM) 99 % (05/17/23 11:00 AM) 100 % (05/17/23 7:00 AM) Pulse Rate [55-90 bpm] 86 bpm (05/17/23 3:00 PM) 83 bpm (05/17/23 11:00 AM) 88 bpm (05/17/23 9:26 AM) Body Mass Index [18.5-24.99 kg/m2] 23.85 kg/m2 (05/11/23 4:24 PM) Blood Pressure [90-138/55-84 mm Hg] 116/78mm Hg (05/17/23 3:00 PM) 122/85mm Hg (05/17/23 11:00 AM) 123/79mm Hg (05/17/23 9:26 AM) Respiratory Rate [16-30 br/min] 18 br/min (05/17/23 3:00 PM) 18 br/min (05/17/23 11:00 AM) 18 br/min (05/17/23 7:00 AM) Temperature [96.8-100.4 DegF] 98 DegF (05/17/23 3:00 PM) 98.2 DegF (05/17/23 11:00 AM) 97.3 DegF (05/17/23 7:00 AM) Mode of Delivery (Oxygen) Room air (05/17/23 3:00 PM) Room air (05/17/23 11:00 AM) Room air (05/17/23 7:00 AM) Blood pressure sites Arm, left (05/17/23 7:00 PM) Arm, left (05/17/23 3:00 PM) Arm, left (05/17/23 11:00 AM) Temperature Route Oral (05/17/23 3:00 PM) Oral (05/17/23 11:00 AM) Oral (05/17/23 7:00 AM) Dry Weight 91 kg (05/11/23 4:24 PM) Social History Social History Type Response Smoking Status Never (less than 100 in lifetime) entered on: 07/22/22 Sex Male Admission evaluation note * Barbara GIBBONS, Holley Pierce: MODIFY, MODIFY, MODIFY, MODIFY, MODIFY, MODIFY, PERFORM, MODIFY, MODIFY, MODIFY, MODIFY, MODIFY Event Display: Admission Note Authored Date: [id number] Patient: ??MACK ALY ? Age:??77 Years?Sex:??Male?:??1945?? Chief Complaint/Reason for Consultation pt coming from home, visiting nurse reports pt had witnessed episode of unresponsiveness while sitting in wheelchair-no trauma. on EMS arrival pt had a R sided facial droop-resolved. pt has dementia,unable to follow commands. History of Present Illness The patient is a 77 year old male with??past medical history of??dementia,??hypertension, diabetes,type 2, atrial fibrillation, chronic kidney disease, stage III, occasional tremors, cerebral amyloid angiopathy, brain bleeds; who is presenting from home to the ED for sudden onset weakness,??right sided facial droop.?? Due to patient's dementia, he is unable to contribute to the history.?History is obtained from patient's and daughter who are at bedside as well as ED provider note. ??[facility] at home reported patient appeared pale, diaphoretic, was unable to obtain BP at that time. Patientbecame unresponsive shortly afterwards, with pulses intact. On EMS arrival, patient found to be unresponsive and unarousable (for approximately 10- 15 minutes total). Patient then became responsive within ~5 mins in EMS care. EMS reports patient had significant right sided facial droop while in their care. Per patient's , patient was acting strange lately, but attributed this to patient feeling tired. Last BP 88/63, POC 136 prior to their arrival. EMS denies history of any recent trauma, head strikes. The patient was found sitting in his wheelchair. Last known well time 15 minuets prior to EMS??arrival. ??Not on any anticoagulation. On ED presentation, patient's??right sided facial droop appears to have resolved. During my evaluation, patient is unable to participate in interview.? In the ED, the patient is afebrile??and initially hypotensive with?? BP 85/55.?? Blood pressure has remained soft with systolic in the upper 90s, low 100s.?EKG shows AF, controlled rate.?CTof the head is nonacute.?? CTA of the head and neck shows no LVO or high grade stenosis.?CXR is nonacute.?? Laboratory data is significant for glucose 126, Bun/Cr 47/2.3. HS troponin is 192->146.?? The patient was seen by neurology?? for concern of acute stroke.?? As patient's symptoms had resolved by the time he was seen,?? and patient also has a history of cerebral amyloid angiopathy, there was no role for TNK and there was no LVO for neuro endovascular intervention.?? The patient is admitted for syncope. Review of Systems ROS limited due to patient's dementia, unable to answer questions. Objective Vital Signs?? Temperature: 97.3 DegF (05/10/23 19:53:00) Temperature Route: Axillary (05/10/23 19:53:00) Pulse Rate: 77 bpm (05/10/23 19:53:00) Respiratory Rate: 18 br/min (05/10/23 23:08:00) Systolic Blood Pressure: 97 mm Hg (05/10/23 23:08:00) Diastolic Blood Pressure: 73 mm Hg (05/10/23 23:08:00) Blood pressure sites: Arm, left (05/10/23 19:53:00) Mean Arterial Pressure: 81 mm Hg (05/10/23 23:08:00) Pulse Pressure: 24 mm Hg (05/10/23 23:08:00) Oxygen Saturation: 98 % (05/10/23 23:08:00) Mode of Delivery (Oxygen): Room air (05/10/23 23:08:00) Early Warning Score: 4 (05/10/23 23:08:38) ? Intake/Output? No Data Available ?? NIH Stroke Scale Level of Consciousness for Stroke Scale: Alert (05/10/23 14:43:00) Response Month/Age: Answers neither question correctly (05/10/23 14:43:00) Response Open/Close Eyes: Performs both tasks correctly (05/10/23 14:43:00) Best Gaze: Normal (05/10/23 14:43:00) Visual: No visual loss (05/10/23 14:43:00) Facial Palsy: Normal symmetrical movements (05/10/23 14:43:00) Motor Function Left Arm: Drift (05/10/23 14:43:00) Motor Function Right Arm: Drift (05/10/23 14:43:00) Motor Function Left Leg: Some effort against gravity (05/10/23 14:43:00) Motor Function Right Leg: Some effort against gravity (05/10/23 14:43:00) Limb Ataxia: Absent (05/10/23 14:43:00) Sensory: Normal; no sensory loss (05/10/23 14:43:00) Best Language: Mild to moderate aphasia (05/10/23 14:43:00) Dysarthria NIH Stroke Scale: Normal (05/10/23 14:43:00) Extinction and Inattention: No abnormality (05/10/23 14:43:00) NIH Stroke Scale Score: 9 (05/10/23 14:43:00) ? Physical Exam Constitutional: Alert, in no distress. Mental Status: Oriented to person. Head: Normocephalic. Eyes: Pupils are equal, round and reactive to light. Extraocular muscles intact. Ear, Nose and Throat: Oropharynx clear, mucous membranes moist. Ears and nose without masses, lesions or deformities. Trachea midline. Neck: Supple, Full range of motion. Respiratory: Clear to auscultation. No wheezing, rales or rhonchi. Cardiovascular: Irregularly irregular. No murmurs, rubs or gallops. Gastrointestinal: Abdomen soft, non-tender, non-distended. Normal bowel sounds. No pulsatile mass. Genitourinary: No costovertebral angle tenderness. Neurologic: Cranial nerves II-XII grossly intact. No focal neurological deficits. Flexor plantar response. Moves all extremities spontaneously. Sensation intact bilaterally. Skin: No rashes or lesions. No petechiae or purpura.?? Musculoskeletal: No cyanosis or clubbing. No gross deformities. Normal range of motion. Heme/Lymphatics/Immun: Palpation of neck reveals no swelling or tenderness of neck nodes. Psychiatric: Normal mood and affect Assessment/Plan Assessment:??The patient is a 77 year old male with past medical history of dementia, hypertension,diabetes, type 2, atrial fibrillation, chronic kidney disease, stage III, occasional tremors, cerebral amyloid angiopathy, brain bleeds; who is presenting from home to the ED for sudden onset weakness, right sided facial droop. Due to patient's dementia, he is unable to contribute to the history. History is obtained from patient's and daughter who are at bedside as well as ED provider note. [facility]NA at home reported patient appeared pale, diaphoretic, was unable to obtain BP at that time. Patient became unresponsive shortly afterwards, with pulses intact. On EMS arrival, patient found to be un responsive and unarousable (for approximately 10-15 minutes total). Patient then became responsive within ~5 mins in EMS care. EMS reports patient had significant right sided facial droop while in their care. Per patient's , patient was acting strange lately, but attributed this to patient feeling tired. Last BP 88/63, POC 136 prior to their arrival. EMS denies history of any recent trauma,head strikes. The patient was found sitting in his wheelchair. Last known well time 15 minuets prior to EMS arrival. Not on any anticoagulation. On ED presentation, patient's right sided facial droopappears to have resolved. During my evaluation, patient is unable to participate in interview. ?? In the ED, the patient is afebrile and initially hypotensive with BP 85/55. Blood pressure has remained soft with systolic in the upper 90s, low 100s. EKG shows AF, controlled rate. CT of the head isnonacute. CTA of the head and neck shows no LVO or high grade stenosis. CXR is nonacute. Laboratorydata is significant for glucose 126, Bun/Cr 47/2.3. HS troponin is 192->146. The patient was seen by neurology for concern of acute stroke. As patient's symptoms had resolved by the time he was seen and patient also has history of cerebral amyloid angiopathy, there was no role for TNK and there was no LVO for neuro endovascular intervention. The patient is admitted for syncope. ?? Syncope: Hypotension: Unresponsiveness: Sudden weakness, right??facial droop. History of cerebral amyloid angiopathy, brain bleeds. 77 year old male with past medical history of dementia, hypertension, hyperlipidemia, diabetes, type 2, atrial fibrillation, chronic kidney disease, stage III, occasional tremors, cerebral amyloid angiopathy, brain bleeds;?? is presenting from home to the ED for sudden onset weakness, right sided facial droop in the setting of hypotension. In the ED, the patient is afebrile and initially hypotensive with BP 85/55. Blood pressure has remained soft with systolic in the upper 90s, low 100s. EKG shows AF, controlled rate. CT of the head is nonacute. CTA of the head and neck shows no LVO or high grade stenosis. CXR is nonacute. HS troponin is 192->146. The patient was seen by neurology for concern of acute stroke. As patient's symptoms had resolved by the time he was seen, in addition to history of CAA, ??there was no role for TNK and there was no LVO for neuro endovascular intervention.?? Neurology has signed off. The patient is admitted for syncope., likely due to hypotension/dehydration.?? Patient responded well to IVF. -Neurology recommendations appreciated. -Continue telemetry. -Trend troponin. -Consider EEG if symptoms recur. -Encourage oral intake. -Will give gentle hydration. -Continue ASA 81 mg . ?? Hypertension: -Patient takes Diltiazem and metoprolol.?? Will continue home meds with adjustment due to hypotension. -Will decrease??metoprolol??to 25??mg BID. -Continue diltiazem with holding parameters. ?? Atrial fibrillation: -Continue diltiazem (with holding parameters)??and metoprolol 25 mg bid -Only on ASA?? due to history of cerebral amyloid angiopathy. ?? Diabetes: -Hold glipizide. -Monitor glucose POC before meals and HS. -Cover meals with ISS, -Hypoglycemic ER measures. ?? Chronic Kidney Disease: Creatinine bumped to 2.3 from previous ( 1.3) -Will give gentle hydration. -Avoid nephrotoxic medications. -Will monitor kidney function. ?? Diet: Cardiac diabetic. ?? DVT prophylaxis: Pneumatic compression boots. ?? Code Status:?? Presumed full code. ?? Discharge Planning:?? -D'c home in 2-3 days. ? Histories Allergies Allergies ?(Active and Proposed Allergies Only) NKA? (Severity: Unknown severity, Onset: Unknown) ? Past Medical History/Problem List Active Problems??(14) Atrial fibrillation Cataract Chronic kidney disease (CKD), stage III (moderate) Dementia Gout Hereditary cerebral amyloid angiopathy History of fall HTN (hypertension) Occasional tremors ENEDINA (obstructive sleep apnea) Periorbital hematoma of left eye Senile purpura T2DM (type 2 diabetes mellitus) Tinea cruris ? Past Surgical History None ? Social History Alcohol Details:??Use: Never. Employment/School Details:??Status: Retired. Exercise Details:??Self assessment: Fair condition. Home/Environment Details:??Living situation: Home/Independent. ??Lives with: Spouse. Nutrition/Health Details:??Diet: Regular. Sexual Details:??Gender identity: Identifies as male. Substance Abuse Details:??Use: Never. Tobacco Details:??Use: Never (less than 100 in lifetime). Electronic Cigarette/Vaping Details:??Electronic Cigarette Use: Never. ? Psychosocial History ? Family History Father (): Heart attack Sister (): Stroke Brother: Parkinson disease ? Medications Home Medications Acetaminophen (acetaminophen 325 mg oral tablet)?975?Milligram?By Mouth?3 times a day?as needed?FEVER >100.5 Allopurinol (allopurinol 300 mg oral tablet)?300?Milligram?1?tablet?By Mouth?Daily Diltiazem (diltiazem 180 mg/24 hours oral capsule, extended release)?180?Milligram?1?capsule?By Mouth?Daily Durable Medical Equipment (Wheelchair with high back and lay's back)?See Instructions?Wheelchair with high back and lay's backdx history of fall Z91.81 GlipiZIDE (glipiZIDE 5 mg oral tablet)?TAKE 1 TABLET BY MOUTH TWICE A DAY Lactulose (lactulose 10 gm/15 ml oral syrup)?30?Milliliter?20?gram?By Mouth?Daily Lisinopril (lisinopril 2.5 mg oral tablet)?2.5?Milligram?1?tablet?By Mouth?Daily Melatonin (melatonin 3 mg oral tablet)?3?Milligram?By Mouth?Daily at bedtime?as needed?Insomnia Metoprolol (metoprolol 50 mg oral tablet, extended release)?50?Milligram?1?tablet?ByMouth?Daily Metoprolol (Metoprolol Tartrate 50 mg oral tablet)?1?tab(s)?50?Milligram?By Mouth?2 times a day Polyethylene Glycol 3350 (MiraLax Powder)?1?pack/packet?17?gram?By Mouth?Daily Quetiapine (SEROquel 25 mg oral tablet)?See Instructions?as needed?0.5 tablet By Mouth daily at bedtime; 2 times a day as needed for agitation?Anxiety Senna (Senna 8.6 mg oral tablet)?8.6?Milligram?1?tab(s)?By Mouth?Daily?as needed?as needed for constipation Senna (Senna 8.6 mg oral tablet)?17.2?Milligram?2?tab(s)?By Mouth?Daily at bedtime Sertraline (sertraline 25 mg oral tablet)?TAKE 1 TABLET BY MOUTH EVERY DAY Simethicone (simethicone 80 mg oral tablet, chewable)?80?Milligram?1?tablet?Chew?Every 8 hours?as needed?Gas Trazodone (traZODone 50 mg oral tablet)?TAKE 1 TABLET BY MOUTH AT BEDTIME NEEDED FOR INSOMNIA ? Inpatient Medications Medications (15) Active SCHEDULED: (6) Allopurinol 300 mg Tablet (allopurinol 300 mg oral tablet) ??300 mg, By Mouth, Daily Aspirin 81 mg EC Tablet (aspirin 81 mg oral delayed release tablet) ??81 mg, By Mouth, Daily Diltiazem 180 mg/24 hour CD Capsule (diltiazem 180 mg/24 hours oral capsule, extended release) ??180 mg, By Mouth, Daily Insulin Lispro 100 units/mL Inj (3mL) (Insulin LISPRO Sliding Scale) ??2-10 units, Subcutaneous Injection, 3 times a day before meals Metoprolol 25mg Tablet (metoprolol 50 mg oral tablet) ??25 mg, By Mouth, 2 times a day NaCl 0.9% Flush 3ml (NaCL 0.9% Flush) ??3 mL, IV Push, Every 8 hours CONTINUOUS: (1) NaCL 0.45% (1000 mL) Cont IV 1,000 mL (NaCL 0.45% 1,000 mL) ??1,000 mL, IV Infusion, 75 mL/hr PRN: (8) Acetaminophen 325 mg Tablet (Acetaminophen Tablet) ??650 mg, By Mouth, Every 4 hours Melatonin 3 mg Tablet (Melatonin Tablet) ??3 mg, By Mouth, Daily at bedtime NaCl 0.9% Flush 3ml (NaCL 0.9% Flush) ??3 mL, IV Push, Every 8 hours Polyethylene Glycol 17 Gm Powder (MiraLax Powder) ??17 Gm 1 pack/packet, By Mouth, Daily Quetiapine 25 mg Tablet (SEROquel 25 mg oral tablet) ??125 mg, By Mouth, Daily at bedtime Senna 8.6 mg / Docusate 50 mg tablet (Docusate/Senna Tablet) ??1 tablet, By Mouth, 2 times a day Senna Tablet (Senna 8.6 mg oral tablet) ??8.6 mg 1 tablet, By Mouth, Daily Trazodone 50 mg Tablet (traZODone 50 mg oral tablet) ??25 mg, By Mouth, Daily at bedtime ? Results Recent Labs BLOOD BANK Blood Type B Positive ()?? 05/10/2023 13:35 Antibody Screen Negative ()?? 05/10/2023 13:35 ?? BLOOD COUNT & DIFF WBC 10.9 k/mm3 ()?? 05/10/2023 13:40 RBC 4.73 m/mm3 ()?? 05/10/2023 13:40 Hgb 15.1 Gm/dL ()?? 05/10/2023 13:40 Hct 45.9 % ()?? 05/10/2023 13:40 MCV 97.0 femtoliters (High)?? 05/10/2023 13:40 MCH 31.9 pg ()?? 05/10/2023 13:40 MCHC 32.9 g/dL (Low)?? 05/10/2023 13:40 Platelet Count 268 k/mm3 ()?? 05/10/2023 13:40 RDW-SD 46.2 femtoliters ()?? 05/10/2023 13:40 MPV 10.0 femtoliters ()?? 05/10/2023 13:40 Nucleated RBC (Automated) 0.0 #/100 WBC'S ()?? 05/10/2023 13:40 Abs. NRBC 0.0 k/mm3 ()?? 05/10/2023 13:40 Abs. Neut 7.3 k/mm3 (High)?? 05/10/2023 13:40 Abs. Lymph 2.0 k/mm3 ()?? 05/10/2023 13:40 Abs. [place] 1.1 k/mm3 ()?? 05/10/2023 13:40 Abs. Eo 0.4 k/mm3 ()?? 05/10/2023 13:40 Abs. Baso 0.1 k/mm3 ()?? 05/10/2023 13:40 Neut % 66.9 % ()?? 05/10/2023 13:40 Lymph % 18.4 % ()?? 05/10/2023 13:40 [place] % 9.9 % ()?? 05/10/2023 13:40 Eos % 3.3 % ()?? 05/10/2023 13:40 Baso % 0.8 % ()?? 05/10/2023 13:40 Imm Gran 0.7 % ()?? 05/10/2023 13:40 Abs. Imm Gran 0.1 k/mm3 ()?? 05/10/2023 13:40 ?? CARDIAC High Sensitivity Troponin (HSTnT) 146 ng/L (Critical)?? 05/10/2023 16:44 ?? CHEM GENERAL Sodium 135 mmol/L ()?? 05/10/2023 13:40 Potassium 5.0 mmol/L ()?? 05/10/2023 13:40 Chloride 97 mmol/L (Low)?? 05/10/2023 13:40 Bicarbonate Level 25 mmol/L ()?? 05/10/2023 13:40 Anion Gap 13 ()?? 05/10/2023 13:40 Glucose Level 126 mg/dL (High)?? 05/10/2023 13:40 Glucose, POC 184 mg/dL (High)?? 05/10/2023 13:27 BUN 47 mg/dL (High)?? 05/10/2023 13:40 Creatinine-Blood 2.3 mg/dL (High)?? 05/10/2023 13:40 Estimated GFR Creatinine 29 ML/MIN/1.73 M2 ()?? 05/10/2023 13:40 Calcium 10.4 mg/dL ()?? 05/10/2023 13:40 AST (SGOT) 18 units/L ()?? 05/10/2023 13:40 ?? COAG INR 1.0 ()?? 05/10/2023 13:40 Protime (PT) 10.3 seconds ()?? 05/10/2023 13:40 APTT 25.5 seconds ()?? 05/10/2023 13:40 ?? UA/URINALYSIS Appear/Color, Urine YELLOW ()?? 05/10/2023 17:15 Specific [place], Urine 1.034 (High)?? 05/10/2023 17:15 pH, Urine 5.5 ()?? 05/10/2023 17:15 Albumin, Urine 1+ (Abnormal)?? 05/10/2023 17:15 Glucose, Urine NEGATIVE ()?? 05/10/2023 17:15 Ketones, Urine NEGATIVE ()?? 05/10/2023 17:15 Bilirubin, Urine NEGATIVE ()?? 05/10/2023 17:15 Hemoglobin, Urine 2+ (Abnormal)?? 05/10/2023 17:15 Nitrite, Urine NEGATIVE ()?? 05/10/2023 17:15 Leukocyte, Urine 3+ (Abnormal)?? 05/10/2023 17:15 Urobilinogen NORMAL mg/dL ()?? 05/10/2023 17:15 WBC's, Urine >182 /HPF (High)?? 05/10/2023 17:15 RBC's, Urine 157 /HPF (High)?? 05/10/2023 17:15 Bacteria HEAVY HPF (Abnormal)?? 05/10/2023 17:15 WBC Clumps SLIGHT /HPF ()?? 05/10/2023 17:15 Hold Urine Culture Testing available 48 hours from time of collection. ()?? 05/10/2023 17:15 ?? VIROLOGY COVID-19 by RT-PCR NEGATIVE ()?? 05/10/2023 16:15 ? EKG study * Event Display: ECG 12-Lead Authored Date: Please click on pdf link to open report * Event Display: ECG 12-Lead Authored Date: Ventricular Rate: 95 BPM QRS Duration: 84 ms Q-T Interval: 372 ms QTC Calculation(Bazett): 467 ms R [place]: 30 degrees T [place]: 59 degrees Atrial fibrillation Cannot rule out Anterior infarct , age undetermined Abnormal ECG When compared with ECG of 10-MAY-2023 13:55, No significant change was found Confirmed by KENYATTA CRUM MD ([id number]) on 05/11/2023 9:18:24 AM [place]: KENYATTA CRUM MD * Event Display: ECG 12-Lead Authored Date: Please click on pdf link to open report * Event Display: ECG 12-Lead Authored Date: Ventricular Rate: 77 BPM QRS Duration: 88 ms Q-T Interval: 412 ms QTC Calculation(Bazett): 466 ms R [place]: 63 degrees T [place]: 60 degrees Baseline artifact Atrial fibrillation Low voltage QRS Abnormal ECG When compared with ECG of 03-MAR-2023 04:09, Vent. rate has decreased BY 48 BPM Questionable change in QRS axis Confirmed by KENYATTA CRUM MD ([id number]) on 05/10/2023 2:09:14 PM [place]: DIANA CRUM MDAL Cardiology * Event Display: Cardiac Rhythm Strips Authored Date: Hospital Progress note * George Alonso RN: VERIFY, SIGN, PERFORM Event Display: Progress Note Hospital Authored Date: [id number] Patient: MACK ALY Age: 77 years Sex: Male : 1945 Associated Diagnoses: None Author: George Alonso RN Findings Nursing Data Vital Signs : VITAL SIGNS SECTION 05/17/2023 15:00 EDT Temperature 98 DegF Temperature Route Oral Pulse Rate 86 bpm Respiratory Rate 18 br/min Systolic Blood Pressure 116 mm Hg Diastolic Blood Pressure 78 mm Hg Blood pressure sites Arm, left Pulse Pressure 38 mm Hg Oxygen Saturation 94 % Mode of Delivery (Oxygen) Room air . Narrative/Incidental No acute events. Patient awake and alert to self, calm & cooperative, following commands, answering simple questions appropriately. Medications administered per orders. Denies pain, resting comfortably. Eating and eliminating without difficulty, moved bowels. Vitals stable on room air. No signsof distress. Patient safety maintained. Awaiting discharge to rehab facility.. * Mynor Moore RN: PERFORM, SIGN, VERIFY Event Display: Progress Note Hospital Authored Date: Patient: MACK ALY Age: 77 years Sex: Male : 1945 Associated Diagnoses: None Author: Mynor Moore RN Findings Problem Related to Alteration in Cardiac Function (new) : Alteration in Cardiac Function/new 05/16/2023 19:00 EDT Alteration in Cardiac Status Related to Syncope, Other: hypotension Goals & Outcomes, Cardiac Status Pt will resume/maintain adequate cardiac output, Pt will resume/maintain adequate hemodynamic status, Pt will resume/maintain adequate respiratory function, Pt will resume/maintain intact neuro function, Pt will maintain adequate GI/ function appropriate for pt, Pt will maintain adequate nutrition status, Pt/caregiver will state understanding of diagnosis, Pt/caregiver will state strategies to reduce risk factors Cardiac Interventions Implemented Assess/monitor cardiac status, Assess/monitor neuro status, Assess/monitor respiratory status, Assess for tolerance of IV infusions; verify rate & dose BH Goals/Interventions, Cardiac Yes Cardiac, Problem Start 05/11/2023 17:49 Reviewed Plan with, Cardiac Status Patient Patient Progression, Cardiac Status Patient progressing according to plan . Evaluation Patient alert, confused, spitting out bedtime mediations, refusing to hae blood sugar and vital signs assessed, able to redirect. VSS, on Room-air, telemetry: afib, rate contontrolled. Bed in lowest position, bed alarm activated, please see CIS for further assessments and documentation. . Discharge Information Rehabilitation Discharge : Rehab Discharge Index 05/12/2023 8:29 EDT Comments on treatment indicated 77 y/o male presenting from home to the ED for unresponsiveness, sudden onset weakness, right sided facial droop in the setting of hypotension. See for transfers, gait, therex and balance. Rehab vs home with 24hr assist (Modified) Distance pt will ambulate ~3' from bed>chair with RW and fair balance Full chart review completed Yes Plan of care PT Gait training, Transfer training, Therapeutic exercise, Functional Activities, Balance training * Nicky Chopra MD: MODIFY, PERFORM Event Display: Progress Note Hospital Authored Date: Patient: ??MACK ALY ? Age:??77 Years?Sex:??Male?:??1945?? Subjective Oriented to self only. ??Lethargic at times. ??Started on fluids in weekend. Continues to refuse medications at times. ingredient scaler helper came to visit patient. ??Blood pressure is 120s today. ??Was soft 2 nights ago. ??Creatinine has improved to 1.5. ??Patient has been refusing p.m. medications including mirtazapine. received 3d abx for UTI ?? RN and said he ate better in day today and is overall calmer, got restless around 430, calmed down with present interested in facility talked again about dehydration, afib, bp, uti ?? pt was awake alert looking at tv denied pain talking tangentially in disorganized way about a person climbing and gesturing at wall, went along with it and did not challenge him so it was a positive interaction ?? Review of Systems unreliable due to delirium/dementia?? Objective Vitals & Measurements T:??98.5?F?? TMIN:??98.3?F?? TMAX:??98.9?F?? HR:??107??(Peripheral)?? RR:??18?? BP:??104/61?? SpO2:??95%?? Physical Exam CAM??neg ?? Gen - alert, NAD looking at tv HEENT - anicteric sclera Cardiovascular - irregular Respiratory - CTAB Gastrointestinal - soft, NT/ND, BS+ Neuro - alert, speech is disorganized, gives yes/no answers to some questions Psy - calm, disorganized/tangential speech Lab Results Test Name Test Result Date/Time Sodium 135 mmol/L 05/16/2023 00:45 EDT Potassium 4.3 mmol/L 05/16/2023 00:45 EDT Chloride 103 mmol/L 05/16/2023 00:45 EDT Bicarbonate Level 19 mmol/L 05/16/2023 00:45 EDT Anion Gap 13 05/16/2023 00:45 EDT Glucose Level 124 mg/dL 05/16/2023 00:45 EDT Glucose, POC 182 mg/dL 05/16/2023 17:01 EDT Glucose, POC 215 mg/dL 05/16/2023 12:54 EDT Glucose, POC 113 mg/dL 05/16/2023 07:36 EDT Glucose, POC 132 mg/dL 05/15/2023 21:11 EDT BUN 24 mg/dL 05/16/2023 00:45 EDT Creatinine-Blood 1.5 mg/dL 05/16/2023 00:45 EDT Estimated GFR Creatinine 47 ML/MIN/1.73 M2 05/16/2023 00:45 EDT Calcium 8.4 mg/dL 05/16/2023 00:45 EDT Assessment/Plan ??77-year-old male with past medical history significant for dementia, CAA, type 2 diabetes, atrialfibrillation not on anticoagulation (family stopped aspirin), chronic kidney disease stage III, gout, hypertension, obstructive sleep apnea not compliant with CPAP, who presented for episode of unresponsive, right facial droop. found to have hypotension, ZOHRA. now with rapid afib and possible UTI. meet hurt consulted for?? FTT ?? MIND #high risk for delirium / hypoactive delirium - Likely multifactorial due to - ??age, change in environment, progressive dementia, hypoglycemia/poor p.o. intake, ZOHRA, untreated sleep apnea, underlying PTSD/depression, dementia, UTI, afib - pt with progressive dementia and came in with reduced responsiveness. had some behaviors in day towards staff earlier in admission 05/16-calm, more awake, eating more, s/p uti tx Please try non-pharmacological interventions first for delirium: - frequent reorientation/redirection/reassurance, encourage family visits/calls - adequate control of pain - monitor for urinary retention, constipation - sleep hygiene (bright light in day, dim at night, limit VS checks/interruptions at nighttime) - encourage oral hydration and nutrition, 1:1 feeding, asked to bring home food, liberalize diet, offer sweets/snacks - window side bed if possible - engage during the daytime, so patient sleeps more at night - out of bed to chair during the daytime, ambulate TID with assistance - 1:1 sitter if needed -??please avoid restraints as they worsen delirium -??Please avoid benzos, antihistamines, anticholinergics - trial of mirtazapine for mood/sleep/appetite, moved to 1900 - manage HR, BP ?? #severe progression of dementia, advanced stage, likely vascular, with behaviors #CAA #depression Progressive short-term memory impairment and increasing dependence for ADLs and IADLs, decreasing communication skills and worsening mobility at home. ?? is primary caregiver. has behaviors in evening. poor sleep. shu dependent and now needs help to get up. losing weight, poor po, pocketing food, dehydration episodes. Known to have numerous hemorrhages in the brain bilaterally concerning for cerebral amyloid angiopathy per MRI brain in 2019. 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 also has atrophy and LDWM changes in imaging Has ENEDINA, noncompliant with mask. unlikely now to become compliant. also has depression tsh b12 ok Will need increasing support and supervision with time.??In??February I had discussions with 2 daughters and separately about progression and expectations re: dementia and gave communication tips. discussed about planning care for future with daughters and separately. daughters at the time concerned about 's medication management /picking and choosing meds and also about pt's care at home, they shared has hoarding behaviors and it is very hard for pt to mobilize at home and he was falling.??discussed with??his overall??functional and cognitive decline with today-??this is advanced dementia stage. initiated GOC and??discussed hospice. currently wants him to try??mirtazapine for mood and try rehab. see SW notes-there is open APS case for this??patient. should inform APS when he is discharged. ST [facility]. pt has pocketing of food/meds. likely has dysphagia related to dementia. ?? MEDICATION #Medication management trial mirtazapine 7.5 mg HS for mood/appetite/sleep. i did share with i did not think it will result in a large improvement. moved to 1900 as he is not taking PO meds i told it is??ok to use seroquel 12.5 mg tid prn for agitation/restlessness/to help with sleep. med will not change his insight. it is for comfort purposes and so SHE can sleep as caregiver added on new a1c. given weight loss, poor po, pocketing, advanced dementia would target A1c <8.5or just avoid extremes of high and low sugars. it may not be appropriate to give him glipizide any more at home. ?? last qtc 467 ?? Ensure is not giving him any meds from home - happened in February. risk of low bp and bg ?? MOBILITY #At risk of falls / Recurrent Falls, physical deconditioning used to have recurrent falls in yard and also in home and others needed to pick him up. went to rehab after february and was able to walk but mobility has declined to point he is WC bound at home, needs shu for transfers, gets up with assistance.?? Mobilize as much as possible Monitor skin T&R frequently PT consult recs rehab ?? 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 ??has been struggling with coping with the progression of the disease. We discussed in previous admission pt will need more help with time with advancing dementia and this may involve medication management for behaviors. Pt's was given info on [facility]. We found out [facility].?? has her own??beliefs about??medication??management and is fearful of side effects and has??stopped and started and titrated medications by herself in the past.?? She says that her father got Parkinson's after he was put on Haldol.have??explained to her that that all medications used for behaviors are sedating in nature but may be needed to maintain patient's/other's safety.??she has been using seroquel prn at home since February admission and it helps him sleep at night.?? took him home after rehab in march.??Patient has hadsharp decline in??his mobility, now needs a Shu for transfers and??he has lost a lot of weight and is in fact now pocketing??food/medications.?? He has declined even since when I last saw him in February.?? Discussed advanced stage of??dementia and initiated goals of care discussion with today. encouraged her to accept more help at home??going/think about placing him??in a facility if care needs??are??growing beyond what she can manage.?? says she is managing fine with the Shu lift currently.?? She wants him to try rehab again.?? Agreeable to a trial of mirtazapine for mood/appetite/sleep. ??Does not want [facility] rehab again ?? MATTER MOST #Advanced Directives Health Care Proxy: Cyn Aly/Alma Rivera Code Status:??DNR ?? #Goals of care discussion 05/13-spoke to Cyn??for??20 mins today about GOC.??talked about dementia, CAA and these are progressive conditions. even compared to February admission, pt has declined a lot functionally. eating much less + pocketing food/pills. weight loss is apparent (lost 8% weight just since March). stopped walking,?? now transfer dependent and needs help with getting up. also speaking less,??having problems with constipation, dehydration multiple times, retaining before.??we can certainly trial antidepressant mirtazapine but given he is pocketing do not know if he will take this /other meds consistently.??i shared with her i think he is at final stage of dementia and introduced idea of hospice. ??Talked about potential complications and advanced dementia??like bedsores, infections, UTIs??and continued weight loss. ??She started telling me she does not want him on morphine drip.?? Would want him to pass naturally??and not suffer.?? i said morphine is a med used prn for pain and air hunger and ifhe were at home, she would be giving??meds prn as appropriate. ??Talked about hospice??happening??at home versus in a retirement.?? I said that she should think about hospice when??it does not makesense anymore to??bring him back and forth??to the hospital.?? At some point, it would not make sense to keep bringing him here for IV??fluids.?? She acknowledges that changes in environment??and hospital/ED visits are very difficult for him.?? IV fluids cannot be arranged outpatient??and??IV nutrition will not change??his prognosis??or disease??course.?? She expressed understanding.?? She says that she would like to try rehab??again as next step.?? I did encourage her that??if he goes home, she should consider hiring some help. ?? #Discharge Planning - Please f/u case management for placement and arranging services.??see SW notes too - wants rehab but not [facility] - will try to talk to dtrs ?? Thank you for referral, please page Geriatrics Inpatient Consult Service if we can provide further assistance in patient care. ?? Nicky Chopra MD Geriatrics Attending Pager # [phone] / [facility] Medications Inpatient 0.9% NaCL 1,000 mL, 1000 mL, IV Infusion Acetaminophen Tablet, 650 mg, By Mouth, Every 4 hours, PRN allopurinol 300 mg oral tablet, 300 mg, By Mouth, Daily Dextrose 50% Inj Syringe (25Gm), 12.5 Gm, IV Push Slowly, Every 20 minutes, PRN Dextrose 50% Inj Syringe (25Gm), 25 Gm, IV Push Slowly, Every 15 minutes, PRN diltiazem 180 mg/24 hours oral capsule, extended release, 180 mg, By Mouth, Daily Docusate/Senna Tablet, 1 tablet, By Mouth, 2 times a day, PRN Glucagon Inj, 1 mg, Intramuscular, Once, PRN Glucose Gel, 15 Gm, By Mouth, Every 20 minutes, PRN Glucose Gel, 30 Gm, By Mouth, Every 20 minutes, PRN Insulin LISPRO Sliding Scale, 2-10 units, Subcutaneous Injection, 3 times a day before meals Melatonin Tablet, 3 mg, By Mouth, Daily at bedtime, PRN metoprolol 50 mg oral tablet, 12.5 mg, By Mouth, 2 times a day MiraLax Powder, 17 Gm= 1 pack/packet, By Mouth, Daily, PRN mirtazapine 15 mg oral tablet, 7.5 mg, By Mouth, Daily at bedtime Multivit Therapeutic/Minerals Tablet, 1 tablet, By Mouth, Daily NaCL 0.9% Flush, 3 mL, IV Push, Every 8 hours NaCL 0.9% Flush, 3 mL, IV Push, Every 8 hours, PRN Senna 8.6 mg oral tablet, 8.6 mg= 1 tablet, By Mouth, Daily, PRN thiamine 100 mg oral tablet, 100 mg, By Mouth, Daily Home acetaminophen 325 mg oral tablet, 975 mg, By Mouth, 3 times a day, PRN allopurinol 300 mg oral tablet, 300 mg= 1 tablet, By Mouth, Daily, 1 refills diltiazem 180 mg/24 hours oral capsule, extended release, 180 mg= 1 capsule, By Mouth, Daily, 3 refills lactulose 10 gm/15 ml oral syrup, 20 Gm= 30 mL, By Mouth, Daily melatonin 3 mg oral tablet, 3 mg, By Mouth, Daily at bedtime, PRN metoprolol 25 mg oral tablet, 12.5 mg= 0.5 tablet, By Mouth, 2 times a day MiraLax Powder, 17 Gm= 1 pack/packet, By Mouth, Daily mirtazapine 15 mg oral tablet, 7.5 mg, By Mouth, Daily at bedtime Senna 8.6 mg oral tablet, 8.6 mg= 1 tablet, By Mouth, Daily, PRN Senna 8.6 mg oral tablet, 17.2 mg= 2 tablet, By Mouth, Daily at bedtime SEROquel 25 mg oral tablet, See Instructions, PRN sertraline 25 mg oral tablet simethicone 80 mg oral tablet, chewable, 80 mg= 1 tablet, Chew, Every 8 hours, PRN traZODone 50 mg oral tablet Wheelchair with high back and lay's back, See Instructions * Nav , Nicky: PERFORM Event Display: Progress Note Hospital Authored Date: capacity for medical decisions: Patient is not able to clearly and??consistently communicate choices because??he has??severe dementia, cerebral amyloid angiopathy,??often can only give some simple yes or no??answers but otherwise??disorganized and tangential speech. ??He does not understand??the??medical situation including what??conditions he has or the plan of care, he cannot appreciate??or discuss??risks and benefits of treatment and disposition options, and cannot rationally manipulate information??given to him. ??He lacks capacity for complex medical decisions.?? HCP should be invoked.?? Capacity is decision and time specific??and can change, however in this case??patient has dementia which is a progressive and terminal disease,??and I do not expect him to regain capacity to make complex medical decisions??in the future as well. Note * Maria Eugenia Mascorro DO: MODIFY, PERFORM Event Display: Discharge/Transfer Note Hospital Authored Date: Patient: ??MACK ALY ? Age:??77 Years?Sex:??Male?:??1945?? Patient Information Discharge Location: Primary Care Physician: Ganga Echavarria MD Admit Date/Time: 05/12/23 14:26 Discharge Disposition Discharge Disposition: [facility] Facility[facility]Rehab Discharge Diagnosis Hypotension (I95.9) Syncope (R55) Polypharmacy _ Discharge Medications Acetaminophen (acetaminophen 325 mg oral tablet)?975?Milligram?By Mouth?3 times a day?as needed?FEVER >100.5 Allopurinol (allopurinol 300 mg oral tablet)?300?Milligram?1?tablet?By Mouth?Daily Diltiazem (diltiazem 180 mg/24 hours oral capsule, extended release)?180?Milligram?1?capsule?By Mouth?Daily Durable Medical Equipment (Wheelchair with high back and lay's back)?See Instructions?Wheelchair with high back and lay's backdx history of fall Z91.81 Lactulose (lactulose 10 gm/15 ml oral syrup)?30?Milliliter?20?gram?By Mouth?Daily Melatonin (melatonin 3 mg oral tablet)?3?Milligram?By Mouth?Daily at bedtime?as needed?Insomnia Metoprolol (metoprolol 25 mg oral tablet)?12.5?Milligram?0.5?tablet?By Mouth?2 times a day Mirtazapine (mirtazapine 15 mg oral tablet)?7.5?Milligram?By Mouth?Daily at bedtime Polyethylene Glycol 3350 (MiraLax Powder)?1?pack/packet?17?gram?By Mouth?Daily Quetiapine (SEROquel 25 mg oral tablet)?See Instructions?as needed?0.5 tablet By Mouth daily at bedtime; 2 times a day as needed for agitation?Anxiety Senna (Senna 8.6 mg oral tablet)?8.6?Milligram?1?tab(s)?By Mouth?Daily?as needed?as needed for constipation Senna (Senna 8.6 mg oral tablet)?17.2?Milligram?2?tab(s)?By Mouth?Daily at bedtime Sertraline (sertraline 25 mg oral tablet)?TAKE 1 TABLET BY MOUTH EVERY DAY Simethicone (simethicone 80 mg oral tablet, chewable)?80?Milligram?1?tablet?Chew?Every 8 hours?as needed?Gas Trazodone (traZODone 50 mg oral tablet)?TAKE 1 TABLET BY MOUTH AT BEDTIME NEEDED FOR INSOMNIA Medications Started Mirtazapine (mirtazapine 15 mg oral tablet)?7.5?Milligram?By Mouth?Daily at bedtime Medications Discontinued lisinopril glipizide Doses Changed none Allergies Allergies ?(Active and Proposed Allergies Only) NKA? (Severity: Unknown severity, Onset: Unknown) ? PCP Follow-Up/Heads-Up Patient came in with altered mental status and concern for acute stroke, his acute stroke work-up was negative.?? Thought the changes were due to hypotension??which??was suspected be due from medications. ??We discontinued his home lisinopril??and his blood pressures??and heart rates improved. also discontinued home glipizide. Future Appointments Tuesday 8:30 AM EDT ?? With: Maria Eugenia Puga DO Where: [facility] [address] [place] [address] [address] [place] [address]- Status: Pending Hospital Course 77 y/o M h/o dementia, hypertension, diabetes, type 2, atrial fibrillation, chronic kidney disease,stage III, occasional tremors, cerebral amyloid angiopathy, brain bleeds; presented with sudden onset weakness, right sided facial droop, hypotension, syncope (per EMS, patient found to be unresponsive and unarousable for 10-[address] of the head without any acute findings.. CTA of the head and neck shows no LVO or high grade stenosis. The patient was seen by neurology for concern of acute stroke. As patient's symptoms had resolved by the time he was seen and patient also has history of cerebral amyloid angiopathy, there was no role for TNK and there was no LVO for neuro endovascular intervention. The patient was admitted for syncope, ZOHRA, poor appetite/ FTT. This EKG was at baseline ratecontrolled A-fib. EKG not impressive. There was concern for hypotension secondary to medications hewas on lisinopril 25, metoprolol 12.5, and diltiazem 180 mg daily. He is still to lisinopril was held which resulted in both his blood pressure and heart rate increasing. His home dose of diltiazem was reinitiated on 05/15 and his heart rates improved. Blood pressure stabilized. He was also hypoglycemic on presentation so we will discontinue his home glipizide. His UA was concerning for a UTI and he is status post 4 days of ceftriaxone. ?? Objective Assessment and Plan Acute Hypotension Syncope Hx of hypertension Unresponsiveness:??Resolved Sudden weakness, right??facial droop, resolved History of cerebral amyloid angiopathy, brain bleeds. Low concern for stroke. ??Neurology evaluated. ??No focal neuro deficit.?? CT head/CTA head and neck??no acute pathology??low concern for seizure EKG??baseline atrial fibrillation.?? Rate controlled at this time.?? Troponin??elevated secondary to??acute kidney injury??and??low blood pressure is a stress response.?? Serial troponin downtrending.?? No chest pain.?? 2020 echocardiogram??normal EF We suspect acute hypotension secondary to??medications Pt has been on BP + rate control medications including Lisinopril 25mg daily, Metoprolol 12.5 once daily, and diltiazem XR 180 daily BP somewhat low now. after stopping his dilt and lisinopril 05/12/23, both BP and HR trending up, now HR in the 110s... 05/14: we resumed dilt 120XL, Plan: -??discontinue home lisinopril - Continue metoprolol 12.5 BID -??discontinue glipizide, hypoglycemia may have contributed to his presentation ?? Atrial fibrillation, rate controlled On metoprolol 12.5 BID, Dilt XR 160 at home Was on ASA, stopped by family given risk of bleeds with cerebral amyloid angiopathy Cardiology??discussed about Watchman device however patient and family refused in the past Cardiology will follow-up in office Plan: - Metoprolol 12.5 BID - dilt 180 XR - Hold ASA per family request -??discontinue Lisinopril ?? Dirty UA , possible UTI -resolved Acute kidney injury likely prerenal??in the setting of??concomitant URIEL inhibitor use/low blood pressure and dehydration vs UTI Patient's creatinine improved to??1.4 but now worsened to 1.7 today. UA showing more than 182 WBCs??but urine culture growing??10-50,000 Staphylococcus epidermidis likely contaminant s/p 4 days of CTX ?? Diabetes Type 2 FTT, poor PO intake At risk for hypoglycemia Hx of vascular dementia Subjective Hx of depression Appreciate arabella consult -Discontinue home glipizide -Start mirtazapine??7.5 at night ?? Diet: Dysphagia level 3 thin liquids, may need to liberalize if patient not eating ?? Vital Signs?? Temperature: 98 DegF (05/17/23 15:00:00) Temperature Route: Oral (05/17/23 15:00:00) Pulse Rate: 86 bpm (05/17/23 15:00:00) Respiratory Rate: 18 br/min (05/17/23 15:00:00) Systolic Blood Pressure: 116 mm Hg (05/17/23 15:00:00) Diastolic Blood Pressure: 78 mm Hg (05/17/23 15:00:00) Blood pressure sites: Arm, left (05/17/23 15:00:00) Mean Arterial Pressure: 89 mm Hg (05/17/23 03:05:00) Pulse Pressure: 38 mm Hg (05/17/23 15:00:00) Oxygen Saturation: 94 % (05/17/23 15:00:00) Mode of Delivery (Oxygen): Room air (05/17/23 15:00:00) Early Warning Score: 3 (05/17/23 15:14:35) ? Intake/Output? 05/12 14:26 05/17 07:00 05/16 07:00 05/15 07:00 05/14 07:00 ?? 05/17 15:22 05/17 15:22 05/17 06:59 05/16 06:59 05/15 06:59 Intake ? 8985 ?990 ? 2500 ? 3395 ?480 Output ? 5450 ?0 ?600 ? 1550 ?350 Net Total ? 3535 ?990 ? 1900 ? 1845 ?130 ? Urine Count ?6 ?1 ?1 ?0 ?1 Emesis Count ?2 ?0 ?0 ?0 ?0 . Physical Exam General Appearance: The patient is in NAD. Cardiovascular: RRR S1 and S2 heard with no M/R/G. Respiratory: ??Breath sounds clear to auscultation bilaterally. No wheezing. Good air movement throughout both lungs. GI: Soft. Nontender and nondistended.?? MS: ??No edema or erythema in the lower extremities.?? Neuro: ??No slurred speech. ??Patient seen moving their upper and lower extremities independently. Consultants Nicky Chopra MD - geriatrics Patient Education Titles Discharge Instructions for Low Blood Pressure (Hypotension)?? Follow-Up Appointments Added Follow Up ?Time Frame ?Comments Ganga Echavarria MD?1 to 2 weeks Patient Instructions You came in with concerns of change in mental status.?? Work-up was not concerning for stroke. ??Wesuspect??some of your medicines may have lowered your blood pressure little too much contributing to why you came in.?? We have discontinued your home lisinopril. Results Discharge Labs BLOOD BANK Blood Type B Positive ()?? 05/10/2023 13:35 Antibody Screen Negative ()?? 05/10/2023 13:35 ?? BLOOD COUNT & DIFF WBC 7.5 k/mm3 ()?? 05/15/2023 06:45 RBC 4.63 m/mm3 (Low)?? 05/15/2023 06:45 Hgb 14.8 Gm/dL ()?? 05/15/2023 06:45 Hct 43.7 % ()?? 05/15/2023 06:45 MCV 94.4 femtoliters (High)?? 05/15/2023 06:45 MCH 32.0 pg ()?? 05/15/2023 06:45 MCHC 33.9 g/dL ()?? 05/15/2023 06:45 Platelet Count 173 k/mm3 ()?? 05/15/2023 06:45 RDW-SD 45.8 femtoliters ()?? 05/15/2023 06:45 MPV 10.0 femtoliters ()?? 05/15/2023 06:45 Nucleated RBC (Automated) 0.0 #/100 WBC'S ()?? 05/15/2023 06:45 Abs. NRBC 0.0 k/mm3 ()?? 05/15/2023 06:45 Abs. Neut 7.3 k/mm3 (High)?? 05/10/2023 13:40 Abs. Lymph 2.0 k/mm3 ()?? 05/10/2023 13:40 Abs. Carson 1.1 k/mm3 ()?? 05/10/2023 13:40 Abs. Eo 0.4 k/mm3 ()?? 05/10/2023 13:40 Abs. Baso 0.1 k/mm3 ()?? 05/10/2023 13:40 Neut % 66.9 % ()?? 05/10/2023 13:40 Lymph % 18.4 % ()?? 05/10/2023 13:40 Carson % 9.9 % ()?? 05/10/2023 13:40 Eos % 3.3 % ()?? 05/10/2023 13:40 Baso % 0.8 % ()?? 05/10/2023 13:40 Imm Gran 0.7 % ()?? 05/10/2023 13:40 Abs. Imm Gran 0.1 k/mm3 ()?? 05/10/2023 13:40 ?? CARDIAC High Sensitivity Troponin (HSTnT) 139 ng/L (Critical)?? 05/11/2023 02:53 ? CHEM GENERAL Sodium 135 mmol/L ()?? 05/16/2023 00:45 Potassium 4.3 mmol/L ()?? 05/16/2023 00:45 Chloride 103 mmol/L ()?? 05/16/2023 00:45 Bicarbonate Level 19 mmol/L (Low)?? 05/16/2023 00:45 Anion Gap 13 ()?? 05/16/2023 00:45 Glucose Level 124 mg/dL (High)?? 05/16/2023 00:45 Glucose, POC 187 mg/dL (High)?? 05/17/2023 11:32 Hemoglobin A1C (Monitoring) 6.1 % (High)?? 05/13/2023 08:13 Beta Hydroxybutyrate 0.99 mmol/L (High)?? 05/13/2023 08:10 BUN 24 mg/dL (High)?? 05/16/2023 00:45 Creatinine-Blood 1.5 mg/dL (High)?? 05/16/2023 00:45 Estimated GFR Creatinine 47 ML/MIN/1.73 M2 ()?? 05/16/2023 00:45 Calcium 8.4 mg/dL (Low)?? 05/16/2023 00:45 Magnesium 1.5 mg/dL (Low)?? 05/15/2023 06:45 AST (SGOT) 18 units/L ()?? 05/10/2023 13:40 ? COAG INR 1.0 ()?? 05/10/2023 13:40 Protime (PT) 10.3 seconds ()?? 05/10/2023 13:40 APTT 25.5 seconds ()?? 05/10/2023 13:40 ? HEME OTHER Hold Lavender Top SPECIMEN DISCARDED AFTER 24 HOURS. ()?? 05/16/2023 00:45 ? UA/URINALYSIS Appear/Color, Urine YELLOW ()?? 05/14/2023 06:43 Clarity MARKED TURBIDITY (Abnormal)?? 05/14/2023 06:43 Specific [place], Urine 1.014 ()?? 05/14/2023 06:43 pH, Urine 5.5 ()?? 05/14/2023 06:43 Albumin, Urine 1+ ()?? 05/14/2023 06:43 Glucose, Urine NEGATIVE ()?? 05/14/2023 06:43 Ketones, Urine TRACE (Abnormal)?? 05/14/2023 06:43 Bilirubin, Urine NEGATIVE ()?? 05/14/2023 06:43 Hemoglobin, Urine 1+ (Abnormal)?? 05/14/2023 06:43 Nitrite, Urine NEGATIVE ()?? 05/14/2023 06:43 Leukocyte, Urine 3+ (Abnormal)?? 05/14/2023 06:43 Urobilinogen NORMAL mg/dL ()?? 05/14/2023 06:43 WBC's, Urine >182 /HPF (High)?? 05/14/2023 06:43 RBC's, Urine 81 /HPF (High)?? 05/14/2023 06:43 Bacteria HEAVY HPF (Abnormal)?? 05/14/2023 06:43 Squamous Epith 2 /HPF ()?? 05/14/2023 06:43 WBC Clumps SLIGHT /HPF ()?? 05/14/2023 06:43 Hold Urine Culture Testing available 48 hours from time of collection. ()?? 05/10/2023 17:15 Culture Indication CULTURE INDICATED ()?? 05/14/2023 06:43 ? URINE OTHER Protein, Total Urine Random 34 mg/dL ()?? 05/14/2023 06:43 TP/Cr Ratio 0.34 (High)?? 05/14/2023 06:43 Creatinine, Urine 99.5 mg/dL ()?? 05/14/2023 06:43 Est Creatinine Clearance 44.09 mL/min ()?? 05/16/2023 01:41 ?? VIROLOGY COVID-19 by RT-PCR NEGATIVE ()?? 05/10/2023 16:15 ? 05/10/2023 13:[address] Angio Head Hyperacute Stroke IMPRESSION: ?? No cutoff or high-grade stenosis of the major branches of the intracranial arteries. ??No aneurysm,stenosis, or vascular malformations present.? The right proximal internal carotid artery show no significant stenosis by NASCET criteria. ?? The left proximal internal carotid artery show no significant stenosis by NASCET criteria. ?? The right cervical vertebral artery shows no significant stenosis.? The left cervical vertebral artery shows no significant stenosis.? 05/10/2023 13:[address] Angio Neck Hyperacute Stroke IMPRESSION: ?? No cutoff or high-grade stenosis of the major branches of the intracranial arteries. ??No aneurysm,stenosis, or vascular malformations present.? The right proximal internal carotid artery show no significant stenosis by NASCET criteria. ?? The left proximal internal carotid artery show no significant stenosis by NASCET criteria. ?? The right cervical vertebral artery shows no significant stenosis.? The left cervical vertebral artery shows no significant stenosis.? 05/10/2023 13:[address] Head-Hyper Acute Stroke IMPRESSION: ?? There is no acute intracranial abnormality. ?? Patient discussed with attending physician, Dr. Hamlet Mascorro, DO Internal Medicine PGY2 ?? 30_ minutes spent on discharge * Amanda CALLEJAS, Kody Kaiser: PERFORM Event Display: Discharge/Transfer Note Hospital Authored Date: [id number] Attending Attestation:??I have seen and evaluated this patient. ??I have discussed the case and itsmanagement with the resident and agree with the findings and plan as documented in the resident???snote. This patient was seen today by me at 1343 ?? This note reflects information of which I was aware up until 1700 today. ? He is pretty much stable today though. ??Alone when I saw him.?Somewhat sleepy still at times.??No real complaints or concerns. ??Nothing new going on today.?? He mostly seems pretty confused.?Not really changed apparently??he was not really able to??complain about anything specific. ?? This may be his baseline ? Vital stable.?? Temperature 97 heart rate 89 respiratory rate 18 blood pressure 130/85??O2 sat??100% on room air ?? Lungs clear to auscultation heart exam S1-S2 normal no S3 or S4 See above for other details. ? Blood sugars in the 100s today. ? Assessment plan: Patient has been stable since yesterday. ??He was ready for discharge then but bed was not available.?? Apparently a bed now has been found at rehab. ?? I am told that??his had some??reluctance to this plan but eventually agreed. ?? He will be getting discharged today. ?? No major changes planned for today. ??We will still need ongoing blood pressure monitoring at rehab. ? Please see above for the rest of the details of our assessments and plans. ?? * Paulino Tracey RN: PERFORM, SIGN, VERIFY Event Display: Case Management Discharge Plan Authored Date: [id number] Patient: MACK ALY Age: 77 years Sex: Male : 1945 Associated Diagnoses: None Author: Paulino Tracey RN Discharge Plan Case Management Discharge Plan : Case Management Discharge Plan Data 05/17/2023 14:56 EDT Discharge Level of Care at Discharge [facility] facility Discharge Nursing Homes/Rehab Facilities [facility] Discharge Transportation Arranged [facility] [address] [place] [address] Discharge Arranged Transport Date/Time 05/17/2023 17:00 Mode of Transportation Arranged Ambulance Name of Agency #1 [facility] Service Categories #1 Occupational Therapy, Physical Therapy, [facility] Service Comments #1 Ambulance arranged for 5pm * Susan Ruffin RN: PERFORM Event Display: Patient Education/Instruction Authored Date: [id number] Inpatient Adult Discharge Instructions [address] [address] Name: MACK ALY : 1945 Visit: 05/12/2023 14:26:00 Current Date: 05/17/2023 16:08 Account: [id number] Inpatient Adult Discharge Instructions We would like [...] and their families. Surveys are administered by [employer] ?? If further treatment with your primary care physician or another doctor is recommended, it is important for you to keep the appointment. Call your primary care physician or return to the Emergency Department immediately if your condition worsens, fails to improve, or new symptoms develop. If you need to find a doctor, you can call [facility] for a referral at [phone] or toll free at [phone] ([phone]) or log in to [email or web address] ?? [facility], in keeping with [facility] guidance, no longer requires face masks for staff, patientsor visitors in most situations. Similiar to time spent indoors at other locations, there is the chance that you were exposed to repiratory viruses during your time with us (such as flu or COVID-19). If you develop symptoms concerning for a viral respiratory infection, please seek testing (and treatment if indicated) from your medical provider or home test kit. ?? You can view and manage your care through the patient portal or by using a health care areli of your choosing. [employer] is a website that allows you to securely view your medical information including your hospital discharge summary, office visit summaries, medications and follow-up visits. You can also request appointments, renew medications, and request access to your medical information using a health care areli of your choosing, or just ask a question. You can enroll at [email or web address] or register during your next office visit. You have been discharged from [facility], Patient Care Unit: W4. If you have any questions regarding these instructions after you leave, please call us and we will be happy to assist you. [facility] Your Care Team Attending Physician Amanda CALLEJAS, Kody Kaiser Consulting Providers Nicky Chopra MD Discharging Providers Maria Eugenia Mascorro DO Reason for Admission pt coming from home, visiting nurse reports pt had witnessed episode of unresponsiveness while sitting in wheelchair-no trauma. on EMS arrival pt had a R sided facial droop-resolved. pt has dementia,unable to follow commands. Your Diagnosis Syncope Hypotension Tests Performed Below is a partial list of the tests performed during your hospitalization. You may have had other tests and procedures not included in this list. Please discuss all test results with your provider. AST Basic Metabolic Panel BETA HYDROXYBUTYRATE BUN Calcium Level CBC CBC w/ Differential COVID-19 (Novel Coronavirus), Rapid PCR Creatinine Electrolytes Glucose Level GLUCOSE POC HEMOGLOBIN A1C High??Sensitivity??Troponin T HOLD LAVENDER TUBE Magnesium Level PT (INR) PTT TP/CR RATIO, URINE Troponin T, High Sensitivity Type and Screen UA W/Reflex Culture & Renal Urinalysis w/hold for Urine Culture CT Angio Head Hyperacute Stroke CT Angio Neck Hyperacute Stroke CT Head-Hyper Acute Stroke XR Chest Portable Primary Care Provider Ganga Echavarria MD Advance Directive Health Care Proxy on File Yes - Health Care Proxy Discharge Vitals Temperature: 98 DegF Height: 182 cm Pulse Rate: 86 bpm Weight: 79 kg Respiratory Rate: 18 br/min Body Mass Index: 23.85 kg/m2 Systolic Blood Pressure: 116 mm Hg Body surface area: 2 Diastolic Blood Pressure: 78 mm Hg ?? Oxygen Saturation: 94 % ?? Studies Pending All tests and labs ordered during this hospital stay have been completed unless listed below. Please discuss all pending results with your provider listed above in these instructions. ?? Add On Lab Order What to do next Instructions From Your Doctor You came in with concerns of change in mental status.?? Work-up was not concerning for stroke. ??Wesuspect??some of your medicines may have lowered your blood pressure little too much contributing to why you came in.?? We have discontinued your home lisinopril. Discharge Orders Scheduled Follow-Up Appointments Tuesday 8:30 AM EDT ?? With: Maria Eugenia Puga DO Where: [facility] [address] [place] [address] [address] [place] [address]- Status: Pending You Need to Schedule the Following Appointments Follow Up with??Ganga Echavarria MD When:??Within 1 to 2 weeks Where: [address] [place] [address] [place] [address]- Discharge Medications MACK ALY :1945 Visit Date:05/12/2023 Medications: Please continue your medications until treatment is completed or stopped by your provider. Medications not listed below should be discontinued. Discuss any questions related to medications with your provider. What How Much When Instructions Next Dose New Mirtazapine (mirtazapine 15 mg oral tablet) 7.5 Milligram Oral Daily at Bedtime [facility] Tonight 9pm Changed Metoprolol (metoprolol 25 mg oral tablet) 0.5 tab(s) Oral Twice a day Tonight 9pm Unchanged Acetaminophen (acetaminophen 325 mg oral tablet) 975 Milligram Oral 3 times a day as needed for FEVER >100.5 as needed Unchanged Allopurinol (allopurinol 300 mg oral tablet) 1 tab(s) Oral Daily Wed 9am Unchanged Diltiazem (diltiazem 180 mg/ 24 hours oral capsule, extended release) 1 capsule Oral Daily Wed 9am Unchanged Durable Medical Equipment (Wheelchair with high back and lay's back) See instructions Wheelchair with high back and lay's back dx history of fall Z91.81 ?? Unchanged Lactulose (lactulose 10 gm/ 15 ml oral syrup) 30 Milliliter Oral Daily Tues 9am Unchanged Melatonin (melatonin 3 mg oral tablet) 3 Milligram Oral Daily at Bedtime as needed for Insomnia as needed Unchanged Polyethylene Glycol 3350 (MiraLax Powder) 17 gram Oral Daily Wed 9am Unchanged Quetiapine (SEROquel 25 mg oral tablet) See instructions 0.5 tablet By Mouth daily at bedtime; 2 times a day as needed for agitation, As needed for Anxiety ?? Tonight 9pm Unchanged Senna (Senna 8.6 mg oral tablet) 2 tab(s) Oral Daily at Bedtime Tonight 9pm Unchanged Senna (Senna 8.6 mg oral tablet) 1 tab(s) Oral Daily as needed for as needed for constipation as needed Unchanged Sertraline (sertraline 25 mg oral tablet) TAKE 1 TABLET BY MOUTH EVERY DAY ?? Wed 9am Unchanged Simethicone (simethicone 80 mg oral tablet, chewable) 1 tab(s) Chew Every 8 hours as needed for Gas as needed Unchanged Trazodone (traZODone 50 mg oral tablet) TAKE 1 TABLET BY MOUTH AT BEDTIME NEEDED FOR INSOMNIA ?? as needed [facility] [address], [place] [phone] ?? What When Comments Stop Taking GlipiZIDE (glipiZIDE 5 mg oral tablet) TAKE 1 TABLET BY MOUTH TWICE A DAY ?? Test Results Below is a partial list of the most recent Laboratory test results done prior to this discharge. You may have had other tests and procedures not included in this list. Please discuss all test resultswith your provider. Est Creatinine Clearance - 44.09 mL/min (05/16/2023) AST (05/10/2023) ???AST (SGOT) - 18 units/L Basic Metabolic Panel (05/15/2023) ???Sodium - 133 mmol/L???Potassium - 4.9 mmol/L???Chloride - 100 mmol/L???Bicarbonate Level - 18 mmol/L???Anion Gap - 15???Glucose Level - 193 mg/dL???BUN - 26 mg/dL???Creatinine-Blood - 1.7 mg/dL???Estimated GFR Creatinine - 40 ML/MIN/1.73 M2???Calcium - 9.3 mg/dL BETA HYDROXYBUTYRATE (05/13/2023) ???Beta Hydroxybutyrate - 0.99 mmol/L BUN (05/16/2023) ???BUN - 24 mg/dL Calcium Level (05/16/2023) ???Calcium - 8.4 mg/dL CBC (05/15/2023) ???WBC - 7.5 k/mm3???RBC - 4.63 m/mm3???Hgb - 14.8 Gm/dL???Hct - 43.7 %???MCV - 94.4 femtoliters???MCH - 32.0 pg???MCHC - 33.9 g/dL???Platelet Count - 173 k/mm3???RDW-SD - 45.8 femtoliters???MPV - 10.0 femtoliters???Nucleated RBC (Automated) - 0.0 #/100 WBC'S???Abs. NRBC - 0.0 k/mm3 CBC w/ Differential (05/10/2023) ???WBC - 10.9 k/mm3???RBC - 4.73 m/mm3???Hgb - 15.1 Gm/dL???Hct - 45.9 %???MCV - 97.0 femtoliters???MCH - 31.9 pg???MCHC - 32.9 g/dL???Platelet Count - 268 k/mm3???RDW-SD - 46.2 femtoliters???MPV - 10.0 femtoliters???Nucleated RBC (Automated) - 0.0 #/100 WBC'S???Abs. NRBC - 0.0 k/mm3???Abs. Neut - 7.3 k/mm3???Abs. Lymph - 2.0 k/mm3???Abs. Carson - 1.1 k/mm3???Abs. Eo - 0.4 k/mm3???Abs. Baso - 0.1 k/mm3???Neut % - 66.9 %???Lymph % - 18.4 %???Carson % - 9.9 %???Eos % - 3.3 %???Baso % - 0.8 %???Imm Gran - 0.7 %???Abs. Imm Gran - 0.1 k/mm3 COVID-19 (Novel Coronavirus), Rapid PCR (05/10/2023) ???COVID-19 by RT-PCR - NEGATIVE Creatinine (05/16/2023) ???Creatinine-Blood - 1.5 mg/dL???Estimated GFR Creatinine - 47 ML/MIN/1.73 M2 Electrolytes (05/16/2023) ???Sodium - 135 mmol/L???Potassium - 4.3 mmol/L???Chloride - 103 mmol/L???Bicarbonate Level - 19 mmol/L???Anion Gap - 13 Glucose Level (05/16/2023) ???Glucose Level - 124 mg/dL GLUCOSE POC (05/17/2023) ???Glucose, POC - 187 mg/dL HEMOGLOBIN A1C (05/13/2023) ???Hemoglobin A1C (Monitoring) - 6.1 % High??Sensitivity??Troponin T (05/10/2023) ???High Sensitivity Troponin (HSTnT) - 192 ng/L HOLD LAVENDER TUBE (05/16/2023) ???Hold Lavender Top - SPECIMEN DISCARDED AFTER 24 HOURS. Magnesium Level (05/15/2023) ???Magnesium - 1.5 mg/dL PT (INR) (05/10/2023) ???INR - 1.0???Protime (PT) - 10.3 seconds PTT (05/10/2023) ???APTT - 25.5 seconds TP/CR RATIO, URINE (05/14/2023) ???Protein, Total Urine Random - 34 mg/dL???TP/Cr Ratio - 0.34???Creatinine, Urine - 99.5 mg/dL Troponin T, High Sensitivity (05/11/2023) ???High Sensitivity Troponin (HSTnT) - 139 ng/L Type and Screen (05/10/2023) ???Blood Type - B Positive???Antibody Screen - Negative UA W/Reflex Culture & Renal (05/14/2023) ???Appear/Color, Urine - YELLOW???Clarity - MARKED TURBIDITY???Specific [place], Urine - 1.014???pH, Urine - 5.5???Albumin, Urine - 1+???Glucose, Urine - NEGATIVE???Ketones, Urine - TRACE???Bilirubin, Urine - NEGATIVE???Hemoglobin, Urine - 1+???Nitrite, Urine - NEGATIVE???Leukocyte, Urine - 3+???Urobilinogen - NORMAL? ?WBC's, Urine - >182 /HPF? ?RBC's, Urine - 81 /HPF? ?Bacteria - HEAVY? ?Squamous Epith - 2 /HPF???WBC Clumps - SLIGHT???Culture Indication - CULTURE INDICATED Urinalysis w/hold for Urine Culture (05/10/2023) ???Appear/Color, Urine - YELLOW???Specific [place], Urine - 1.034???pH, Urine - 5.5???Albumin, Urine - 1+???Glucose, Urine - NEGATIVE???Ketones, Urine - NEGATIVE???Bilirubin, Urine - NEGATIVE???Hemoglobin, Urine - 2+???Nitrite, Urine - NEGATIVE???Leukocyte, Urine - 3+???Urobilinogen - NORMAL???WBC's, Urine - >182 /HPF? ?RBC's, Urine - 157 /HPF? ?Bacteria - HEAVY? ?WBC Clumps - SLIGHT? ?Hold Urine Culture - Testing available 48 hours from time of collection. Allergies (NKA means No Known Allergies) NKA Problems Active Problems??(14) Atrial fibrillation?? Cataract?? Chronic kidney disease (CKD), stage III (moderate)?? Dementia?? Gout?? Hereditary cerebral amyloid angiopathy?? History of fall?? HTN (hypertension)?? Occasional tremors?? ENEDINA (obstructive sleep apnea)?? Periorbital hematoma of left eye?? Senile purpura?? T2DM (type 2 diabetes mellitus)?? Tinea cruris?? Education Materials Below is the list of Educational Leaflet Providered with your Discharge Instructions. Discharge Instructions for Low Blood Pressure (Hypotension)?? Valuables and Belongings I fully understand and agree that [facility] accepts no responsibility for all my personal [...] to send valuables and belongings home. ?? Review of Valuable and Belonging List: With patient Date for Pt to Sign Valuables/Belongings: 05/11/23 16:26:00 ?? Other Discharge Information ?? Wound Assessment?? Wound Assessment?? Wound Location I: Knee, right Wound Type I: Skin Tear Wound I, Present on Admission: Yes Wound Location II: Elbow, right Wound Type II: Skin Tear Wound II, Present on Admission: Yes Wound Location III: Wrist, left Wound Type III: Skin Tear Wound III, Present on Admission: Yes ? Case Management Discharge Plan?? Discharge Plan?? Discharge Agency Information?? Discharge Level of Care at Discharge: [facility] facility Name of Agency #1: [facility] Discharge Transportation Arranged: [facility] [address] [facility] ??[phone] Service Categories #1: Occupational Therapy, Physical Therapy, [facility] Mode of Transportation Arranged: Ambulance Service Comments #1: Ambulance arranged for 5pm Discharge Arranged Transport Date/Time: 05/17/23 17:00:00 ?? Discharge Nursing Homes/Rehab Facilities: [facility] ? Pulmonary Rehab Status?? Pulmonary Rehab Discharge Status?? [...] are strongly encouraged to quit. Please call [facility] at [phone] or [phone] ([phone]) or log in to [email or web address] for referrals to smoking cessation programs. ?? 650 Suicide & Crisis Lifeline is available 11/04 if you or someone you know needs to find a reason to keep living. By calling 010 you'll be connected to a skilled, trained counselor at a crisis center in your area. INPATIENT DISCHARGE INSTRUCTIONS SIGNATURE KURTIS MACK ALY Location:[facility] Registration Date and Time:05/12/2023 14:26 EDT Primary Care Physician: Jericho CALLEJAS, Ganga Ball, Attending Physician: Amanda CALLEJAS, Kody Kaiser, I MACK ALY, have received the above patient education materials/instructions and have verbalized understanding. If ambulance or transport services are being used I further acknowledge being given a choice of service. ?? If you need to contact me, please call me at this number: . Patient/Intelligence Officer Basic Name: Patient/Intelligence Officer Basic Signature: Relationship to Patient: Witness Name/Signature: Date: * Event Display: Provider Clarification Note Please click on pdf link to open report * Event Display: Provider Clarification Note Please click on pdf link to open report * Maria Eugenia Mascorro DO P: PERFORM, MODIFY Event Display: Discharge/Transfer Note Hospital Authored Date: [id number] Patient: ??MACK ALY ? Age:??77 Years?Sex:??Male?:??1945?? Patient Information Discharge Location: Primary Care Physician: Ganga Echavarria MD Admit Date/Time: 05/12/23 14:26 Discharge Disposition Discharge Disposition: ?? Discharge Diagnosis Hypotension (I95.9) Syncope (R55) _ Discharge Medications Acetaminophen (acetaminophen 325 mg oral tablet)?975?Milligram?By Mouth?3 times a day?as needed?FEVER >100.5 Allopurinol (allopurinol 300 mg oral tablet)?300?Milligram?1?tablet?By Mouth?Daily Diltiazem (diltiazem 180 mg/24 hours oral capsule, extended release)?180?Milligram?1?capsule?By Mouth?Daily Durable Medical Equipment (Wheelchair with high back and lay's back)?See Instructions?Wheelchair with high back and lay's backdx history of fall Z91.81 Lactulose (lactulose 10 gm/15 ml oral syrup)?30?Milliliter?20?gram?By Mouth?Daily Melatonin (melatonin 3 mg oral tablet)?3?Milligram?By Mouth?Daily at bedtime?as needed?Insomnia Metoprolol (metoprolol 25 mg oral tablet)?12.5?Milligram?0.5?tablet?By Mouth?2 times a day Mirtazapine (mirtazapine 15 mg oral tablet)?7.5?Milligram?By Mouth?Daily at bedtime Polyethylene Glycol 3350 (MiraLax Powder)?1?pack/packet?17?gram?By Mouth?Daily Quetiapine (SEROquel 25 mg oral tablet)?See Instructions?as needed?0.5 tablet By Mouth daily at bedtime; 2 times a day as needed for agitation?Anxiety Senna (Senna 8.6 mg oral tablet)?8.6?Milligram?1?tab(s)?By Mouth?Daily?as needed?as needed for constipation Senna (Senna 8.6 mg oral tablet)?17.2?Milligram?2?tab(s)?By Mouth?Daily at bedtime Sertraline (sertraline 25 mg oral tablet)?TAKE 1 TABLET BY MOUTH EVERY DAY Simethicone (simethicone 80 mg oral tablet, chewable)?80?Milligram?1?tablet?Chew?Every 8 hours?as needed?Gas Trazodone (traZODone 50 mg oral tablet)?TAKE 1 TABLET BY MOUTH AT BEDTIME NEEDED FOR INSOMNIA ?? Medications Started Mirtazapine (mirtazapine 15 mg oral tablet)?7.5?Milligram?By Mouth?Daily at bedtime Medications Discontinued lisinopril glipizide Doses Changed none Allergies Allergies ?(Active and Proposed Allergies Only) NKA? (Severity: Unknown severity, Onset: Unknown) ? PCP Follow-Up/Heads-Up Patient came in with altered mental status and concern for acute stroke, his acute stroke work-up was negative.?? Thought the changes were due to hypotension??which??was suspected be due from medications. ??We discontinued his home lisinopril??and his blood pressures??and heart rates improved. also discontinued home glipizide. Future Appointments Tuesday 8:30 AM EDT ?? With: Maria Eugenia Puga DO Where: [facility] [address] [place] [address] [address] [place] [address]- Status: Pending Hospital Course 77 y/o M h/o dementia, hypertension, diabetes, type 2, atrial fibrillation, chronic kidney disease,stage III, occasional tremors, cerebral amyloid angiopathy, brain bleeds; presented with sudden onset weakness, right sided facial droop, hypotension, syncope (per EMS, patient found to be unresponsive and unarousable for 10-[address] of the head without any acute findings.. CTA of the head and neck shows no LVO or high grade stenosis. The patient was seen by neurology for concern of acute stroke. As patient's symptoms had resolved by the time he was seen and patient also has history of cerebral amyloid angiopathy, there was no role for TNK and there was no LVO for neuro endovascular intervention. The patient was admitted for syncope, ZOHRA, poor appetite/ FTT. This EKG was at baseline ratecontrolled A-fib. EKG not impressive. There was concern for hypotension secondary to medications hewas on lisinopril 25, metoprolol 12.5, and diltiazem 180 mg daily. He is still to lisinopril was held which resulted in both his blood pressure and heart rate increasing. His home dose of diltiazem was reinitiated on 05/15 and his heart rates improved. Blood pressure stabilized. He was also hypoglycemic on presentation so we will discontinue his home glipizide. His UA was concerning for a UTI and he is status post 4 days of ceftriaxone. Started mirtazapine 7.5 to help with appetite and sleep perGeri consult. ?? Objective Assessment and Plan Acute Hypotension Syncope Hx of hypertension Unresponsiveness:??Resolved Sudden weakness, right??facial droop, resolved History of cerebral amyloid angiopathy, brain bleeds. Low concern for stroke. ??Neurology evaluated. ??No focal neuro deficit.?? CT head/CTA head and neck??no acute pathology??low concern for seizure EKG??baseline atrial fibrillation.?? Rate controlled at this time.?? Troponin??elevated secondary to??acute kidney injury??and??low blood pressure is a stress response.?? Serial troponin downtrending.?? No chest pain.?? 2020 echocardiogram??normal EF We suspect acute hypotension secondary to??medications Pt has been on BP + rate control medications including Lisinopril 25mg daily, Metoprolol 12.5 once daily, and diltiazem XR 180 daily BP somewhat low now. after stopping his dilt and lisinopril 05/12/23, both BP and HR trending up, now HR in the 110s... 05/14: we resumed dilt 120XL, Plan: -??discontinue home lisinopril - Continue metoprolol 12.5 BID -??discontinue glipizide, hypoglycemia may have contributed to his presentation (d/c on discharge) ?? Atrial fibrillation, rate controlled On metoprolol 12.5 BID, Dilt XR 160 at home Was on ASA, stopped by family given risk of bleeds with cerebral amyloid angiopathy Cardiology??discussed about Watchman device however patient and family refused in the past Cardiology will follow-up in office Plan: - Metoprolol 12.5 BID - dilt 180 XR - Hold ASA per family request -??discontinue Lisinopril ?? Dirty UA , possible UTI -resolved Acute kidney injury likely prerenal??in the setting of??concomitant URIEL inhibitor use/low blood pressure and dehydration vs UTI Patient's creatinine improved to??1.4 but now worsened to 1.7 today. UA showing more than 182 WBCs??but urine culture growing??10-50,000 Staphylococcus epidermidis likely contaminant s/p 4 days of CTX ?? Diabetes Type 2 FTT, poor PO intake At risk for hypoglycemia Hx of vascular dementia Subjective Hx of depression Appreciate arabella consult -Discontinue home glipizide -Start mirtazapine??7.5 at night ?? Vital Signs?? Temperature: 98.6 DegF (05/16/23 08:41:00) Temperature Route: Oral (05/16/23 08:41:00) Pulse Rate: 90 bpm (05/16/23 09:49:00) Respiratory Rate: 18 br/min (05/16/23 08:41:00) Systolic Blood Pressure: 121 mm Hg (05/16/23 09:49:00) Diastolic Blood Pressure: 81 mm Hg (05/16/23 09:49:00) Blood pressure sites: Arm, right (05/16/23 08:41:00) Mean Arterial Pressure: 94 mm Hg (05/16/23 08:41:00) Pulse Pressure: 40 mm Hg (05/16/23 08:41:00) Oxygen Saturation: 98 % (05/16/23 08:41:00) Mode of Delivery (Oxygen): Room air (05/16/23 08:41:00) Early Warning Score: 1 (05/16/23 09:59:53) ?? Intake/Output? 05/12 14:26 05/16 07:00 05/15 07:00 05/14 07:00 05/13 07:00 ?? 05/16 10:56 05/16 10:56 05/16 06:59 05/15 06:59 05/14 06:59 Intake ? 5495 ?0 ? 3395 ?480 ?480 Output ? 4850 ?0 ? 1550 ?350 ?400 Net Total ?645 ?0 ? 1845 ?130 ? 80 ? Urine Count ?4 ?0 ?0 ?0 ?2 Emesis Count ?1 ?0 ?0 ?0 ?1 . Physical Exam General Appearance: The patient is in NAD. Cardiovascular: RRR S1 and S2 heard with no M/R/G. Respiratory: ??Breath sounds clear to auscultation bilaterally. No wheezing. Good air movement throughout both lungs. GI: Soft. Nontender and nondistended.?? MS: ??No edema or erythema in the lower extremities.?? Neuro: ??No slurred speech. ??Patient seen moving their upper and lower extremities independently. ?? Consultants Nav CALLEJAS, Nicky - geriatrics Patient Education Titles Discharge Instructions for Low Blood Pressure (Hypotension)?? Follow-Up Appointments Added Follow Up ?Time Frame ?Comments Ganga Echavarria MD?1 to 2 weeks Patient Instructions You came in with concerns of change in mental status.?? Work-up was not concerning for stroke. ??Wesuspect??some of your medicines may have lowered your blood pressure little too much contributing to why you came in.?? We have discontinued your home lisinopril. Results Discharge Labs BLOOD BANK Blood Type B Positive ()?? 05/10/2023 13:35 Antibody Screen Negative ()?? 05/10/2023 13:35 ?? BLOOD COUNT & DIFF WBC 7.5 k/mm3 ()?? 05/15/2023 06:45 RBC 4.63 m/mm3 (Low)?? 05/15/2023 06:45 Hgb 14.8 Gm/dL ()?? 05/15/2023 06:45 Hct 43.7 % ()?? 05/15/2023 06:45 MCV 94.4 femtoliters (High)?? 05/15/2023 06:45 MCH 32.0 pg ()?? 05/15/2023 06:45 MCHC 33.9 g/dL ()?? 05/15/2023 06:45 Platelet Count 173 k/mm3 ()?? 05/15/2023 06:45 RDW-SD 45.8 femtoliters ()?? 05/15/2023 06:45 MPV 10.0 femtoliters ()?? 05/15/2023 06:45 Nucleated RBC (Automated) 0.0 #/100 WBC'S ()?? 05/15/2023 06:45 Abs. NRBC 0.0 k/mm3 ()?? 05/15/2023 06:45 Abs. Neut 7.3 k/mm3 (High)?? 05/10/2023 13:40 Abs. Lymph 2.0 k/mm3 ()?? 05/10/2023 13:40 Abs. Carson 1.1 k/mm3 ()?? 05/10/2023 13:40 Abs. Eo 0.4 k/mm3 ()?? 05/10/2023 13:40 Abs. Baso 0.1 k/mm3 ()?? 05/10/2023 13:40 Neut % 66.9 % ()?? 05/10/2023 13:40 Lymph % 18.4 % ()?? 05/10/2023 13:40 Carson % 9.9 % ()?? 05/10/2023 13:40 Eos % 3.3 % ()?? 05/10/2023 13:40 Baso % 0.8 % ()?? 05/10/2023 13:40 Imm Gran 0.7 % ()?? 05/10/2023 13:40 Abs. Imm Gran 0.1 k/mm3 ()?? 05/10/2023 13:40 ?? CARDIAC High Sensitivity Troponin (HSTnT) 139 ng/L (Critical)?? 05/11/2023 02:53 ? CHEM GENERAL Sodium 135 mmol/L ()?? 05/16/2023 00:45 Potassium 4.3 mmol/L ()?? 05/16/2023 00:45 Chloride 103 mmol/L ()?? 05/16/2023 00:45 Bicarbonate Level 19 mmol/L (Low)?? 05/16/2023 00:45 Anion Gap 13 ()?? 05/16/2023 00:45 Glucose Level 124 mg/dL (High)?? 05/16/2023 00:45 Glucose, POC 113 mg/dL (High)?? 05/16/2023 07:36 Hemoglobin A1C (Monitoring) 6.1 % (High)?? 05/13/2023 08:13 Beta Hydroxybutyrate 0.99 mmol/L (High)?? 05/13/2023 08:10 BUN 24 mg/dL (High)?? 05/16/2023 00:45 Creatinine-Blood 1.5 mg/dL (High)?? 05/16/2023 00:45 Estimated GFR Creatinine 47 ML/MIN/1.73 M2 ()?? 05/16/2023 00:45 Calcium 8.4 mg/dL (Low)?? 05/16/2023 00:45 Magnesium 1.5 mg/dL (Low)?? 05/15/2023 06:45 AST (SGOT) 18 units/L ()?? 05/10/2023 13:40 ? COAG INR 1.0 ()?? 05/10/2023 13:40 Protime (PT) 10.3 seconds ()?? 05/10/2023 13:40 APTT 25.5 seconds ()?? 05/10/2023 13:40 ? HEME OTHER Hold Lavender Top SPECIMEN DISCARDED AFTER 24 HOURS. ()?? 05/16/2023 00:45 ? UA/URINALYSIS Appear/Color, Urine YELLOW ()?? 05/14/2023 06:43 Clarity MARKED TURBIDITY (Abnormal)?? 05/14/2023 06:43 Specific [place], Urine 1.014 ()?? 05/14/2023 06:43 pH, Urine 5.5 ()?? 05/14/2023 06:43 Albumin, Urine 1+ ()?? 05/14/2023 06:43 Glucose, Urine NEGATIVE ()?? 05/14/2023 06:43 Ketones, Urine TRACE (Abnormal)?? 05/14/2023 06:43 Bilirubin, Urine NEGATIVE ()?? 05/14/2023 06:43 Hemoglobin, Urine 1+ (Abnormal)?? 05/14/2023 06:43 Nitrite, Urine NEGATIVE ()?? 05/14/2023 06:43 Leukocyte, Urine 3+ (Abnormal)?? 05/14/2023 06:43 Urobilinogen NORMAL mg/dL ()?? 05/14/2023 06:43 WBC's, Urine >182 /HPF (High)?? 05/14/2023 06:43 RBC's, Urine 81 /HPF (High)?? 05/14/2023 06:43 Bacteria HEAVY HPF (Abnormal)?? 05/14/2023 06:43 Squamous Epith 2 /HPF ()?? 05/14/2023 06:43 WBC Clumps SLIGHT /HPF ()?? 05/14/2023 06:43 Hold Urine Culture Testing available 48 hours from time of collection. ()?? 05/10/2023 17:15 Culture Indication CULTURE INDICATED ()?? 05/14/2023 06:43 ? URINE OTHER Protein, Total Urine Random 34 mg/dL ()?? 05/14/2023 06:43 TP/Cr Ratio 0.34 (High)?? 05/14/2023 06:43 Creatinine, Urine 99.5 mg/dL ()?? 05/14/2023 06:43 Est Creatinine Clearance 44.09 mL/min ()?? 05/16/2023 01:41 ?? VIROLOGY COVID-19 by RT-PCR NEGATIVE ()?? 05/10/2023 16:15 ? Patient discussed with attending physician, Dr. Hamlet Mascorro, DO Internal Medicine PGY2 ?? _30 minutes spent on discharge * Maria Eugenia Mascorro DO P: PERFORM Event Display: Discharge/Transfer Note Hospital Authored Date: Rehab bed was not found, accept this note as a progress note. * Amanda CALLEJAS, Kody Kaiser: PERFORM Event Display: Discharge/Transfer Note Hospital Authored Date: ?? Attending Attestation:??I have seen and evaluated this patient. ??I have discussed the case and itsmanagement with the resident and agree with the findings and plan as documented in the resident???snote. This patient was seen today by me at 1445. ?? This note reflects information of which I was aware up until 1700 today. ? At first we thought the patient was ready for discharge. ??However a rehab that has not yet been found. ?? He is pretty much stable today though. ??Somewhat sleepy in the morning and then more awake later.?? No real complaints or concerns. ??Nothing new going on today.?? He mostly seems pretty confused.??He was not really able to??complain about anything specific. ?? I have never met him before??though. ??Not entirely sure about his baseline. ?? On exam otherwise awake and alert cooperative??a little unclear about things. ?? Vitals today temperature 98.6 heart rate 90 respiratory rate 18 blood pressure 121/81 O2 sat 98% onroom air ?? Lungs clear to auscultation heart exam S1-S2 normal no S3 or S4 Laboratory studies reviewed electrolytes good bicarb low at 19 but that is a little bit better. ?? Renal numbers improved with the BUN dropping??to 24 from 26 and the creatinine down to 1.5 from 1.7 ?? Blood sugars??in the 100s. ?? Assessment plan stable overall improving??ready to be discharged but bed not available yet at rehab.?? No major changes planned for today. ??Continue to monitor laboratory studies and especially blood pressure management.?? Now on higher diltiazem holding URIEL inhibitor??stable on beta-chris. ??Continue to manipulate meds as appropriate. ??Diabetic plans as noted. ? Please see above for the rest of the details of our assessments and plans. ?? * Maria Eugenia Mascorro DO: PERFORM Event Display: Patient Education Leaflets Authored Date: [id number] Discharge Instructions for Low Blood Pressure (Hypotension) ?? [id number] Discharge Instructions for Low Blood Pressure (Hypotension) You have been diagnosed with low blood pressure (hypotension). When you have hypotension, your blood pressure is lower than normal. Low blood pressure can make you feel dizzy or faint. This conditionis sometimes a side effect of taking certain medicines, including medicines for high blood pressure(hypertension). It can also result from medical conditions such as dehydration. Hypotension has many possible causes. Sometimes the cause is unknown, and you will need follow- up visits and tests. Home care These steps can help manage your condition: ??? Follow your healthcare provider???s instructions. Go to all your follow up appointments. ??? Rest in bed and ask for help with daily activities until you feel better. You may need to slowly increase the amount of time you spend sitting or doing light activity. ??? Don???t drive while your blood pressure is not controlled. ??? Be careful when you getup from sitting or lying down. o Take your time. Sudden movements can cause dizziness or fainting. o When you first sit up after lying down, be sure to sit up for at least 30 seconds or so before getting up to walk. o Place your feet on the floor before standing. ??? Tell your??healthcare provider about the medicines you are taking. Many kinds of medicines trigger low blood pressure. ??? Limit your alcohol intake to no more than 2 drinks a day for men and 1 drink a day for women. Alcohol can dehydrate you even further. It can also interfere with the effectiveness of medicines. ??? Prevent dehydration by drinking plenty of fluids, unless otherwise instructed by your healthcare provider. ??? Learn to take your own blood pressure. Keep a record of your results. Ask your healthcare provider which readings mean that you need medical attention. ??? Tell your family members to call an ambulance??if you become unconscious. Ask them to??learn CPR. ?? Follow-up care Make a follow-up appointment, or as advised. ?? Call 911 Call 911 right away if you have: ??? Chest pain ??? Shortness of breath ?? When to call your healthcare provider Call your healthcare provider right away if you have any of the following: ??? Dizziness or fainting spells ??? Black, maroon, or tarry stools ??? Irregular heartbeat ??? Neck pain or stiffness ??? Severe upper back pain ??? Diarrhea or vomiting that doesn???t go away ??? Inability to eat or drink ??? Burning sensation when you pee ??? Urine with a strong, unpleasant odor ??? Fainting with exercise ?? Last Reviewed Date: 2021 ?? [id number] [employer]. All rights reserved. This information is not intended as a substitute for professional medical care. Always follow your healthcare professional's instructions. ?? Consult note * Elida Keita RN: VERIFY, PERFORM, SIGN Event Display: Consultation Note Authored Date: [id number] Patient: MACK ALY Age: 77 years Sex: Male : 1945 Associated Diagnoses: None Author: Elida Keita RN History of Presenting Problem Date of Service 05/17/2023 Wound RN consult entered to assess right knee, right elbow, left wrist... skin tears and make topical recommendations. Spoke to direct care RN on W4, stated no concerns for wounds, verified they are skin tears and aware of Xeroform skin tear protocol, reviewed skin tear recommendations below. Above discussed with MD Obed Mascorro via cortext and consult discontinued. Cleanse with NACL. Pat dry. Apply double layer of Xeroform over wound beds. Cover with DSD. Wrap with kerlix. Secure with tape over kerlix, not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 Years?Sex:??Male?:??1945?? Chief Complaint/Reason for Consultation unresponsiveness, RFD History of Present Illness 77 male with history of dementia, amyloid angiopathy,?? HTN, DM, CKD, afib, only on ASA due to CAA presenting to the hospital with a spell of unresponsiveness. Patient was at home with his when VNA witnessed an unresponsive episode. She stated that he initially did not look well, so she went to get blood pressure cuff and when she returned he was obtunded. This occurred around 1300.??EMS wascalled and by the time they arrived, he was noted to be obtunded and unresponsive to sternal rub. He them awakened and with possible facial droop. This improved en route. His blood pressure was soft,in the 80s-90s systolic.??He was not noted??to be??confused after he woke up. ??He was nonfocal on arrival, but he was having difficulty speaking and following commands initially, but this was also improved by the time he was in CT scanner. CT and CTA were nonacute. He was not a TNKase candidate due to resolution of symptoms and diagnosis of CAA. No LVO for NEV. Review of Systems does not answer all questions Objective Vital Signs?? No qualifying data available. ?? Ventilator Settings?? No qualifying data available. ? Intake/Output? No Data Available ? Physical Exam ?? NIH Stroke Scale?? Level of Consciousness for Stroke Scale : ?Alert?? Response Month/Age : ?Answers neither question correctly?? Response Open/Close Eyes : ?Performs both tasks correctly?? Best Gaze : ?Normal?? Visual : ?No visual loss?? Facial Palsy : ?Normal symmetrical movements?? Motor Function Left Arm : ?Drift?? Motor Function Right Arm : ?Drift?? Motor Function Left Leg : ?Some effort against gravity?? Motor Function Right Leg : ?Some effort against gravity?? Limb Ataxia : ?Absent?? Sensory : ?Normal; no sensory loss?? Best Language : ?Mild to moderate aphasia?? Dysarthria NIH Stroke Scale : ?Normal?? Extinction and Inattention : ?No abnormality?? NIH Stroke Scale Score : ?9 ?? Assessment/Plan 77 male with history of dementia, amyloid angiopathy,?? HTN, DM, CKD, afib, only on ASA due to CAA presenting to the hospital with a spell of unresponsiveness. Patient was at home with his when VNA witnessed an unresponsive episode. She stated that he initially did not look well, so she went to get blood pressure cuff and when she returned he was obtunded. This occurred around 1300.??EMS wascalled and by the time they arrived, he was noted to be obtunded and unresponsive to sternal rub. He them awakened and with possible facial droop. This improved en route. His blood pressure was soft,in the 80s-90s systolic.??He was not noted??to be??confused after he woke up. ??He was nonfocal on arrival, but he was having difficulty speaking and following commands initially, but this was also improved by the time he was in CT scanner. CT and CTA were nonacute. He was not a TNKase candidate due to resolution of symptoms and diagnosis of CAA. No LVO for NEV. ?? ddx: suspect syncope from hypotension. less likely seizure since no witnessed convulsions ?? Recommendations: -defer to medicine to workup syncope and hypotension -no stroke treatment needed at this time. continue ASA -no seizure workup, however if he has recurrent events, consider EEG/AED -neurology signing off ?? d/w Dr. Langford Histories Allergies Allergies ?(Active and Proposed Allergies Only) NKA? (Severity: Unknown severity, Onset: Unknown) ? Past Medical History/Problem List Active Problems??(14) Atrial fibrillation Cataract Chronic kidney disease (CKD), stage III (moderate) Dementia Gout Hereditary cerebral amyloid angiopathy History of fall HTN (hypertension) Occasional tremors ENEDINA (obstructive sleep apnea) Periorbital hematoma of left eye Senile purpura T2DM (type 2 diabetes mellitus) Tinea cruris ? Past Surgical History None ? Social [...] Brother: Parkinson disease ? Medications Home Medications Acetaminophen (acetaminophen 325 mg oral tablet)?975?Milligram?By Mouth?3 times a day?as needed?FEVER >100.5 Allopurinol (allopurinol 300 mg oral tablet)?300?Milligram?1?tablet?By Mouth?Daily Diltiazem (diltiazem 180 mg/24 hours oral capsule, extended release)?180?Milligram?1?capsule?By Mouth?Daily Durable Medical Equipment (Wheelchair with high back and lay's back)?See Instructions?Wheelchair with high back and lay's backdx history of fall Z91.81 GlipiZIDE (glipiZIDE 5 mg oral tablet)?2.5?Milligram?0.5?tablet?By Mouth?Daily Clarisa Lactulose (lactulose 10 gm/15 ml oral syrup)?30?Milliliter?20?gram?By Mouth?Daily Lisinopril (lisinopril 2.5 mg oral tablet)?2.5?Milligram?1?tablet?By Mouth?Daily Melatonin (melatonin 3 mg oral tablet)?3?Milligram?By Mouth?Daily at bedtime?as needed?Insomnia Metoprolol (metoprolol 50 mg oral tablet, extended release)?50?Milligram?1?tablet?ByMouth?Daily Polyethylene Glycol 3350 (MiraLax Powder)?1?pack/packet?17?gram?By Mouth?Daily Quetiapine (SEROquel 25 mg oral tablet)?See Instructions?as needed?0.5 tablet By Mouth daily at bedtime; 2 times a day as needed for agitation?Anxiety Senna (Senna 8.6 mg oral tablet)?8.6?Milligram?1?tab(s)?By Mouth?Daily?as needed?as needed for constipation Senna (Senna 8.6 mg oral tablet)?17.2?Milligram?2?tab(s)?By Mouth?Daily at bedtime Simethicone (simethicone 80 mg oral tablet, chewable)?80?Milligram?1?tablet?Chew?Every 8 hours?as needed?Gas ? Results Recent Labs CHEM GENERAL Glucose, POC 184 mg/dL (High)?? 05/10/2023 13:27 ? * Primitivo CALLEJAS, Andrzej: PERFORM Event Display: Consultation Note Authored Date: I saw the images, reviewed the pertinent history and physical and agree with the impression and plan ??as discussed and outlined by Oksana, afib not on AC due to Amyloid, syncope work up per medicine/admit. Please call neuro ??if any new changes/events, [id number] Patient Care team information Care Team Personnel Name: Milka Jimenez RN Position: [facility] RN Member Role: Primary Care Nurse Name: Adrian De Leon RN Position: S RN Member Role: Primary Care Nurse Name: Yu Villatoro RN Position: S RN Member Role: Primary Care Nurse Name: George Alonso RN Position: S RN Member Role: Primary Care Nurse Name: Adelita Rizzo RN Position: S RN Member Role: Primary Care Nurse Name: Antoni Garcia RN Position: S RN Member Role: Primary Care Nurse Name: Shaji North RN Position: S RN Member Role: Primary Care Nurse Name: Quintin Ruiz RN Position: [facility] RN Member Role: Primary Care Nurse Name: Jennifer Soria RN Position: [facility] RN Member Role: Primary Care Nurse Name: Delmy Rodriguez RN Position: [facility] RN Member Role: Primary Care Nurse Name: Geena Montez RN Position: [facility] RN Member Role: Primary Care Nurse Name: Ganga Echavarria MD Position: [facility] Physician - Primary Care Member Role: PCP Address: Address: [address] [place] [address]- Name: *Agata COREY Attending Position: [facility] ED Medicine MD Name: Shagufta Garcia RN Position: [facility] ED RN W/OE and Tasks Member Role: Patient Care Provider Name: Scooby Mccall Position: [facility] ED OA Charge Member Role: ED Associate Name: Tone Lemus Position: [facility] ED TA [facility] Member Role: Patient Care Provider Care Team Related Persons Name: CYN ALY Address: home [address] [place] [address] Name: KIMBERLY RIVERA Address: home [address] [place] [address]
--- OUTSIDE RECORDS SUMMARY | 2023-06-17 04:30 | XMS_ITS | Continuity of Care Document ---
Author Name Unknown Organization [facility] Address [address] [place] [address]- Care Team Providers Care In Store Marketing Associate Name Role Phone Tiarra Terry Primary Care Physician Encounter [facility] Date(s): 10/27/20 - 11/03/[address] [address] Attending Physician: Christopher CALLEJAS, Esmer Delcid [...] 05/08/20 11:09:00 EDT, Route to Pharmacy Electronically, [facility], 183, cm, 05/08/20 7:48:00 [...] 05/08/20 11:09:00 EDT, Route to Pharmacy Electronically, [facility], 183, cm, 05/08/20 7:48:00 EDT, Height, 91.2, kg, 05/06/20 16:31:00 EDT, Dry... Start Date: 05/08/20 Status: Ordered Social History Social History Type Response Smoking Status Never (less than 100 in lifetime) entered on: 07/28/20 Sex
--- OUTSIDE RECORDS SUMMARY | 2023-06-17 04:30 | XMS_ITS | Continuity of Care Document ---
Author Name Unknown Organization [facility] Address [address] [place] [address]- Care Team Providers Care Home Inspector Name Role Phone Selma MARTINS, Tiarra Rodriguez Primary Care Physician Encounter [facility] Date(s): 04/28/21 - 05/28/21 [facility] [address] [place] [address]- [place] Allergies, Adverse Reactions, Alerts Substance Reaction Severity [...] 05/08/20 11:09:00 EDT, Route to Pharmacy Electronically, [facility], 183, cm, 05/08/20 [...] 04/28/21 12:08:00 EDT, Route to Pharmacy Electronically, [facility], 183, cm, 07/28/20 15:00:00 EST, Height, 91.2, kg, 05/06/20 16:31:00 EDTMichelle.. Start Date: 04/28/21 Stop Date: 06/22/22 Status: Ordered Social History Social History Type Response Smoking Status Never (less than 100 in lifetime) entered on: 07/28/20 Sex
--- OUTSIDE RECORDS SUMMARY | 2023-06-17 04:30 | XMS_ITS | Continuity of Care Document ---
Author Name Unknown Organization [facility] Address [address] [place] [address]- Care Team Providers Care Smash Piecer Name Role Phone Bert CALLEJAS, Luma Dixon Primary Care Physician [facility] [id number] Date(s): 05/19/20 - 06/18/[address] [address]- [facility] Attending Physician: Marquez Graff Admitting Physician: Marquez [...] 05/08/20 11:09:00 EDT, Route to Pharmacy Electronically, [facility], 183, cm, 05/08/20 7:48:00 [...] 05/08/20 11:09:00 EDT, Route to Pharmacy Electronically, [facility], 183, cm, 05/08/20 7:48:00 EDT, Height, 91.2, kg, 05/06/20 16:31:00 EDT, Dry... Start Date: 05/08/20 Status: Ordered
--- OUTSIDE RECORDS SUMMARY | 2023-06-17 04:30 | XMS_ITS | Continuity of Care Document ---
Author Name Unknown Organization [facility] Address [address] [place] [address]- Care Team Providers Care Automobile Assembly Supervisor Name Role Phone Bert CALLEJAS, Luma Dixon Primary Care Physician Encounter [facility] Date(s): 09/07/19 - 09/17/19 [facility] [address] [place] [address]- [facility] Attending Physician: Admtr, Ar8 Admitting Physician: Admtr, Ar8 Referring Physician: Admtr, Ar8 Allergies, Adverse Reactions, Alerts Substance Reaction Severity Status NKA Active
--- OUTSIDE RECORDS SUMMARY | 2023-06-17 04:30 | XMS_ITS | Continuity of Care Document ---
Author Name Unknown Organization [facility] Address [address] [place] [address]- Care Team Providers Care Phlebotomy Director Name Role Phone Luma Noel MD Primary Care Physician Encounter [facility] Date(s): 05/19/20 - 05/26/[address] [address] Attending Physician: Esmer White MD Admitting Physician: Esmer White MD Referring Physician: Luma Noel MD Allergies, Adverse Reactions, Alerts Substance Reaction [...] recent to oldest [Reference Range]: 1 2 Height 183 cm (05/19/20 5:36 PM) 183 cm (05/19/20 8:59 AM) Weight 93.7 kg (05/19/20 5:36 PM) 93.7 kg (05/19/20 8:59 AM) Oxygen Saturation [94-100 %] 97 % (05/19/20 8:59 AM) Pulse Rate [55-90 bpm] 89 bpm (05/19/20 8:59 AM) Body Mass Index [18.5-24.99] 27.98 *H* (05/19/20 8:59 AM) Blood Pressure [90-138/55-84 mm Hg] 135/ 75mm Hg (05/19/20 8:59 AM) Temperature [96.8-100.4 DegF] 97.1 DegF (05/19/20 8:59 AM) Blood pressure sites Arm, left (05/19/20 8:59 AM) Temperature Route Temporal (05/19/20 8:59 AM)
--- OUTSIDE RECORDS SUMMARY | 2023-06-17 04:30 | XMS_ITS | Continuity of Care Document ---
Author Name Unknown Organization [facility] Address [address] [place] [address]- Care Team Providers Care Paperhanger Contractor Name Role Phone Selma MARTINS, Tiarra Rodriguez Primary Care Physician En[place] [facility] [id number] Date(s): 07/29/22 - 08/28/22 [facility] [address] [place] [address]- Attending Physician: Marquez Graff Admitting Physician: Marquez Graff Referring Physician: Marquez Graff Allergies, Adverse Reactions, Alerts No Known Allergies Immunizations Not Given Vaccine Date Status Refusal [...] 05/08/20 11:09:00 EDT, Route to Pharmacy Electronically, [facility], 183, cm, 05/08/20 7:48:00 [...] EDT Start Date: 02/18/20 Status: Ordered metoprolol 50 mg oral tablet 50 mg, 1, tablet, By Mouth, 2 times a day, # 60 tablet, Refills 5, Tot. Refills 5, Maintenance, 07/29/22 13:54:00 EST, Route to Pharmacy Electronically, [facility] #[id number], Partial fill upon patient request if the prescription is for a schedule II opi... Start Date: 07/29/22 Stop Date: 01/25/23 Status: Ordered Problem List Condition Confirmation Course Effective Dates Status Health St atus Informant Atrial fibrillation Confirmed Active Cataract Confirmed Active Chronic kidney disease (CKD), stage III (moderate) Confirmed Active Gout Confirmed Active HTN (hypertension) Confirmed Active Occasional tremors Confirmed Active ENEDINA (obstructive sleep apnea) Confirmed Active T2DM (type 2 diabetes mellitus) Confirmed Active Social History Social History Type Response Smoking Status Never (less than 100 in lifetime) entered on: 07/22/22 Sex Patient Care team information Care Team Personnel Name: Adrian De Leon RN Position: [facility] RN Member Role: Primary Care Nurse Name: Tiarra Terry Position: Reference Physician Member Role: PCP Address: Address: [address] [place] [address] Care Team Related Persons Name: CYN ALY Address: home [address] [place] [address]
--- OUTSIDE RECORDS SUMMARY | 2023-06-17 04:30 | XMS_ITS | Continuity of Care Document ---
Author Name Unknown Organization [facility] Address [address] [place] [address]- Care Team Providers Care Cabin Cleaning Supervisor Name Role Phone Bert CALLEJAS, Luma Dixon Primary Care Physician Encounter [facility] Date(s): 09/04/19 - 09/04/[address] [address]- [facility] Attending Physician: Cherri CALLEJAS, Fransico Kaiser Allergies, Adverse Reactions, Alerts Substance Reaction Severity Status NKA Active
--- OUTSIDE RECORDS SUMMARY | 2023-06-17 04:30 | XMS_ITS | Continuity of Care Document ---
Author Name Unknown Organization [facility] Address [address] [place] [id number]- Care Team Providers Care Button Inspector Name Role Phone Selma MARTINS, Tiarra Rodriguez Primary Care Physician ( [phone] Encounter [facility] Date(s): 08/01/20 - 08/31/20 [facility] [address] [place] [address]- Allergies, Adverse Reactions, Alerts Substance Reaction Severity [...] 05/08/20 11:09:00 EDT, [facility], [facility], cm, 05/08/20 7:48:00 EDT, [...] 05/08/20 11:09:00 EDT, Route to Pharmacy Electronically, [facility], 183, cm, 05/08/20 7:48:00 EDT, Height, 91.2, kg, 05/06/20 16:31:00 EDT, Dry... Start Date: 05/08/20 Status: Ordered Social History Social History Type Response Smoking Status Never (less than 100 in lifetime) entered on: 07/28/20 Sex
--- OUTSIDE RECORDS SUMMARY | 2023-06-17 04:30 | XMS_ITS | Continuity of Care Document ---
Author Name Unknown Organization [facility] ter Address [address] [place] [id number]- Care Team Providers Care Annealing Operator Name Role Phone Ganga Echavarria MD Primary Care Physician [phone] Encounter [facility] Date(s): 02/16/23 - 02/17/[address] [address]- Encounter Diagnosis Fall(Final) - 02/17/23 Discharge Disposition: A-D/C Home Attending Physician: Adán Smith MD Admitting Physician: Adán Smith MD Referring Physician: Not on Staff, [...] release 180 mg, CD Capsule, By Mouth, 02/17/23 9:00:00 EDT Start Date: 02/17/23 Stop Date: 02/17/23 Status: Completed glipiZIDE 5 mg oral tablet 5 mg, 1, tablet, By Mouth, 2 times a day, # 180 tablet, Refills 0, Tot. Refills 0, Maintenance, 12/29/22 17:12:00 EDT, Route to Pharmacy Electronically, [facility]/pharmacy #[id number], Partial fill upon patient request if the prescription is for a schedule II opi... Start Date: 12/29/22 Status: Ordered lisinopril 2.5 mg oral tablet 2.5 mg, 1, tablet, By Mouth, Daily, Refills 0, Maintenance, 02/18/20 14:06:00 EDT Start Date: 02/18/20 Status: Ordered Metoprolol Tartrate 50 mg oral tablet 1 tablet, By Mouth, 2 times a day, # 180 tablet, 1 Refills, Maintenance, 01/28/23 8:25:00 EDT, [id number], 183, cm, 12/29/22 14:03:00 EDT, Height Start Date: 01/28/23 Stop Date: 02/27/23 Status: Ordered traZODone 50 mg oral tablet 1, tablet, By Mouth, Daily at bedtime, PRN, # 30 tablet, Refills 0, Maintenance, NEEDED FOR INSOMNIA, 01/21/23 15:24:00 EDT, Route to Pharmacy Electronically, [id number], 183, cm, 12/29/22 14:03:00 EDT, Height Start [...] (type 2 diabetes mellitus) Confirmed Active Results Radiology Reports * Exam Date Time Procedure Performing Provider Status 02/17/23 1:23 AM Knee 1 or 2 Views Left Abbott , Aurea ; Auth (Verified) Notes: (Knee 1 or 2 Views Left) Reason For Exam: with Pain;Trauma RESULT: Knee 1 or 2 Views Left Left knee 2 views dated February 17, 2023. No prior studies are available. HISTORY: Pain. FINDINGS: This examination shows no evidence of fracture or dislocation. There is mild loss of joint space in all 3 joint compartments. Calcification is noted along the superior pole of the patella. No joint effusion is seen. IMPRESSION: Minimal degenerative changes. No evidence of fracture or dislocation. Examination 53[address]. Thank you for allowing me to participate in the care of this patient. WSN: [id number] Ordering Physician: Iva Ruiz Dictated By: Reymundo Palomares MD Dictated Date/Time: 02/17/23 8:07 am Reviewed By: Reymundo Palomares MD Signed By: Reymundo Palomares MD Signed Date/Time: 02/17/23 8:07 am Transcribed By: MIGDALIA Transcribed Date/Time: 02/17/23 8:07 am * Exam Date Time Procedure Performing Provider Status 02/17/23 1:23 AM Chest 2 Views Frontal and Lat Aurea Abbott; Modified Notes: (Chest 2 Views Frontal and Lat) Reason For Exam: Shortness of Breath RESULT: Chest 2 Views Frontal and Lat AP and lateral chest x-ray dated February 17, 2023. Comparison films are from December 19, 2020. HISTORY: Shortness of breath. FINDINGS: Today's study is limited as the inferior and right lateral lateral aspect of the thorax are not completely included on the AP or lateral views. The cardiac silhouette is at the upper limits of normal for size. Hilar and mediastinal structures are unremarkable. No airspace infiltrate or pleural effusion is identified. Degenerative changes are present in the spine and shoulders. IMPRESSION: Mildly Limited study showing no evidence of acute pulmonary disease. Examination 45881. Thank you for allowing me to participate in the care of this patient. WSN: [id number] Ordering Physician: Iva Ruiz Dictated By: Reymundo Palomares MD Dictated Date/Time: 02/17/23 8:05 am Reviewed By: Reymundo Palomares MD Signed By: Reymundo Palomares MD Signed Date/Time: 02/17/23 8:05 am Transcribed By: MIGDALIA Transcribed Date/Time: 02/17/23 8:02 am * Exam Date Time Procedure Performing Provider Status 02/16/23 10:[address] Cervical Spine W/O Contrast Oksana Milan; Auth (Verified) Notes: (CT Cervical Spine W/O Contrast) Reason For Exam: Neck trauma, dangerous injury mechanism;Other: RESULT: CT Cervical Spine W/O Contrast CT Head/Brain W/O Contrast, CT Cervical Spine W/O Contrast INDICATION: Per pt was walking outside and had unwitnessed fall. + Head strike to left side. TECHNIQUE: Noncontrast head CT using axial technique was reconstructed in axial and coronal planes.Noncontrast spiral CT through the cervical spine was formatted in 3 planes. Automatic tube modulation was used for the cervical spine and iterative dose reconstruction was used for both the head and cervical spine to optimize scan parameters and image quality. CTDIvol Body: 16.80 mGy, DLP Body: 444 mGy*cm. CTDIvol Head: 41.10 mGy, DLP Head: 671 mGy*cm. COMPARISON: 02/04/2023. FINDINGS: Bulb Sorter View Findings, Lines and Tubes: None. BRAIN AND EXTRA-AXIAL SPACES: No parenchymal [...] TISSUES: No fractures or suspicious bony lesions. Moderate left maxillary sinus mucous retention cyst. The remaining paranasal sinuses and mastoid air cells are clear. Status-post bilateral lens extraction. Improved now small left periorbital hematoma as compared to prior. CERVICAL SPINE: No fracture. No acute osseous abnormalities. Normal alignment. No locked or perched facet. Severe multilevel degenerative disc space narrowing and end plate irregularity. OTHER BONES: No acute abnormality. CERVICAL SOFT TISSUES AND LUNG APICES: Normal soft tissues. Visualized lung apices are clear. IMPRESSION: No acute abnormality of the head or cervical spine. Improved now small left periorbital hematoma. I have personally reviewed the images and I agree with this report. WSN: [id number] Ordering Physician: Iva Ruiz Dictated By: Jensen Muñoz MD Dictated Date/Time: 02/16/23 11:24 p Reviewed By: Ronal Gavin MD Signed By: Ronal Gavin MD Signed Date/Time: 02/16/23 11:29 pm Transcribed By: MIGDALIA Transcribed Date/Time: 02/16/23 11:02 pm * Exam Date Time Procedure Performing Provider Status 02/16/23 10:[address] Head/Brain W/O Contrast Olvin Milan; Auth (Verified) Notes: (CT Head/Brain W/O Contrast) Reason For Exam: Trauma RESULT: CT Head/Brain W/O Contrast CT Head/Brain W/O Contrast, CT Cervical Spine W/O Contrast INDICATION: Per pt was walking outside and had unwitnessed fall. + Head strike to left side. TECHNIQUE: Noncontrast head CT using axial technique was reconstructed in axial and coronal planes.Noncontrast spiral CT through the cervical spine was formatted in 3 planes. Automatic tube modulation was used for the cervical spine and iterative dose reconstruction was used for both the head and cervical spine to optimize scan parameters and image quality. CTDIvol Body: 16.80 mGy, DLP Body: 444 mGy*cm. CTDIvol Head: 41.10 mGy, DLP Head: 671 mGy*cm. COMPARISON: 02/04/2023. FINDINGS: Bulb Sorter View Findings, Lines and Tubes: None. BRAIN AND EXTRA-AXIAL SPACES: No parenchymal [...] TISSUES: No fractures or suspicious bony lesions. Moderate left maxillary sinus mucous retention cyst. The remaining paranasal sinuses and mastoid air cells are clear. Status-post bilateral lens extraction. Improved now small left periorbital hematoma as compared to prior. CERVICAL SPINE: No fracture. No acute osseous abnormalities. Normal alignment. No locked or perched facet. Severe multilevel degenerative disc space narrowing and end plate irregularity. OTHER BONES: No acute abnormality. CERVICAL SOFT TISSUES AND LUNG APICES: Normal soft tissues. Visualized lung apices are clear. IMPRESSION: No acute abnormality of the head or cervical spine. Improved now small left periorbital hematoma. I have personally reviewed the images and I agree with this report. WSN: [id number] Ordering Physician: Iva Ruiz Dictated By: Jensen Muñoz MD Dictated Date/Time: 02/16/23 11:24 p Reviewed By: Ronal Gavin MD Signed By: Ronal Gavin MD Signed Date/Time: 02/16/23 11:29 pm Transcribed By: MIGDALIA Transcribed Date/Time: 02/16/23 11:02 pm Vital Signs Most recent to oldest [Reference Range]: 1 2 3 Weight 90.9 kg (02/17/23 5:54 AM) 90.9 kg (02/17/23 4:50 AM) 90.9 kg (02/16/23 11:31 PM) Oxygen Saturation [94-100 %] 97 % (02/17/23 4:11 PM) 96 % (02/17/23 1:08 PM) 98 % (02/17/23 8:36 AM) Pulse Rate [55-90 bpm] 90 bpm (02/17/23 4:11 PM) 94 bpm *H* (02/17/23 1:08 PM) 90 bpm (02/17/23 8:36 AM) Blood Pressure [90-138/55-84 mm Hg] 118/79mm Hg (02/17/23 4:11 PM) 122/86mm Hg (02/17/23 1:08 PM) 123/79mm Hg (02/17/23 8:36 AM) Respiratory Rate [16-30 br/min] 18 br/min (02/17/23 4:11 PM) 20 br/min (02/17/23 1:08 PM) 17 br/min (02/17/23 8:36 AM) Temperature [96.8-100.4 DegF] 98.0 DegF (02/16/23 10:37 PM) 97.9 DegF (02/16/23 9:44 PM) 98.2 DegF (02/16/23 9:26 PM) Mode of Delivery (Oxygen) Room air (02/17/23 4:11 PM) Room air (02/17/23 1:08 PM) Room air (02/17/23 8:36 AM) Blood pressure sites Arm, left (02/17/23 4:50 AM) Arm, right (02/17/23 12:52 AM) Arm, left (02/16/23 11:31 PM) Temperature Route Oral (02/16/23 10:37 PM) Oral (02/16/23 9:44 PM) Oral (02/16/23 9:26 PM) Dry Weight 90.9 kg (02/17/23 5:54 AM) 90.9 kg (02/17/23 4:50 AM) 90.9 kg (02/16/23 11:31 PM) Weight Obtained Via Patient/family state d (02/16/23 9:44 PM) Social History Social History Type Response Smoking Status Never (less than 100 in lifetime) entered on: 07/22/22 Sex Note * Luis Laird DO: PERFORM Event Display: Patient Education Leaflets Authored Date: [id number] Physical Therapy Referral ?? 250 ?? This page is FOR PRESCRIBERS Only, ? DO NOT GIVE TO THE PATIENT? Physical Therapy Referral Program for Management of Pain In an effort to reduce narcotic use, some of our ED patients will benefit from a direct referral torehab care.?? [facility] will see INSURED patients and has a system in place to avoid sending follow up paperwork to the ED prescribers.? Note: Non-[facility] physical therapy services will probably NOT be able to handle ED generated PT referrals. ?? Patients should still follow up with their PCP as soon as possible regarding their ongoing care. Inform patients that [facility] will discuss insurance when they call.?? Some insurance plans limit the amount of PT a patient can receive each year. ?? Complete the FIRST PAGE of the patient???s referral sheet. [place] or write in diagnosis Modify the timing for treatment, if needed List any major precautions (i.e.?? Non-weight bearing limb), if needed Sign, date and print your name at the bottom ? Physical Therapy Referral Form Patient Instructions: You are being referred to physical therapy.?? This form is your referral and MUST be brought to your appointment. You need to call to set up your appointment. ?? This form can be used at any [facility] location.?? A list of locations is attached.?? 1)?? DIAGNOSIS/ICD-10 ([place] one) Cervicalgia: M54.2 ? Strain of muscle, fascia and tendon at neck level: S16.1XXD? Radiculopathy, cervical region: M54.12? Mid back pain: M54.9 ? Low back pain:?? M54.5 Strain of muscle, fascia and tendon of lower back: S39.012D Radiculopathy, lumbosacral region: M54.17 Other:? 2)? [? ]? Evaluate and Treat 2 Times/Week for 4 weeks as needed [? ]?Other: 3)? [? ]? No Precautions [? ]?Precautions: ?? I hereby certify these services as medically necessary for the patient???s plan of care. Physician???s Signature Date Physician Name (printed)? Locations You can call any location below.?? Tell them you were seen in a [facility] Emergency Department and have a referral form.?? Remember to bring your referral form with [place] [address]? [place] [address], [address]? [address] Phone: [phone]? [place] [address]? [place] [address]? [address] ? [place] [address]? [place] [address]? [address] ? [place] [address]? [place] [address]? [address]? [facility] [place] ? [address] ? * Luis Laird DO: PERFORM Event Display: Patient Education Leaflets Authored Date: Physical Therapy Referral ?? 250 ?? This page is FOR PRESCRIBERS Only, ? DO NOT GIVE TO THE PATIENT? Physical Therapy Referral Program for Management of Pain In an effort to reduce narcotic use, some of our ED patients will benefit from a direct referral [facility].?? [facility] will see INSURED patients and has a system in place to avoid sending follow up paperwork to the ED prescribers.? Note: Non-[facility] physical therapy services will probably NOT be able to handle ED generated PT referrals. ?? Patients should still follow up with their PCP as soon as possible regarding their ongoing care. Inform patients that [facility] will discuss insurance when they call.?? Some insurance plans limit the amount of PT a patient can receive each year. ?? Complete the FIRST PAGE of the patient???s referral sheet. [place] or write in diagnosis Modify the timing for treatment, if needed List any major precautions (i.e.?? Non-weight bearing limb), if needed Sign, date and print your name at the bottom ? Physical Therapy Referral Form Patient Instructions: You are being referred to physical therapy.?? This form is your referral and MUST be brought to your appointment. You need to call to set up your appointment. ?? This form can be used at any [facility] location.?? A list of locations is attached.?? 1)?? DIAGNOSIS/ICD-10 ([place] one) Cervicalgia: M54.2 ? Strain of muscle, fascia and tendon at neck level: S16.1XXD? Radiculopathy, cervical region: M54.12? Mid back pain: M54.9 ? Low back pain:?? M54.5 Strain of muscle, fascia and tendon of lower back: S39.012D Radiculopathy, lumbosacral region: M54.17 Other:? 2)? [? ]? Evaluate and Treat 2 Times/Week for 4 weeks as needed [? ]?Other: 3)? [? ]? No Precautions [? ]?Precautions: ?? I hereby certify these services as medically necessary for the patient???s plan of care. Physician???s Signature Date Physician Name (printed)? Locations You can call any location below.?? Tell them you were seen in a [facility] and have a referral form.?? Remember to bring your referral form with you to the appointment. [place] [address]? [place] [address], [address]? [address] Phone: [phone]? [place] [address]? [place] [address]? [address] ? [place] [address]? [place] [address]? [address] ? [place] [address]? [place], [place] [address]? [address]? [facility] ? [address] ? * Luis Laird DO: PERFORM Event Display: Patient Education Leaflets Authored Date: [id number] Fall with Uncertain Cause ?? [id number] Fall with Uncertain Cause You had a [...] color) ?? Last Reviewed Date: 2022 ?? [id number] [employer]. All rights reserved. This information is not intended as a substitute for professional medical care. Always follow your healthcare professional's instructions. ?? CT Cervical spine WO contrast * [facility] , CIS S: TRANSCRIBE Ronal Gavin MD: VERIFY Toni CALLEJAS, Jensen: SIGN Event Display: Result: Authored Date: [id number] CT Head/Brain W/O Contrast, CT Cervical Spine W/O Contrast INDICATION: Per pt was walking outside and had unwitnessed fall. + Head strike to left side. TECHNIQUE: Noncontrast head CT using axial technique was reconstructed in axial and coronal planes.Noncontrast spiral CT through the cervical spine was formatted in 3 planes. Automatic tube modulation was used for the cervical spine and iterative dose reconstruction was used for both the head and cervical spine to optimize scan parameters and image quality. CTDIvol Body: 16.80 mGy, DLP Body: 444 mGy*cm. CTDIvol Head: 41.10 mGy, DLP Head: 671 mGy*cm. COMPARISON: 02/04/2023. FINDINGS: Bulb Sorter View Findings, Lines and Tubes: None. BRAIN AND EXTRA-AXIAL SPACES: No parenchymal [...] TISSUES: No fractures or suspicious bony lesions. Moderate left maxillary sinus mucous retention cyst. The remaining paranasal sinuses and mastoid air cells are clear. Status-post bilateral lens extraction. Improved now small left periorbital hematoma as compared to prior. CERVICAL SPINE: No fracture. No acute osseous abnormalities. Normal alignment. No locked or perched facet. Severe multilevel degenerative disc space narrowing and end plate irregularity. OTHER BONES: No acute abnormality. CERVICAL SOFT TISSUES AND LUNG APICES: Normal soft tissues. Visualized lung apices are clear. IMPRESSION: No acute abnormality of the head or cervical spine. Improved now small left periorbital hematoma. I have personally reviewed the images and I agree with this report. WSN: [id number] Ordering Physician: Iva Ruiz Dictated By: Jensen Muñoz MD Dictated Date/Time: 02/16/23 11:24 p Reviewed By: Ronal Gavin MD Signed By: Ronal Gavin MD Signed Date/Time: 02/16/23 11:29 pm Transcribed By: MIGDALIA Transcribed Date/Time: 02/16/23 11:[address] Head WO contrast * [facility] , CIS S: TRANSCRIBE Leslye CALLEJAS, Ronal: VERIFY Jensen Muñoz MD: SIGN Event Display: Result: Authored Date: [id number] CT Head/Brain W/O Contrast, CT Cervical Spine W/O Contrast INDICATION: Per pt was walking outside and had unwitnessed fall. + Head strike to left side. TECHNIQUE: Noncontrast head CT using axial technique was reconstructed in axial and coronal planes.Noncontrast spiral CT through the cervical spine was formatted in 3 planes. Automatic tube modulation was used for the cervical spine and iterative dose reconstruction was used for both the head and cervical spine to optimize scan parameters and image quality. CTDIvol Body: 16.80 mGy, DLP Body: 444 mGy*cm. CTDIvol Head: 41.10 mGy, DLP Head: 671 mGy*cm. COMPARISON: 02/04/2023. FINDINGS: Bulb Sorter View Findings, Lines and Tubes: None. BRAIN AND EXTRA-AXIAL SPACES: No parenchymal [...] TISSUES: No fractures or suspicious bony lesions. Moderate left maxillary sinus mucous retention cyst. The remaining paranasal sinuses and mastoid air cells are clear. Status-post bilateral lens extraction. Improved now small left periorbital hematoma as compared to prior. CERVICAL SPINE: No fracture. No acute osseous abnormalities. Normal alignment. No locked or perched facet. Severe multilevel degenerative disc space narrowing and end plate irregularity. OTHER BONES: No acute abnormality. CERVICAL SOFT TISSUES AND LUNG APICES: Normal soft tissues. Visualized lung apices are clear. IMPRESSION: No acute abnormality of the head or cervical spine. Improved now small left periorbital hematoma. I have personally reviewed the images and I agree with this report. WSN: [id number] Ordering Physician: Iva Ruiz Dictated By: Jensen Muñoz MD Dictated Date/Time: 02/16/23 11:24 p Reviewed By: Ronal Gavin MD Signed By: Ronal Gavin MD Signed Date/Time: 02/16/23 11:29 pm Transcribed By: MIGDALIA Transcribed Date/Time: 02/16/23 11:02 pm Laboratory * [facility] Morfin S: Reymundo Fernández MD: VERIFY Event Display: Result: Authored Date: [id number] AP and lateral chest x-ray dated February 17, 2023. Comparison films are from December 19, 2020. HISTORY: Shortness of breath. FINDINGS: Today's study is limited as the inferior and right lateral lateral aspect of the thorax are not completely included on the AP or lateral views. The cardiac silhouette is at the upper limits of normal for size. Hilar and mediastinal structures are unremarkable. No airspace infiltrate or pleural effusion is identified. Degenerative changes are present in the spine and shoulders. IMPRESSION: Mildly Limited study showing no evidence of acute pulmonary disease. Examination [address]1272. Thank you for allowing me to participate in the care of this patient. WSN: [id number] Ordering Physician: Iva Ruiz Dictated By: Reymundo Palomares MD Dictated Date/Time: 02/17/23 8:05 am Reviewed By: Reymundo Palomares MD Signed By: Reymundo Palomares MD Signed Date/Time: 02/17/23 8:05 am Transcribed By: MIGDALIA Transcribed Date/Time: 02/17/23 8:02 am XR Knee - left 1 or 2 Views * THE[facility]MA Morfin S: Reymundo Fernández MD: VERIFY Event Display: Result: Authored Date: [id number] Left knee 2 views dated February 17, 2023. No prior studies are available. HISTORY: Pain. FINDINGS: This examination shows no evidence of fracture or dislocation. There is mild loss of joint space in all 3 joint compartments. Calcification is noted along the superior pole of the patella. No joint effusion is seen. IMPRESSION: Minimal degenerative changes. No evidence of fracture or dislocation. Examination [address]60. Thank you for allowing me to participate in the care of this patient. WSN: [id number] Ordering Physician: Iva Ruiz Dictated By: Reymundo Palomares MD Dictated Date/Time: 02/17/23 8:07 am Reviewed By: Reymundo Palomares MD Signed By: Reymundo Palomares MD Signed Date/Time: 02/17/23 8:07 am Transcribed By: MIGDALIA Transcribed Date/Time: 02/17/23 8:07 am Patient Care team information Care Team Personnel Name: Moises BURKS, Adrian Position: [facility] RN Member Role: Primary Care Nurse Name: Jericho CALLEJAS, Ganga Ball Position: [facility] Physician - Primary Care Member Role: PCP Address: Address: [address] [place] [address]- Name: Crissy Howadr RN Position: [facility] ED RN W/OE and Tasks Member Role: Patient Care Provider Name: Adán Smith MD Position: [facility] ED Medicine MD Member Role: Admitting Physician Address: Address: [address] [place] [address]- Name: Luis Laird DO Position: [facility] Resident Member Role: Resident Address: Address: [address] [place] [address]- Name: Iva Byrd Position: [facility] ED TA [facility] Care Team Related Persons Name: CYN ALY Address: [address] [address]
--- OUTSIDE RECORDS SUMMARY | 2023-06-17 04:30 | XMS_ITS | Continuity of Care Document ---
Author Name Unknown Organization [facility] Address [address] [place] [id number]- Care Team Providers Care Pipe Fitter Supervisor Maintenance Name Role Phone Luma Noel MD Primary Care Physician [place] [facility] [place] 06/[place]/20 [facility] [address] [place] [address]- [facility] Allergies, Adverse Reactions, Alerts Substance Reaction Severity [...] 05/08/20 11:09:00 EDT, Route to Pharmacy Electronically, [facility], 183, cm, 05/08/20 [...] 05/08/20 11:09:00 EDT, Route to Pharmacy Electronically, [facility], 183, cm, 05/08/20 7:48:00 EDT, Height, 91.2, kg, 05/06/20 16:31:00 EDT, Dry... Start Date: 05/08/20 Status: Ordered
--- OUTSIDE RECORDS SUMMARY | 2023-06-17 04:30 | XMS_ITS | Continuity of Care Document ---
Author Name Unknown Organization [facility] Address [address] [place] [id number]- Care Team Providers Care Kettle Room Helper Name Role Phone Selma MARTINS, Tiarra M Primary Care Physician Encounter [facility] ACCT R [id number] Date(s): 07/23/22 - 11/20/22 [facility] [address] [place] [id number]- Referring Physician: Marisol Barron NP Allergies, Adverse Reactions, Alerts No Known Allergies [...] 05/08/20 11:09:00 EDT, Route to Pharmacy Electronically, [facility], 183, cm, 05/08/20 [...] 07/29/22 13:54:00 EST, Route to Pharmacy Electronically, [facility]/pharmacy #[id number], Partial fill upon patient request if the [...] Reference Physician Member Role: PCP Address: Address: [address] [place] [address] Care Team Related Persons Name: CYN ALY Address: home [address] [place] [address]
--- OUTSIDE RECORDS SUMMARY | 2023-06-17 04:30 | XMS_ITS | Continuity of Care Document ---
Author Name Unknown Organization [facility] Address [address] [place] [id number]- Care Team Providers Care Rigging Engineer Name Role Phone Selma MARTINS, Tiarra Rodriguez Primary Care Physician ( [phone] Encounter [facility] Date(s): 09/15/20 - 10/15/[address] [id number] Allergies, Adverse Reactions, Alerts Substance Reaction Severity [...] 05/08/20 11:09:00 EDT, Route to Pharmacy Electronically, [facility], 183, cm, 05/08/20 [...] 05/08/20 11:09:00 EDT, Route to Pharmacy Electronically, [facility], 183, cm, 05/08/20 7:48:00 EDT, Height, 91.2, kg, 05/06/20 16:31:00 EDT, Dry... Start Date: 05/08/20 Status: Ordered Social History Social History Type Response Smoking Status Never (less than 100 in lifetime) entered on: 07/28/20 Sex
--- OUTSIDE RECORDS SUMMARY | 2023-06-17 04:30 | XMS_ITS | Continuity of Care Document ---
Author Name Unknown Organization [facility] Address [address] [place] [id number]- Care Team Providers Care Mental Health Technician Name Role Phone Selma MARTINS, Tiarra M Primary Care Physician En[place] [facility] [place] [id number] Date(s): 07/26/22 - 08/28/22 [facility] [address] [place] [id number]- Attending Physician: Faisal Esquivel MD Admitting Physician: Faisal Esquivel MD Referring Physician: Marisol Barron NP Allergies, Adverse [...] 05/08/20 11:09:00 EDT, Route to Pharmacy Electronically, [facility], 183, cm, 05/08/20 7:48:00 [...] 07/29/22 13:54:00 EST, Route to Pharmacy Electronically, [facility]/pharmacy #[id number], Partial fill upon patient request if the [...] Care team information Care Team Personnel Name: Ardian De Leon RN Position: MADHAV RN Member Role: Primary Care Nurse Name: Tiarra Terry Position: Reference Physician Member Role: PCP Address: Address: [address] [place] [address]- Care Team Related Persons Name: CYN ALY Address: home [address] [place] [address]
--- OUTSIDE RECORDS SUMMARY | 2023-06-17 04:30 | XMS_ITS | Continuity of Care Document ---
Author Name Unknown Organization [facility] ter Address [address] [place] [id number] Care Team Providers Care Toll Repairer Central Office Name Role Phone Ganga Echavarria MD Primary Care Physician [phone] Encounter [facility] Date(s): 02/04/23 - 02/04/[address] [address]- Encounter Diagnosis Unwitnessed fall(Final) - 02/05/23 Discharge Disposition: A-D/C Home Attending Physician: Becka Cao MD Admitting Physician: Becka Cao MD Referring Physician: Not on Staff, Referring [...] 12/29/22 17:12:00 EDT, Route to Pharmacy Electronically, [facility]/pharmacy #[id number], Partial fill upon patient request [...] Refills, Maintenance, 01/28/23 8:25:00 EDT, [id number], 183, cm, 12/29/22 14:03:00 EDT, Height Start Date: 01/28/23 Stop Date: 02/27/23 Status: Ordered traZODone 50 mg oral tablet 1, tablet, By Mouth, Daily at bedtime, PRN, # 30 tablet, Refills 0, Maintenance, NEEDED FOR INSOMNIA, 01/21/23 15:24:00 EDT, Route to Pharmacy Electronically, [id number], 183, cm, 12/29/22 14:03:00 EDT, Height Start Date: 01/21/23 Status: Ordered Problem List Condition Confirmation Course Effective Dates Status Health St atus Informant Atrial fibrillation Confirmed Active Cataract Confirmed Active Chronic kidney disease (CKD), stage III (moderate) Confirmed Active Dementia Confirmed Active Gout Confirmed Active Hereditary cerebral amyloid angiopathy Confirmed Active HTN (hypertension) Confirmed Active Occasional tremors Confirmed Active ENEDINA (obstructive sleep apnea) Confirmed Active T2DM (type 2 diabetes mellitus) Confirmed Active Results Radiology Reports * Exam Date Time Procedure Performing Provider Status 02/04/23 5:[address] Maxilloface W/O Contrast Kandy , N icole; Auth (Verified) Notes: (CT Maxilloface W/O Contrast) Reason For Exam: Trauma RESULT: CT Maxilloface W/O Contrast CT Head/Brain W/O Contrast, CT Cervical Spine W/O Contrast, CT Maxilloface W/O Contrast INDICATION: Hx of Present Illness: Fall; Reason: Trauma; Clinical Question(s): Fracture Basal TECHNIQUE: Noncontrast head CT using axial technique was reconstructed in axial and coronal planes.Noncontrast spiral CT through the facial bones and cervical spine was formatted in 3 planes. Automatic tube modulation was used for the cervical spine and iterative dose reconstruction was used for both the head and cervical spine to optimize scan parameters and image quality. CTDIvol Body: 25.98 mGy, DLP Body: 826 mGy*cm. CTDIvol Head: 43.83 mGy, DLP Head: 789 mGy*cm. 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 BRAIN AND EXTRA-AXIAL SPACES: No parenchymal hemorrhage, midline shift, or mass effect. Ross-white matter differentiation is wellpreserved. No acute infarct. Negative insular ribbon sign. Atherosclerotic vascular calcification of the carotid arteries but negative hyperdense vessel sign. Moderate prominence of the ventricles and sulci consistent with parenchymal volume loss. Mild low-density white matter changes. No subarachnoid hemorrhage. No subdural or epidural collection. CALVARIUM, SKULL BASE, AND SOFT TISSUES: No fractures or suspicious bony lesions. Mucous retention cysts within the left maxillary sinus. Mild mucosal thickening of the right maxillary sinus. The mastoid air cells are clear. Status-post bilateral lens extraction. Left periorbital swelling as described below. MAXILLOFACIAL: Facial soft tissues: Significant left periorbital swelling with 2.4 cm supraorbital hematoma (series 605: Image 3). Nasal bones: No fracture. Orbits and orbital marquez: No fracture of the orbital marquez. No intraorbital hematoma. Maxilla and alveolus: No fracture. Pterygoid plates: No fracture. Visualized parapharyngeal spaces: Symmetric without suspicious or acute abnormality. Zygomatic arches: No fracture. Mandible: The portions included on the exam are normal. No fracture or dislocation. CERVICAL SPINE: No fracture. No acute osseous abnormalities. Trace anterolisthesis of C4 and C5. No locked or perched facet. Moderate multilevel degenerative disc space narrowing and end plate irregularity. Extensive large bridging anterior endplate osteophytes within the lower cervical and upper thoracic spine consistent with DISH. Mild spinal canal narrowing at C7-T1. OTHER BONES: No acute abnormality. CERVICAL SOFT TISSUES AND LUNG APICES: Unremarkable soft tissues. Visualized lung apices are clear. IMPRESSION: Significant left periorbital swelling with 2.4 cm supraorbital hematoma. Otherwise no acute abnormality of the head, face, or cervical spine. I have personally reviewed the images and I agree with this report. WSN: [id number] Ordering Physician: Samira Anderson Dictated By: Linda Neves MD Dictated Date/Time: 02/04/23 6:15 pm Reviewed By: Charli Briceño MD Signed By: Charli Briceño MD Signed Date/Time: 02/04/23 6:20 pm Transcribed By: MIGDALIA Transcribed Date/Time: 02/04/23 6:07 pm * Exam Date Time Procedure Performing Provider Status 02/04/23 5:[address] Cervical Spine W/O Contrast Joanne Gaitan; Elena (Verified) Notes: (CT Cervical Spine W/O Contrast) Reason For Exam: Neck trauma, dangerous injury mechanism;Other: RESULT: CT Cervical Spine W/O Contrast CT Head/Brain W/O Contrast, CT Cervical Spine W/O Contrast, CT Maxilloface W/O Contrast INDICATION: Hx of Present Illness: Fall; Reason: Trauma; Clinical Question(s): Fracture Basal TECHNIQUE: Noncontrast head CT using axial technique was reconstructed in axial and coronal planes.Noncontrast spiral CT through the facial bones and cervical spine was formatted in 3 planes. Automatic tube modulation was used for the cervical spine and iterative dose reconstruction was used for both the head and cervical spine to optimize scan parameters and image quality. CTDIvol Body: 25.98 mGy, DLP Body: 826 mGy*cm. CTDIvol Head: 43.83 mGy, DLP Head: 789 mGy*cm. 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 BRAIN AND EXTRA-AXIAL SPACES: No parenchymal hemorrhage, midline shift, or mass effect. Ross-white matter differentiation is wellpreserved. No acute infarct. Negative insular ribbon sign. Atherosclerotic vascular calcification of the carotid arteries but negative hyperdense vessel sign. Moderate prominence of the ventricles and sulci consistent with parenchymal volume loss. Mild low-density white matter changes. No subarachnoid hemorrhage. No subdural or epidural collection. CALVARIUM, SKULL BASE, AND SOFT TISSUES: No fractures or suspicious bony lesions. Mucous retention cysts within the left maxillary sinus. Mild mucosal thickening of the right maxillary sinus. The mastoid air cells are clear. Status-post bilateral lens extraction. Left periorbital swelling as described below. MAXILLOFACIAL: Facial soft tissues: Significant left periorbital swelling with 2.4 cm supraorbital hematoma (series 605: Image 3). Nasal bones: No fracture. Orbits and orbital marquez: No fracture of the orbital marquez. No intraorbital hematoma. Maxilla and alveolus: No fracture. Pterygoid plates: No fracture. Visualized parapharyngeal spaces: Symmetric without suspicious or acute abnormality. Zygomatic arches: No fracture. Mandible: The portions included on the exam are normal. No fracture or dislocation. CERVICAL SPINE: No fracture. No acute osseous abnormalities. Trace anterolisthesis of C4 and C5. No locked or perched facet. Moderate multilevel degenerative disc space narrowing and end plate irregularity. Extensive large bridging anterior endplate osteophytes within the lower cervical and upper thoracic spine consistent with DISH. Mild spinal canal narrowing at C7-T1. OTHER BONES: No acute abnormality. CERVICAL SOFT TISSUES AND LUNG APICES: Unremarkable soft tissues. Visualized lung apices are clear. IMPRESSION: Significant left periorbital swelling with 2.4 cm supraorbital hematoma. Otherwise no acute abnormality of the head, face, or cervical spine. I have personally reviewed the images and I agree with this report. WSN: [id number] Ordering Physician: Samira Anderson Dictated By: Linda Neves MD Dictated Date/Time: 02/04/23 6:15 pm Reviewed By: Charli Briceño MD Signed By: Charli Briceño MD Signed Date/Time: 02/04/23 6:20 pm Transcribed By: MIGDALIA Transcribed Date/Time: 02/04/23 6:07 pm * Exam Date Time Procedure Performing Provider Status 02/04/23 5:[address] Head/Brain W/O Contrast Marge Gaitan; Elena (Verified) Notes: (CT Head/Brain W/O Contrast) Reason For Exam: Trauma RESULT: CT Head/Brain W/O Contrast CT Head/Brain W/O Contrast, CT Cervical Spine W/O Contrast, CT Maxilloface W/O Contrast INDICATION: Hx of Present Illness: Fall; Reason: Trauma; Clinical Question(s): Fracture Basal TECHNIQUE: Noncontrast head CT using axial technique was reconstructed in axial and coronal planes.Noncontrast spiral CT through the facial bones and cervical spine was formatted in 3 planes. Automatic tube modulation was used for the cervical spine and iterative dose reconstruction was used for both the head and cervical spine to optimize scan parameters and image quality. CTDIvol Body: 25.98 mGy, DLP Body: 826 mGy*cm. CTDIvol Head: 43.83 mGy, DLP Head: 789 mGy*cm. 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 BRAIN AND EXTRA-AXIAL SPACES: No parenchymal hemorrhage, midline shift, or mass effect. Ross-white matter differentiation is wellpreserved. No acute infarct. Negative insular ribbon sign. Atherosclerotic vascular calcification of the carotid arteries but negative hyperdense vessel sign. Moderate prominence of the ventricles and sulci consistent with parenchymal volume loss. Mild low-density white matter changes. No subarachnoid hemorrhage. No subdural or epidural collection. CALVARIUM, SKULL BASE, AND SOFT TISSUES: No fractures or suspicious bony lesions. Mucous retention cysts within the left maxillary sinus. Mild mucosal thickening of the right maxillary sinus. The mastoid air cells are clear. Status-post bilateral lens extraction. Left periorbital swelling as described below. MAXILLOFACIAL: Facial soft tissues: Significant left periorbital swelling with 2.4 cm supraorbital hematoma (series 605: Image 3). Nasal bones: No fracture. Orbits and orbital marquez: No fracture of the orbital marquez. No intraorbital hematoma. Maxilla and alveolus: No fracture. Pterygoid plates: No fracture. Visualized parapharyngeal spaces: Symmetric without suspicious or acute abnormality. Zygomatic arches: No fracture. Mandible: The portions included on the exam are normal. No fracture or dislocation. CERVICAL SPINE: No fracture. No acute osseous abnormalities. Trace anterolisthesis of C4 and C5. No locked or perched facet. Moderate multilevel degenerative disc space narrowing and end plate irregularity. Extensive large bridging anterior endplate osteophytes within the lower cervical and upper thoracic spine consistent with DISH. Mild spinal canal narrowing at C7-T1. OTHER BONES: No acute abnormality. CERVICAL SOFT TISSUES AND LUNG APICES: Unremarkable soft tissues. Visualized lung apices are clear. IMPRESSION: Significant left periorbital swelling with 2.4 cm supraorbital hematoma. Otherwise no acute abnormality of the head, face, or cervical spine. I have personally reviewed the images and I agree with this report. WSN: [id number] Ordering Physician: Samira Anderson Dictated By: Linda Neves MD Dictated Date/Time: 02/04/23 6:15 pm Reviewed By: Charli Briceño MD Signed By: Charli Briceño MD Signed Date/Time: 02/04/23 6:20 pm Transcribed By: MIGDALIA Transcribed Date/Time: 02/04/23 6:07 pm Vital Signs Most recent to oldest [Reference Range]: 1 2 3 Oxygen Saturation [94-100 %] 95 % (02/04/23 9:18 PM) 99 % (02/04/23 6:13 PM) 98 % (02/04/23 3:47 PM) Pulse Rate [55-90 bpm] 63 bpm (02/04/23 9:18 PM) 99 bpm *H* (02/04/23 6:13 PM) 121 bpm *H* (02/04/23 3:47 PM) Blood Pressure [90-138/55-84 mm Hg] 111/65mm Hg (02/04/23 9:18 PM) 116/79mm Hg (02/04/23 6:13 PM) 127/90mm Hg (02/04/23 3:47 PM) Respiratory Rate [16-30 br/min] 16 br/min (02/04/23 9:18 PM) 21 br/min (02/04/23 6:13 PM) 22 br/min (02/04/23 3:47 PM) Temperature [96.8-100.4 DegF] 97.7 DegF (02/04/23 6:13 PM) 97.8 DegF (02/04/23 3:47 PM) Mode of Delivery (Oxygen) Room air (02/04/23 9:18 PM) Room air (02/04/23 6:13 PM) Room air (02/04/23 3:47 PM) Blood pressure sites Arm, left (02/04/23 9:18 PM) Arm, left (02/04/23 6:13 PM) Arm, right (02/04/23 3:47 PM) Temperature Route Oral (02/04/23 6:13 PM) Oral (02/04/23 3:47 PM) Social History Social History Type Response Smoking Status Never (less than 100 in lifetime) entered on: 07/22/22 Sex Note * Samira Carter: PERFORM Event Display: Patient Education Leaflets Authored Date: [id number] Scalp Bruise ?? [id number] Scalp Bruise A bruise (contusion) happens when small blood vessels break open and leak blood into the nearby area. A bruise on the scalp can result from a bump, hit, or fall. Newborns may have a bruised scalp from the birthing process. Symptoms can include changes in skin color. For instance, the skin may turn blue or black. Swelling and pain may also occur. The swelling should go down in a few days. Bruising and pain may take longer to go away. Home care General care ??? You may use acetaminophen to control pain, unless another pain medicine was prescribed. Don???t take aspirin or NSAIDs (nonsteroidal anti- inflammatory drugs like acetaminophen or ibuprofen) or blood-thinners (anticoagulants) such as warfarin without talking with your provider first. These can increase the risk of bleeding. ??? To help reduce swelling and pain, apply a cold pack to the injured area for up to 20 minutes at a time. Do this as often as directed. To make a cold pack, place ice in a plastic bag that seals at the top. Wrap the bag in a thin towel or cloth before using. Never put a cold pack or ice directly on your skin. ??? If you have cuts or scrapes around the si te of the bruise, care for them as directed. ?? Note about concussion Because the injury was to your head, it is possible that you could have a mild brain injury (concussion). Symptoms of a concussion can show up later. For this reason, be alert for symptoms of concussion once you???re home. Get emergency medical care if you have any of the symptoms below over the next hours or days: ??? Headache ??? Upset stomach (nausea) or vomiting ??? Dizziness ??? Sensitivity to light or noise??? Unusual sleepiness or grogginess ??? Trouble falling asleep ??? Personality changes ??? Vision changes ??? Memory loss ??? Confusion ??? Trouble walking or clumsiness ??? Loss of consciousness (even for a short time) ??? Trouble waking up During the time period that you???re watching for concussion symptoms: ??? Don???t drink alcohol or use sedatives or medicines that make you sleepy. ??? Don???t drive or operate machinery. ??? Don???t do anything strenuous, such as heavy lifting or straining. ??? Limit tasks that need concentration. This includes reading, watching TV, using a smartphone or computer, and playing video games. ??? Don???t return to sports, exercise, or other activity that could result in another injury. Ask your healthcare provider when you can safely resume these activities. ?? Follow-up care Follow up with your healthcare provider, or as directed. If imaging tests were done, they'll be reviewed by a doctor. You'll be told the results and any new findings that may affect your care. ?? When to get medical advice Call your healthcare provider right away if any of these occur: ??? Pain that gets worse or that can???t be relieved with medicines ??? New or increased swelling or bruising ??? Fever of 100.4??F (38??C) or higher, or as advised by your provider ??? Redness, warmth, or drainage from the injured area ??? Any depression or bony abnormality in the injured area ??? Fluid leaking or bleeding from the nose or ears ?? Call 911 Call 911 if any of these occur: ??? Stiff neck ??? Weakness or numbness in any part of the body ???Seizures ??? Trouble staying awake or confusion ?? Last Reviewed Date: 2022 ?? [id number] [employer] All rights reserved. This information is not intended as a substitute for professional medical care. Always follow your healthcare professional's instructions. ?? * Monica MARTINS, Samira Sainz: PERFORM Event Display: Patient Education Leaflets Authored Date: [id number] Fall with Uncertain Cause ?? [id number] Fall with Uncertain Cause You had a [...] color) ?? Last Reviewed Date: 2022 ?? [id number] [employer] All rights reserved. This information is not intended as a substitute for professional medical care. Always follow your healthcare professional's instructions. ?? CT Maxillofacial region WO contrast * [employer] , THELMA S: TRANSCRIBE Charli Briceño MD S: VERIFY Linda Neves MD: SIGN Event Display: Result: Authored Date: [id number] CT Head/Brain W/O Contrast, CT Cervical Spine W/O Contrast, CT Maxilloface W/O Contrast INDICATION: Hx of Present Illness: Fall; Reason: Trauma; Clinical Question(s): Fracture Basal TECHNIQUE: Noncontrast head CT using axial technique was reconstructed in axial and coronal planes.Noncontrast spiral CT through the facial bones and cervical spine was formatted in 3 planes. Automatic tube modulation was used for the cervical spine and iterative dose reconstruction was used for both the head and cervical spine to optimize scan parameters and image quality. CTDIvol Body: 25.98 mGy, DLP Body: 826 mGy*cm. CTDIvol Head: 43.83 mGy, DLP Head: 789 mGy*cm. 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 BRAIN AND EXTRA-AXIAL SPACES: No parenchymal hemorrhage, midline shift, or mass effect. Ross-white matter differentiation is wellpreserved. No acute infarct. Negative insular ribbon sign. Atherosclerotic vascular calcification of the carotid arteries but negative hyperdense vessel sign. Moderate prominence of the ventricles and sulci consistent with parenchymal volume loss. Mild low-density white matter changes. No subarachnoid hemorrhage. No subdural or epidural collection. CALVARIUM, SKULL BASE, AND SOFT TISSUES: No fractures or suspicious bony lesions. Mucous retention cysts within the left maxillary sinus. Mild mucosal thickening of the right maxillary sinus. The mastoid air cells are clear. Status-post bilateral lens extraction. Left periorbital swelling as described below. MAXILLOFACIAL: Facial soft tissues: Significant left periorbital swelling with 2.4 cm supraorbital hematoma (series 605: Image 3). Nasal bones: No fracture. Orbits and orbital marquez: No fracture of the orbital marquez. No intraorbital hematoma. Maxilla and alveolus: No fracture. Pterygoid plates: No fracture. Visualized parapharyngeal spaces: Symmetric without suspicious or acute abnormality. Zygomatic arches: No fracture. Mandible: The portions included on the exam are normal. No fracture or dislocation. CERVICAL SPINE: No fracture. No acute osseous abnormalities. Trace anterolisthesis of C4 and C5. No locked or perched facet. Moderate multilevel degenerative disc space narrowing and end plate irregularity. Extensive large bridging anterior endplate osteophytes within the lower cervical and upper thoracic spine consistent with DISH. Mild spinal canal narrowing at C7-T1. OTHER BONES: No acute abnormality. CERVICAL SOFT TISSUES AND LUNG APICES: Unremarkable soft tissues. Visualized lung apices are clear. IMPRESSION: Significant left periorbital swelling with 2.4 cm supraorbital hematoma. Otherwise no acute abnormality of the head, face, or cervical spine. I have personally reviewed the images and I agree with this report. WSN: [id number] Ordering Physician: Samira Anderson Dictated By: Linda Neves MD Dictated Date/Time: 02/04/23 6:15 pm Reviewed By: Charli Briceño MD Signed By: Charli Briceño MD Signed Date/Time: 02/04/23 6:20 pm Transcribed By: MIGDALIA Transcribed Date/Time: 02/04/23 6:[address] Cervical spine WO contrast * [employer] , CIS S: TRANSCRIBE Charli Briceño MD S: VERIFY Linda Neves MD: SIGN Event Display: Result: Authored Date: [id number] CT Head/Brain W/O Contrast, CT Cervical Spine W/O Contrast, CT Maxilloface W/O Contrast INDICATION: Hx of Present Illness: Fall; Reason: Trauma; Clinical Question(s): Fracture Basal TECHNIQUE: Noncontrast head CT using axial technique was reconstructed in axial and coronal planes.Noncontrast spiral CT through the facial bones and cervical spine was formatted in 3 planes. Automatic tube modulation was used for the cervical spine and iterative dose reconstruction was used for both the head and cervical spine to optimize scan parameters and image quality. CTDIvol Body: 25.98 mGy, DLP Body: 826 mGy*cm. CTDIvol Head: 43.83 mGy, DLP Head: 789 mGy*cm. 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 BRAIN AND EXTRA-AXIAL SPACES: No parenchymal hemorrhage, midline shift, or mass effect. Ross-white matter differentiation is wellpreserved. No acute infarct. Negative insular ribbon sign. Atherosclerotic vascular calcification of the carotid arteries but negative hyperdense vessel sign. Moderate prominence of the ventricles and sulci consistent with parenchymal volume loss. Mild low-density white matter changes. No subarachnoid hemorrhage. No subdural or epidural collection. CALVARIUM, SKULL BASE, AND SOFT TISSUES: No fractures or suspicious bony lesions. Mucous retention cysts within the left maxillary sinus. Mild mucosal thickening of the right maxillary sinus. The mastoid air cells are clear. Status-post bilateral lens extraction. Left periorbital swelling as described below. MAXILLOFACIAL: Facial soft tissues: Significant left periorbital swelling with 2.4 cm supraorbital hematoma (series 605: Image 3). Nasal bones: No fracture. Orbits and orbital marquez: No fracture of the orbital marquez. No intraorbital hematoma. Maxilla and alveolus: No fracture. Pterygoid plates: No fracture. Visualized parapharyngeal spaces: Symmetric without suspicious or acute abnormality. Zygomatic arches: No fracture. Mandible: The portions included on the exam are normal. No fracture or dislocation. CERVICAL SPINE: No fracture. No acute osseous abnormalities. Trace anterolisthesis of C4 and C5. No locked or perched facet. Moderate multilevel degenerative disc space narrowing and end plate irregularity. Extensive large bridging anterior endplate osteophytes within the lower cervical and upper thoracic spine consistent with DISH. Mild spinal canal narrowing at C7-T1. OTHER BONES: No acute abnormality. CERVICAL SOFT TISSUES AND LUNG APICES: Unremarkable soft tissues. Visualized lung apices are clear. IMPRESSION: Significant left periorbital swelling with 2.4 cm supraorbital hematoma. Otherwise no acute abnormality of the head, face, or cervical spine. I have personally reviewed the images and I agree with this report. WSN: [id number] Ordering Physician: Samira Anderson Dictated By: Linda Neves MD Dictated Date/Time: 02/04/23 6:15 pm Reviewed By: Charli Briceño MD Signed By: Charli Briceño MD Signed Date/Time: 02/04/23 6:20 pm Transcribed By: MIGDALIA Transcribed Date/Time: 02/04/23 6:[address] Head WO contrast * [facility] , CIS S: TRANSCRIBE Charli Briceño MD S: VERIFY Linda Neves MD: SIGN Event Display: Result: Authored Date: [id number] CT Head/Brain W/O Contrast, CT Cervical Spine W/O Contrast, CT Maxilloface W/O Contrast INDICATION: Hx of Present Illness: Fall; Reason: Trauma; Clinical Question(s): Fracture Basal TECHNIQUE: Noncontrast head CT using axial technique was reconstructed in axial and coronal planes.Noncontrast spiral CT through the facial bones and cervical spine was formatted in 3 planes. Automatic tube modulation was used for the cervical spine and iterative dose reconstruction was used for both the head and cervical spine to optimize scan parameters and image quality. CTDIvol Body: 25.98 mGy, DLP Body: 826 mGy*cm. CTDIvol Head: 43.83 mGy, DLP Head: 789 mGy*cm. 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 BRAIN AND EXTRA-AXIAL SPACES: No parenchymal hemorrhage, midline shift, or mass effect. Ross-white matter differentiation is wellpreserved. No acute infarct. Negative insular ribbon sign. Atherosclerotic vascular calcification of the carotid arteries but negative hyperdense vessel sign. Moderate prominence of the ventricles and sulci consistent with parenchymal volume loss. Mild low-density white matter changes. No subarachnoid hemorrhage. No subdural or epidural collection. CALVARIUM, SKULL BASE, AND SOFT TISSUES: No fractures or suspicious bony lesions. Mucous retention cysts within the left maxillary sinus. Mild mucosal thickening of the right maxillary sinus. The mastoid air cells are clear. Status-post bilateral lens extraction. Left periorbital swelling as described below. MAXILLOFACIAL: Facial soft tissues: Significant left periorbital swelling with 2.4 cm supraorbital hematoma (series 605: Image 3). Nasal bones: No fracture. Orbits and orbital marquez: No fracture of the orbital marquez. No intraorbital hematoma. Maxilla and alveolus: No fracture. Pterygoid plates: No fracture. Visualized parapharyngeal spaces: Symmetric without suspicious or acute abnormality. Zygomatic arches: No fracture. Mandible: The portions included on the exam are normal. No fracture or dislocation. CERVICAL SPINE: No fracture. No acute osseous abnormalities. Trace anterolisthesis of C4 and C5. No locked or perched facet. Moderate multilevel degenerative disc space narrowing and end plate irregularity. Extensive large bridging anterior endplate osteophytes within the lower cervical and upper thoracic spine consistent with DISH. Mild spinal canal narrowing at C7-T1. OTHER BONES: No acute abnormality. CERVICAL SOFT TISSUES AND LUNG APICES: Unremarkable soft tissues. Visualized lung apices are clear. IMPRESSION: Significant left periorbital swelling with 2.4 cm supraorbital hematoma. Otherwise no acute abnormality of the head, face, or cervical spine. I have personally reviewed the images and I agree with this report. WSN: [id number] Ordering Physician: Samira Anderson Dictated By: Linda Neves MD Dictated Date/Time: 02/04/23 6:15 pm Reviewed By: Charli Briceño MD Signed By: Charli Briceño MD Signed Date/Time: 02/04/23 6:20 pm Transcribed By: MIGDALIA Transcribed Date/Time: 02/04/23 6:07 pm Patient Care team information Care Team Personnel Name: Adrian De Leon RN Position: [facility] RN Member Role: Primary Care Nurse Name: Ganga Echavarria MD Position: [facility] Primary Care Physician Member Role: PCP Address: Address: [address] [place] [address]- Name: Ella Cho RN Position: [facility] ED RN W/OE and Tasks Member Role: Patient Care Provider Name: Gwen Seth Position: [facility] ED TA [facility] Member Role: ED Associate Name: Becka Cao MD Position: [facility] Resident Member Role: Admitting Physician Address: Address: [address] [place] [address]- Name: Samira Carter Position: [facility] Associate Professional Member Role: Physician Maintenance Chief Address: Address: [address] [place] [address]- Care Team Related Persons Name: CYN ALY Address: home [address] [place] [id number]
--- OUTSIDE RECORDS SUMMARY | 2023-06-17 04:30 | XMS_ITS | Continuity of Care Document ---
Author Name Unknown Organization [facility] Address [address], [address], [address] [place] [address]- Care Team Providers Care Junior Financial Analyst Name Role Phone Bert CALLEJAS, Luma Dixon Primary Care Physician [place] [facility] [place]20 [facility] [address], [address], [address] [place] [address]- [facility] Allergies, Adverse Reactions, Alerts Substance Reaction [...] 05/08/20 11:09:00 EDT, Route to Pharmacy Electronically, [facility], 183, cm, 05/08/20 7:48:00 EDT, [...] 05/08/20 11:09:00 EDT, Route to Pharmacy Electronically, [facility], 183, cm, 05/08/20 7:48:00 EDT, Height, 91.2, kg, 05/06/20 16:31:00 EDT, Dry... Start Date: 05/08/20 Status: Ordered
--- OUTSIDE RECORDS SUMMARY | 2023-06-17 04:30 | XMS_ITS | Continuity of Care Document ---
Author Name Unknown Organization [facility] Address [address] [place] [address]- Care Team Providers Care Egg Sorter Name Role Phone Selma MARTINS, Tiarra Rodriguez Primary Care Physician Encounter [facility] [place] Date(s): 07/22/22 - 08/21/22 [facility] [address] [place], [place] [address] Attending Physician: Marquez Graff Admitting Physician: Marquez Graff Referring Physician: AdmtrMarquez Allergies, Adverse Reactions, Alerts No Known Allergies [...] 05/08/20 11:09:00 EDT, Route to Pharmacy Electronically, [facility], 183, cm, 05/08/20 7:48:00 [...] 07/29/22 13:54:00 EST, Route to Pharmacy Electronically, [facility]/pharmacy #[id number], Partial fill upon patient request if the [...] Reference Physician Member Role: PCP Address: Address: [address] [place] [id number]- Care Team Related Persons Name: CYN ALY Address: home [address] [place] [id number]
[2023-06-17 04:52] LABS: Basophils Percent Auto 0.2 % (0-2); Eosinophils Percent Auto 0.1 % (0-4); Hematocrit 41.5 % (42.0-52.0); Hemoglobin 14.1 g/dl (14.0-18.0); Imm Gran Abs Auto 0.21 X10*3/uL (0.00-0.03); Imm Gran Pct Auto 1.6 % (0.0-0.4); Lymphocytes Absolute Auto 1.6 X10*3/uL (1.2-4.9); Lymphocytes Percent Auto 12.3 % (20-40); MANUAL DIFF FLAG NO; Mean Corpuscular Hemoglobin 31.3 pg (27.0-33.0); Mean Corpuscular Volume 92.2 fL (80.0-98.0); Mean Platelet Volume 9.7 fL (9.4-12.4); Monocytes Percent Auto 7.5 % (2-11); Neutrophils Absolute Auto 10.3 x10*3/uL (2.0-8.3); Neutrophils Percent Auto 78.3 % (45-73); Platelet Count 233 X10*3/uL (160-400); Red Cell Distribution Width 13.9 % (11.0-16.0); White Blood Count 13.1 X10*3/uL (4.8-10.8)
--- NOTE | 2023-06-17 04:59 | PC.NURSE ---
Pt found to be incontinent of urine on arrival, bedding changed, pt straight catheterized wihout complication for urine specimen nd to drain bladder with finding of urine retentino.
--- NOTE | 2023-06-17 04:59 | MHC.EDTECH ---
PATIENT CAME IN VIA FROM SNF ,PATIENT WAS SOAKED IN URINE ,CARE GIVEN ,CLEAN GOWN ON ,BLADDER SCAN DONE ,RN JOVANNA AWARE OF RESULT ,VITALS SIGN TAKEN AND BLOOD DRAWN, URINE SAMPLE COLLECTED AND SENT TO LAB ,PT COMFORTABLE WATCHING TELEVISION ,WILL CONTINUE TO MONITOR .
[2023-06-17 05:00] LABS: Appearance Urine Clear; Color Urine Yellow; Glucose Urine UA 500 mg/dL (Negative); Leukocyte Esterase Urine Negative (Negative); Nitrite Urine Negative (Negative); Urine Blood Negative (Negative); Urine Ketones Negative (Negative); Urine Protein Negative (Neg-Trace)
[2023-06-17 05:03] LABS: COVID-19 Test Negative (Negative); IDNOW Serial# BCCEAD1C
[2023-06-17 05:04] LABS: Bacteria Urine None Seen (None Seen); Hyaline Casts Urine 0-2 /LPF (0-2); RBC Urine 0-2 /HPF (0-2); Squamous Epithelial Cell Urine 0-2 /HPF (0-2); WBC Urine 0-5 /HPF (0-5)
[2023-06-17 05:07] LABS: IDNOW Serial# 9DB6401D; Influenza A Negative (Negative); Influenza B2 Negative (Negative)
[2023-06-17 05:08] LABS: Alanine Aminotransferase 14 U/L (0-40); Albumin Level 3.8 g/dL (3.5-5.0); Alkaline Phosphatase 116 U/L (39-117); Anion Gap 19 (12-20); Aspartate Amino Transferase 18 U/L (5-37); Bilirubin Total 0.5 mg/dL (0.0-1.0); Blood Urea Nitrogen 21 mg/dL (9-16); Calcium 9.5 mg/dL (8.4-10.2); Carbon Dioxide 23 mmol/L (22-29); Chloride 104 mmol/L (96-108); Creatinine Clr Calc Pharmacy 59.6; Estimated Glomerular Filt Rate > 60; Glucose Random 237 mg/dL (60-115); Potassium 4.8 mmol/L (3.3-5.1); Sodium 141 mmol/L (135-145); Total Protein 6.7 g/dL (6.5-8.0)
--- NOTE | 2023-06-17 05:45 | PC.NURSE ---
Report called to KIMMIE Avalos at [facility] for return trip.
[2023-06-17 06:13] VITALS: BP 107/80; PULSE 76; RESP 16; TEMP 36.9; O2SAT 97
== END 2023-06-17 06:40 | disposition home or self-care (01) ==
PROVIDERS: Emergency Provider Emergency Medicine
DX: R33.9 Retention of urine, unspecified (principal); F03.90 Unspecified dementia, unspecified severity, without behavioral disturbance, psychotic disturbance, mood disturbance, and anxiety; Z20.822 Contact with and (suspected) exposure to COVID-19
CPT/HCPCS: 36415; 51701; 51798; 80053; 81001; 85025; 87502; 87635; 99283; 99285

== ENCOUNTER 2024-04-20 06:32 | Outpatient (REF) | payer MEDICARE, SELFPAY ==
[2024-04-20 06:35] LABS: MANUAL DIFF FLAG NO
[2024-04-20 06:52] LABS: Basophils Absolute Auto 0.1 X10*3/uL (0.0-0.2); Basophils Percent Auto 0.8 % (0-2); Eosinophils Absolute Auto 1.2 X10*3/uL (0.0-0.4); Hematocrit 41.1 % (42.0-52.0); Hemoglobin 14.4 g/dl (14.0-18.0); Imm Gran Pct Auto 0.8 % (0.0-0.4); Lymphocytes Absolute Auto 2.1 X10*3/uL (1.2-4.9); Lymphocytes Percent Auto 16.2 % (20-40); Mean Corpuscular Volume 91.3 fL (80.0-98.0); Monocytes Absolute Auto 0.9 X10*3/uL (0.1-1.2); Monocytes Percent Auto 7.3 % (2-11); Neutrophils Absolute Auto 8.5 x10*3/uL (2.0-8.3); Neutrophils Percent Auto 65.9 % (45-73); Platelet Count 243 X10*3/uL (160-400); Red Cell Distribution Width 13.2 % (11.0-16.0); White Blood Count 12.9 X10*3/uL (4.8-10.8)
[2024-04-20 07:04] LABS: Estimated Average Glucose 166 mg/dL; Hemoglobin A1c % 7.4 % (<6.0)
[2024-04-20 07:12] LABS: Alanine Aminotransferase 8 U/L (0-40); Albumin Level 3.5 g/dL (3.5-5.0); Alkaline Phosphatase 111 U/L (39-117); Anion Gap 13 (12-20); Aspartate Amino Transferase 11 U/L (5-37); Bilirubin Total 0.8 mg/dL (0.0-1.0); Blood Urea Nitrogen 17 mg/dL (9-16); Calcium 9.7 mg/dL (8.4-10.2); Carbon Dioxide 25 mmol/L (22-29); Chloride 103 mmol/L (96-108); Cholesterol 147 mg/dL (<200); Estimated Glomerular Filt Rate > 60; Glucose Random 137 mg/dL (60-115); HDL Cholesterol 43 mg/dL (>40); LDL Cholesterol Calculated 91 mg/dL (<100); Potassium 3.9 mmol/L (3.3-5.1); Sodium 137 mmol/L (135-145); Total Protein 6.4 g/dL (6.5-8.0); Triglycerides 68 mg/dL (<150)
== END 2024-04-20 06:33 | disposition home or self-care (01) ==
LOC: HO.HSH3W 06:32
PROVIDERS: Visit Provider Internal Medicine Endocrinology, Diabetes & Metabolism
DX: E11.9 Type 2 diabetes mellitus without complications (principal); F03.90 Unspecified dementia, unspecified severity, without behavioral disturbance, psychotic disturbance, mood disturbance, and anxiety
CPT/HCPCS: 36415; 80053; 80061; 83036; 85025

== ENCOUNTER 2024-04-23 11:33 | Outpatient (REF) | payer MEDICARE, SELFPAY ==
[2024-04-23 11:57] LABS: Appearance Urine Clear; Color Urine Yellow; Glucose Urine UA 250 mg/dL (Negative); Leukocyte Esterase Urine Trace (Negative); Nitrite Urine Negative (Negative); PH 5.5 (5.0-9.0); Specific Gravity - Urine 1.015 (1.005-1.025); UMIC TRIGGER UA YES; Urine Blood Negative (Negative); Urine Ketones Negative (Negative); Urine Protein 30 (1+) mg/dL (Neg-Trace)
[2024-04-23 12:00] LABS: Bacteria Urine None Seen (None Seen); Hyaline Casts Urine 0-2 /LPF (0-2); RBC Urine 0-2 /HPF (0-2); WBC Urine 0-5 /HPF (0-5)
== END 2024-04-23 11:34 | disposition home or self-care (01) ==
LOC: HO.HSH3W 11:33
PROVIDERS: Visit Provider Internal Medicine Endocrinology, Diabetes & Metabolism
DX: N28.9 Disorder of kidney and ureter, unspecified (principal)
CPT/HCPCS: 81001

== ENCOUNTER 2024-04-25 06:37 | Outpatient (REF) | payer MEDICARE, SELFPAY ==
[2024-05-01 19:52] LABS: Levetiracetam Keppra 27.9 mcg/mL (6.0-46.0)
== END 2024-04-25 06:38 | disposition home or self-care (01) ==
LOC: HO.HSH3E 06:37
PROVIDERS: Visit Provider Nurse Practitioner Acute Care
DX: R56.9 Unspecified convulsions (principal); Z79.899 Other long term (current) drug therapy
CPT/HCPCS: 36415; 80177